=== PATIENT | female | born 1960 | race American Indian/Alaskan Native ===

== ENCOUNTER 2016-08-29 20:33 | Inpatient (IN) | payer MEDICAID ==
[2016-08-29 21:42] LABS: Hematocrit 30.2 % (30.3-42.9); Hemoglobin 9.1 gm/dl (10.1-14.3); Mean Corpuscular HGB Conc 30 % (30-34); Mean Corpuscular Volume 82 fl (79-97); Platelet Count 208 K/mm3 (140-440); White Blood Count 6.8 K/mm3 (4.5-11.0)
[2016-08-29 21:43] LABS: Mean Corpuscular Hemoglobin 25 pg (28-32); Red Cell Distribution Width 25.2 % (13.2-15.2)
[2016-08-29 21:50] LABS: Anion Gap 20 mmol/L; BUN/Creatinine Ratio 20.83; Blood Urea Nitrogen 25 mg/dL (7-17); Calcium 8.5 mg/dL (8.4-10.2); Carbon Dioxide 18 mmol/L (22-30); Chloride 95.8 mmol/L (98-107); Glucose 230 mg/dL (65-100); Potassium 4.5 mmol/L (3.6-5.0); Sodium 129 mmol/L (137-145)
[2016-08-29 22:20] LABS: Basophils % (Manual) 0 % (0.0-1.8); Blastocytes % (Manual) 0 %
[2016-08-29 22:21] LABS: Anisocytosis 2+; Elliptocytes Few
[2016-08-29 22:22] LABS: Diff Status Complete; Poikilocytosis 1+
[2016-08-30] MEDS ORDERED: NACL 0.9% 500 ML 500 ML IV ONE (06:48)
[2016-08-30] MEDS ORDERED: MORPHINE IV ONE (06:53)
[2016-08-30] MEDS ORDERED: NACL 0.9% 1000 ML 1,000 ML IV ONE (06:53)
--- NOTE | 2016-08-30 07:01 | Emergency Department Report ---
HPI - General Chief Complaint: Chest Pain Time Seen by Provider: 08/30/16 06:45 - HPI HPI: This is a 56-year-old Afro-Citizen Of [place] female who presents to the emergency department with complaint of intermittent chest pains from chronic angina but the patient says that she has been feeling worse over the past 3 days. She has some midsternal to right sided chest discomfort that radiates down the right arm causing some decreased sensation. She has some intermittent shortness of breath. She denies any nausea, vomiting, diaphoresis, back pain. The patient has a history of coronary artery disease with a history of 7 total stents. She has a history of previous PE but is also results of and has not missed any doses. She has a history of ischemic cardiomyopathy and her last echocardiogram in July showed a ejection fraction of 2024%. Patient was here one week ago and had a negative stress test for ischemia and was discharged with instructions to follow-up in 1-2 weeks in the office. Patient' s border guard is Dr. Agustín Jackson but she was seen here by [facility] cardiology. She has been taking her current medications but otherwise nothing else for her discomfort prior to presentation. She also has a past medical history of hypertension, hyperlipidemia, diabetes. ED Past Medical Hx - Past Medical History Hx Hypertension: Yes Hx Heart Attack/AMI: Yes Hx Congestive Heart Failure: (patient states) Hx Diabetes: Yes Hx Deep Vein Thrombosis: No Hx of Cancer: Yes (Uterine) Hx Seizures: No Hx Asthma: No Hx COPD: No Hx Dementia: No Additional medical history: CAD - Surgical History Hx Coronary Stent: Yes ((7) heart stents) Hx Pacemaker: No Hx Internal Defibrillator: No Additional Surgical History: HYSTERECTOMY - Social History Smoking Status: Never Smoker Substance Use Type: None - Medications Home Medications: Home Medications Medication Instructions Recorded Confirmed Last Taken Type Aspirin [Aspirin BABY CHEW TAB] 81 mg PO QDAY #30 tab.chew 08/15/16 08/30/16 Unknown Rx AtorvaSTATin [Lipitor] 40 mg PO QHS #30 tablet 08/15/16 08/30/16 Unknown Rx Carvedilol [Coreg] 12.5 mg PO BID #60 tablet 08/15/16 08/30/16 Unknown Rx ISOSORBIDE MONOnitrate [Imdur ER] 30 mg PO QDAY #30 tablet 08/15/16 08/30/16 Unknown Rx Lisinopril [Zestril TAB] 10 mg PO QDAY #30 tablet 08/15/16 08/30/16 Unknown Rx Rivaroxaban [Xarelto] 20 mg PO QDAY 08/15/16 08/30/16 Unknown History risperiDONE [RisperiDONE] 1 mg PO DAILY 08/15/16 08/30/16 Unknown History traMADol [Ultram] 50 mg PO Q6H PRN 08/15/16 08/30/16 Unknown History ED Review of Systems ROS: Stated complaint: CHEST PAIN, SHORTNESS OF BREATH Other details as noted in HPI Comment: All other systems reviewed and negative Constitutional: denies: chills, fever Eyes: denies: eye pain, eye discharge, vision change ENT: denies: ear pain, throat pain Respiratory: shortness of breath. denies: cough Cardiovascular: denies: chest pain, palpitations Gastrointestinal: denies: abdominal pain, nausea, diarrhea Genitourinary: denies: urgency, dysuria, discharge Musculoskeletal: denies: back pain, joint swelling, arthralgia Skin: denies: rash, lesions Neurological: denies: headache, weakness, paresthesias Physical Exam - Physical Exam Vital Signs: Vital Signs 08/29/16 08/29/16 20:42 20:57 Temperature 98.1 F 98.1 F Pulse Rate 80 80 Respiratory 18 Rate Blood Pressure 142/87 Blood Pressure 142/87 [Right] O2 Sat by Pulse 100 100 Oximetry Physical Exam: GENERAL: The patient is well-developed well-nourished. HEENT: Normocephalic. Atraumatic. Extraocular motions are intact. Patient has moist mucous membranes. Pupils equal reactive to light bilaterally. NECK: Supple. Trachea is midline. CHEST/LUNGS: Clear to auscultation. There is no respiratory distress noted. HEART/CARDIOVASCULAR: Regular. There is no tachycardia. There is no gallop rub or murmur. ABDOMEN: Abdomen is soft, nontender. Patient has normal bowel sounds. There is no abdominal distention. SKIN: Skin is warm and dry. 1-2+ pitting edema to the bilateral lower extremities. NEURO: The patient is awake, alert, and oriented. The patient is cooperative. The patient has no focal neurologic deficits. The patient has normal speech. MUSCULOSKELETAL: There is no tenderness or deformity. There is no limitation range of motion. There is no evidence of acute injury. ED Course Vital Signs 08/29/16 08/29/16 20:42 20:57 Temperature 98.1 F 98.1 F Pulse Rate 80 80 Respiratory 18 Rate Blood Pressure 142/87 Blood Pressure 142/87 [Right] O2 Sat by Pulse 100 100 Oximetry ED Medical Decision Making - Lab Data Result diagrams: 08/29/16 21:16 08/29/16 21:16 - EKG Data -: EKG Interpreted by Me EKG shows normal: sinus rhythm, axis, intervals, QRS complexes, ST-T waves (Non- specific St-T waves) - Radiology Data Radiology results: image reviewed interpreted by me: Chest x-ray shows mild to moderate cardiomegaly but otherwise there is no obvious pleural effusions or pneumonia or pneumothorax. - Medical Decision Making 56-year-old female presents to the emergency department with complaint of chest pain and some intermittent shortness of breath. Patient has a significant history for coronary artery disease with 7 stents as well as a history of CHF. Patient otherwise had negative troponins 3. No d-dimer or CT angiography was checked as the patient is on Zaroxolyn says she takes compliantly. Patient was given a dose of pain medication for her chest discomfort but has not gotten any relief. Due to her level of discomfort and her significant history the patient will be admitted to the hospital for further evaluation. Patient has been accepted for admission by the hospitalist, Dr. Farrar. - Differential Diagnosis [place], CHF, pneumonia, costochondritis, GERD Critical Care Time: No Critical care attestation.: If time is entered above; I have spent that time in minutes in the direct care of this critically ill patient, excluding procedure time. ED Disposition Clinical Impression: Hyponatremia Chest pain Qualifiers: Chest pain type: unspecified Qualified Code(s): R07.9 - Chest pain, unspecified Lower extremity edema Qualifiers: Laterality: bilateral Qualified Code(s): R60.0 - Localized edema Disposition: OP ADMITTED IP TO THIS HOSP Is pt being admited?: Yes Does the pt Need Aspirin: Yes Condition: Stable Instructions: Chest Pain (ED) Referrals: PRIMARY CARE, [Primary Care Provider] - 3-5 Days Time of Disposition: 10:52
--- NOTE | 2016-08-30 09:16 | Admit Criteria Form ---
Admission Criteria Documentation: CARDIOLOGY GRG Clinical Indications for Admission to Inpatient Care ( Place 'X' for any and all applicable criteria): Hospital admission is needed for appropriate care of the patient because of ANY ONE of the following (1): [ ] I. Hemodynamic instability as indicated by ALL of the following (1)(2)(3) (4)(5) [ ]a) Vital signs or other findings not as expected for chronic patient condition or baseline [ ]b) Instability indicated by ANY ONE of the following: [ ]i) Hypotension [ ]ii) Symptomatic Tachycardia unresponsive to treatment ( e.g., analgesia, fluids, sedation as indicated) [ ]iii) Inadequate perfusion indicated by ANY ONE of the following: [ ] 1) Lactic acidosis (> 2 mmol/L) [ ] 2) New abnormal capillary refill (> 3 seconds) [ ] 3) Reduced urine output [ ] 4) New altered mental status [ ]iv) Orthostatic vital sign changes unresponsive to treatment (e.g., fluids) [ ]v) IV inotropic or vasopressor medication required to maintain adequate blood pressure or perfusion [ ] II. Severe heart failure as indicated by ANY ONE of the following(17)(18) [ ]a) Respiratory distress [ ]b) Hypotension [ ]c) Anasarca (refractory to outpatient therapy) [ ]d) Cardiac arrhythmias of immediate concern [ ]e) Myocardial ischemia [ ] III. Cardiac arrhythmias or findings of immediate concern indicated by ANY ONE of the following (19)(20): [ ] a) Heart rhythms that are inherently dangerous or unstable indicated by ANY ONE of the following (21)(22)(23): [ ] i) Resuscitated ventricular fibrillation or cardiac arrest [ ] ii) Ventricular escape rhythm [ ] iii) Sustained ventricular tachycardia (30 seconds or more of ventricular rhythm at greater than 100 beats per minute) [ ] iv) Nonsustained ventricular tachycardia and ANY ONE of the following: [ ] 1) Suspected cardiac ischemia as cause or consequence of ventricular tachycardia [ ] 2) In setting of acute myocarditis [ ] b) Unstable cardiac conduction defects indicated by ANY ONE of the following(23)(24)(25) [ ] i) Type II second-degree atrioventricular block [ ]ii) Third-degree atrioventricular block [ ]iii) New-onset left bundle branch block with suspected myocardial ischemia [ ]c) Any heart rhythm and ANY ONE of the following (21)(22)(26)(27) (28) [ ] i) Continuous long-term ECG monitoring needed (e.g., initiation of drug requiring monitoring for more than 24 hours) [ ] ii) Patient has automatic implanted cardioverter defibrillator that is repeatedly firing, malfunctioning, or in need of immediate adjustment of settings beyond the scope of ambulatory or observation care [ ]d) Heart rhythms of concern due to ANY ONE of the following: [ ] i) Hypotension [ ] ii) Respiratory distress [ ] iii) Association with other significant symptoms (e.g., bradycardia with syncope or ongoing dizziness, supraventricular tachycardia with chest pain (14)(15)(17) [ ] IV. Monitoring for cardiac contusion beyond the scope of observation care needed [A](30)(31)(32) [ ] V. Surgical or device complication (e.g., valve replacement complication , pacemaker dysfunction) (35)(41)(44)(45)(46) [ ] . Inpatient palliative care needed. [B](49) Also use Inpatient Palliative Care Criteria [ ] VII. Nonbacterial thrombotic (marantic) endocarditis (36)(43)(47)(48) [X ] VIII. Cardiology condition, symptom, or finding for which emergency and observation care has failed or are not considered appropriate. [ ] IX. Acute valvular disease requiring inpatient as indicated by ANY ONE of the following (41) [ ]a) Acute valvular regurgitation (42) [ ]b) Noninfectious valvulitis (43) [ ]c) Obstructive valve thrombosis [ ]d) Paravalvular leak [ ]e) Other significant valvular disorder remaining after emergency or observation level of care (as appropriate) [ ]X. Pericardial disease requiring inpatient treatment as indicated by ANY ONE of the following (33)(34)(35)(36)(37) [ ]a) Suspected tamponade (38)(39)(40) [ ]b) Hemopericardium [ ]c) Other significant pericardial disorder remaining after emergency or observation level of care (as appropriate) [ ] XI. Cardiac ischemia beyond scope of emergency and observation care. [ ] XII. Hypertension requiring inpatient treatment as indicated by ANY ONE of the following (6)(7)(8) [ ]a) SBP greater than 220 mm Hg or DBP greater than 120 mmHg despite treatment [ ]b) SBP greater than 140 mm Hg or DBP greater than 100 mm Hg with evidence of acute end organ damage as indicated by ANY ONE of the following [ ] i) Altered mental status [ ] ii) Acute renal failure as indicated by new onset of ANY ONE of the following (9)(10)(11)(12)(13) [ ]1) 3-fold rise in serum creatinine from baseline [ ]2) Serum creatinine greater than 4 mg/dL ( 354 micromoles/L) with acute rise greater than 0.5 mg/dL (44.2 micromoles/L) [ ]3) Reduction of more than 75% in estimated glomerular filtration rate from baseline [ ]4) Estimated glomerular filtration rate less than 35 mL/min/1.73m2 (0.59 mL/sec/1.73m2) in child up to 18 years of age [ ]5) Cessation of urine output indicated by ALL of the following [ ]A. Adequate volume status [ ]B. Inadequate urine output as indicated by ANY ONE of the following [ ]a. Urine output less than 0.3 mL/kg/hr for 24 hours [ ]b. Anuria (urine output less than 0.1 mL/kg/hr) for 12 hours [ ] iii) Aortic dissection [ ] iv) Myocardial Ischemia [ ] v) Left ventricular heart failure [ ]vi) Retinal Hemorrhage [ ]vii) Other significant finding [ ]c) Hypertension in child requiring inpatient treatment as indicated by ALL of the following(14)(15)(16) [ ] i) Outpatient treatment not effective, not available, or not appropriate [ ]ii) SBP or DBP greater than 95th percentile for age [ ]iii) Evidence of acute end organ damage as indicated by ANY ONE of the following [ ]1) Altered mental status [ ]2) Acute renal failure as indicated by new onset of ANY ONE of the following(9)(10)(11)(12)(13) [ ]A. 3-fold rise in serum creatinine from baseline [ ]B. Serum creatinine greater than 4 mg/dL (354 micromoles/L) with acute rise greater than 0.5 mg/dL (44.2 micromoles/L) [ ]C. Reduction of more than 75% in estimated glomerular filtration rate from baseline [ ]D. Estimated glomerular filtration rate less than 35 mL/min/1.73m2 (0.59 mL/sec/1.73m2) in child up to 18 years of age [ ]E. Cessation of urine output indicated by ALL of the following [ ]a. Adequate volume status [ ]b. Inadequate urine output as indicated by ANY ONE of the following [ ]i) Urine output less than 0.3 mL/kg/hr for 24 hours [ ]ii) Anuria ( urine output less than 0.1 mL/kg/hr) for 12 hours [ ]3) Severe headache [ ]4) Visual disturbance [ ]5) Retinal hemorrhage [ ]6) Other significant finding [ ]XIII. Complications of transplanted heart indicated by ANY ONE of the following(61): [ ]a) Acute graft rejection requiring inpatient management (eg, intravenous immunosuppression)(62)(63) [ ]b) Acute graft heart failure indicated by ANY ONE of the following(64): [ ]i) Hemodynamic instability [ ]ii) Cardiac arrhythmias of immediate concern [ ]iii) Pulmonary edema that is very severe (eg, mechanical ventilation needed, imminent or likely, need for 100% oxygen to keep oxygen saturation above 90%) [ ]iv) Pulmonary edema that is persistent as indicated by ALL of the following: [ ]1) New need for oxygen therapy to keep oxygen saturation above 90% (or increased FiO2 need from baseline) [ ]2) Has not improved sufficiently with emergency department or observation care IV diuretics or other heart failure treatments[E] [ ]v) Altered mental status that is severe or persistent [ ]vi) Increased creatinine (new on laboratory test) with reduction of more than 50% in estimated glomerular filtration rate from baseline [ ]vii) Progressively (ongoing) rising creatinine (known from past laboratory test) with reduction of more than 25% in estimated glomerular filtration rate from baseline [ ]viii) Acute renal failure [ ]ix) Acute peripheral ischemia (eg, examination shows pulseless, cool, mottled, or cyanotic extremity) [ ]x) Pulmonary artery catheter monitoring needed [ ]xi) Other sign or symptom of heart failure requiring inpatient treatment (ie, too severe or not responsive to outpatient and observation care treatment) [ ]c) Infection requiring inpatient management (eg, Hemodynamic instability, need for intravenous antimicrobial treatment)(66)(67)(68)(69)(70) [ ]d) Cardiac allograft vasculopathy requiring inpatient management ( eg evidence of cardiac ischemia)(71) [ ]e) Other complication of transplanted heart (eg, stroke, severe pulmonary hypertension, severe valvular dysfunction) requiring inpatient management(72) The original [facility] [employer] content created by [employer] has been revised. The portions of the content which have been revised are identified through the use of italic text or in bold, and [facility] has neither reviewed nor approved the modified material. All other unmodified content is copyright [facility] [employer]. Please see references footnoted in the original [facility] [employer] edition 2016 Admission Criteria Met: Yes
--- NOTE | 2016-08-30 09:21 | XRay Report ---
Single view chest: Compared to 08/12/16. History: Chest pain. Findings: Mild cardiomegaly. Trachea is midline. No consolidation, pneumothorax or pleural effusion. Impression: No acute cardiopulmonary findings.
[2016-08-30] MEDS ORDERED: BABY ASPIRIN PO ONE (10:52)
[2016-08-30] MEDS ORDERED: SODIUM CHLORIDE FLUSH SYRINGE 10 ML IV PRN (11:47)
[2016-08-30] MEDS ORDERED: COREG PO SCH (12:00)
--- NOTE | 2016-08-30 12:11 | History and Physical Report ---
History of Present Illness Date of examination: 08/30/16 Date of admission: 08/30/16 Chief complaint: Chest pain. 3 days duration History of present illness: Patient is a 56-year-old lady who was a history of carotid disease status post several stent placements, congestive failure, bipolar disorder, presented emergency department with left-sided chest pain, radiating to the right chest and down the right arm. Endorses shortness of breath diaphoresis. Nausea vomiting 1. Klebsiella 101. Denies any abdominal pain. Diarrhea was felt to 5 times a day. Resolving. Denies any orthopnea proximal nocturnal dyspnea or palpitations. Initial troponin level was normal. ProBNP on admitted to the emergency department was 2703. Has a history of bipolar disorder. Had a normal stress test 10 days ago this hospital. Contacted the dock superintendent Dr. magdaleno Alexander who agrees see the patient. Past History Past Medical History: CAD, diabetes, hypertension, hyperlipidemia Medications and Allergies Allergies Allergy/AdvReac Type Severity Reaction Status Date / Time codeine Allergy Hives Verified 06/15/14 05:41 Home Medications Medication Instructions Recorded Confirmed Last Taken Type Aspirin [Aspirin BABY CHEW TAB] 81 mg PO QDAY #30 tab.chew 08/15/16 08/30/16 Unknown Rx AtorvaSTATin [Lipitor] 40 mg PO QHS #30 tablet 08/15/16 08/30/16 Unknown Rx Carvedilol [Coreg] 12.5 mg PO BID #60 tablet 08/15/16 08/30/16 Unknown Rx ISOSORBIDE MONOnitrate [Imdur ER] 30 mg PO QDAY #30 tablet 08/15/16 08/30/16 Unknown Rx Lisinopril [Zestril TAB] 10 mg PO QDAY #30 tablet 08/15/16 08/30/16 Unknown Rx Rivaroxaban [Xarelto] 20 mg PO QDAY 08/15/16 08/30/16 Unknown History risperiDONE [RisperiDONE] 1 mg PO DAILY 08/15/16 08/30/16 Unknown History traMADol [Ultram] 50 mg PO Q6H PRN 08/15/16 08/30/16 Unknown History Active Meds: Active Medications Aspirin (Ecotrin) 325 mg PO QDAY ROMY Atorvastatin Calcium (Lipitor) 40 mg PO QHS ROMY Carvedilol (Coreg) 12.5 mg PO BID ROMY Docusate Sodium (Colace) 100 mg PO BID ROMY Furosemide (Lasix) 20 mg IV QDAY [facility] Heparin Sodium (Porcine) (Heparin) 5,000 unit SUB-Q Q12HR [facility] Sodium Chloride (Nacl 0.9% 1000 Ml) 1,000 mls @ 150 mls/hr IV ONCE ONE Stop: 08/30/16 13:32 Last Admin: 08/30/16 09:09 Dose: 150 mls/hr Lisinopril (Zestril) 10 mg PO QDAY [facility] Morphine Sulfate (Morphine) 2 mg IV Q6HR PRN PRN Reason: Chest Pain Nitroglycerin (Nitro-Bid 2%) 1 inch TP TIDNTG ROMY PRN Reason: Protocol Potassium Chloride (K-Dur) 10 meq PO QDAY [facility] Risperidone (Risperdal) 1 mg PO DAILY [facility] Rivaroxaban (Xarelto) 20 mg PO QDAY ROMY PRN Reason: Protocol Sodium Chloride (Sodium Chloride Flush Syringe 10 Ml) 10 ml IV PRN PRN PRN Reason: LINE FLUSH Review of systems Constitutional: Well Nouridhed and Well developed. Head: NC/ AT Eyes: Denies any visual impairments. No discharge from the eyes Nose: Denies any rhinorrhea or epistaxis Throats: Denies any post nasal drainage. Ears: Denies any hearing deficits Cardiovascular system: Has chest pain, shortness of breath. Denies orthopnea, paroxysmal nocturnal dyspnea, or palpitation. Respiratory system: Denies any cough, difficulty breathing, wheezing, pleuritic chest pain, Gastrointestinal system: Denies any abdominal pain, nausea vomiting, hematemesis or melena. Endorses nausea vomiting diarrhea Neurological system: Denies any headache, slurred speech, facial droop, lateralizing weakness Genitalia system: Denies any dysuria, urinary frequency or urgency, urethral discharge Skin: No rashes, hyperpigmented spots. Hematological: Denies any cervical tenderness hemorrhages or petechia. Immunological: Denies any multiple septic spots, Lymphatic: Denies any generalized lymphadenopathy. Endocrine: Denies any polyuria, polydipsia, polyphagia. No heat or cold intolerance. Musculoskeletal system: No joint pain or swelling. Psych: No visual, tactile, auditory or hallucination Exam - Constitutional Vitals: Temp Pulse Resp BP Pulse Ox 98.1 F 94 H 25 H 164/90 100 08/29/16 20:57 08/30/16 11:32 03/18/17 11:32 08/30/16 11:32 08/30/16 11:00 General appearance: Present: no acute distress, well-nourished - EENT Eyes: Present: PERRL ENT: hearing intact, clear oral mucosa - Neck Neck: Present: supple, normal ROM - Respiratory Respiratory effort: normal Respiratory: bilateral: CTA - Cardiovascular Heart Sounds: Present: S1 & S2. Absent: rub, click - Extremities Extremities: pulses symmetrical, No edema Peripheral Pulses: within normal limits - Abdominal General gastrointestinal: Present: soft, non-tender, non-distended, normal bowel sounds Female genitourinary: Present: normal - Integumentary Integumentary: Present: clear, warm, dry - Musculoskeletal Musculoskeletal: gait normal, strength equal bilaterally - Psychiatric Psychiatric: appropriate mood/affect, intact judgment & insight - Neurologic Neurologic: CNII-XII intact, moves all extremities Results - Labs CBC & Chem 7: 08/29/16 21:16 08/29/16 21:16 Labs: Abnormal lab results 08/29/16 08/29/16 08/30/16 Range/Units 21:16 21:16 03:24 Hgb 9.1 L (10.1-14.3) gm/dl Hct 30.2 L (30.3-42.9) % MCH 25 L (28-32) pg RDW 25.2 H (13.2-15.2) % Seg Neuts % (Manual) 74.0 H (40.0-70.0) % Sodium 129 L (137-145) mmol/L Chloride 95.8 L (98-107) mmol/L Carbon Dioxide 18 L (22-30) mmol/L BUN 25 H (7-17) mg/dL Glucose 230 H (65-100) mg/dL NT-Pro-B Natriuret Pep 2703 H (0-900) pg/mL Assessment and Plan 1. Chest pain: Commence patient on oxygen nitroglycerin aspirin and morphine. Carotids consult for stress thallium. 2. Systolic heart failure: Continue the patient on carvedilol, lisinopril, Lasix. Echocardiogram if not was done in the past 6 months. 2 g sodium diet. Strict input and output chart. Daily weights. 3. Diabetes mellitus: Consistent carbohydrates diet as well as cardiac diet. Sliding scale insulin. 4. Bipolar disorder. Patient on risperidone. We'll continue with the same. 5. DVT prophylaxis and GI prophylaxis with Xeralto which patient is already on possibly from cardiaomyopathy. Pepcid for GI prophylaxis. Spent 35 minutes in direct patient care radiological and laboratory data during this admission process. Spoke with dock superintendent. Explained care plan to the Patient Was Progressed Understanding.
[2016-08-30] MEDS ORDERED: ZOFRAN ONE (12:15)
[2016-08-30] MEDS ORDERED: ZOFRAN IV PRN (12:16)
[2016-08-30] MEDS: LASIX IV SCH (12:30)
[2016-08-30] MEDS: MORPHINE IV PRN ×2 (12:32→19:08)
[2016-08-30] MEDS: HEPARIN SUB-Q SCH ×2 (12:33→22:07)
[2016-08-30] MEDS: NITRO-BID 2% TP SCH ×2 (12:35→20:31)
[2016-08-30 12:50] LABS: INR 1.3 (0.87-1.13)
[2016-08-30 12:51] LABS: Partial Thromboplastin Time 31.7 Sec. (24.2-36.6)
[2016-08-30 12:52] LABS: Creatine Kinase MB 3.1 ng/mL (0.0-4.0)
[2016-08-30 12:53] LABS: Creatine Kinase MB 3.3 ng/mL (0.0-4.0)
[2016-08-30 12:54] LABS: Creatine Kinase 160 units/L (30-135)
[2016-08-30] MEDS: COREG PO SCH ×2 (13:06→22:14)
[2016-08-30] MEDS ORDERED: DOBUTREX DRIP 500MG/D5W 250ML 500 MG/250 ML BAG IV ONE (13:27)
--- NOTE | 2016-08-30 14:43 | Consultation ---
History of Present Illness Consult date: 08/30/16 History of present illness: The patient is a 56 year old female with a history of CAD s/p PCI, HTN, DM, hyperlipidemia, cardiomyopathy, PE who presented with complaints of worsening substernal chest tightness with radiation down her right arm. She states she "always has chest pain" but that the pain has been more severe over the past several days. Associated with shortness of breath, nausea and diaphoresis. Troponin negative x 2. Stress test done 12/2014 was negative for ischemia. Echo done 06/2014 showed mild LVH, EF 30-35%, moderate MR, RVSP 38mmHg. Cardiac cath done 04/2014 showed patent LAD, LCX, RCA and 1st diagonal stents. Past History Past Medical History: CAD, diabetes, hypertension, hyperlipidemia Medications and Allergies Allergies Allergy/AdvReac Type Severity Reaction Status Date / Time codeine Allergy Hives Verified 06/15/14 05:41 Home Medications Medication Instructions Recorded Confirmed Last Taken Type Aspirin [Aspirin BABY CHEW TAB] 81 mg PO QDAY #30 tab.chew 08/15/16 08/30/16 Unknown Rx AtorvaSTATin [Lipitor] 40 mg PO QHS #30 tablet 08/15/16 08/30/16 Unknown Rx Carvedilol [Coreg] 12.5 mg PO BID #60 tablet 08/15/16 08/30/16 Unknown Rx ISOSORBIDE MONOnitrate [Imdur ER] 30 mg PO QDAY #30 tablet 08/15/16 08/30/16 Unknown Rx Lisinopril [Zestril TAB] 10 mg PO QDAY #30 tablet 08/15/16 08/30/16 Unknown Rx Rivaroxaban [Xarelto] 20 mg PO QDAY 08/15/16 08/30/16 Unknown History risperiDONE [RisperiDONE] 1 mg PO DAILY 08/15/16 08/30/16 Unknown History traMADol [Ultram] 50 mg PO Q6H PRN 08/15/16 08/30/16 Unknown History Active Meds: Active Medications Aspirin (Ecotrin) 325 mg PO QDAY ROMY Atorvastatin Calcium (Lipitor) 40 mg PO QHS ROMY Carvedilol (Coreg) 12.5 mg PO BID [facility] Last Admin: 08/30/16 13:06 Dose: 12.5 mg Docusate Sodium (Colace) 100 mg PO BID ROMY Furosemide (Lasix) 20 mg IV QDAY ROMY Last Admin: 08/30/16 12:30 Dose: 20 mg Heparin Sodium (Porcine) (Heparin) 5,000 unit SUB-Q Q12HR [facility] Last Admin: 08/30/16 12:33 Dose: 5,000 unit Dobutamine HCl/Dextrose (Dobutrex Drip 500mg/D5w 250ml) 500 mg in 250 mls @ 9.216 mls/hr IV TITR ONE PRN Reason: 4 MCG/KG/MIN Stop: 08/31/16 16:34 Lisinopril (Zestril) 10 mg PO QDAY [facility] Morphine Sulfate (Morphine) 2 mg IV Q6HR PRN PRN Reason: Chest Pain Last Admin: 08/30/16 12:32 Dose: 2 mg Nitroglycerin (Nitro-Bid 2%) 1 inch TP TIDNTG [facility] PRN Reason: Protocol Last Admin: 08/30/16 12:35 Dose: 1 inch Ondansetron HCl (Zofran) 4 mg IV Q6H PRN PRN Reason: Nausea Last Admin: 08/30/16 12:30 Dose: 4 mg Potassium Chloride (K-Dur) 10 meq PO QDAY [facility] Risperidone (Risperdal) 1 mg PO DAILY [facility] Rivaroxaban (Xarelto) 20 mg PO QDAY [facility] PRN Reason: Protocol Sodium Chloride (Sodium Chloride Flush Syringe 10 Ml) 10 ml IV PRN PRN PRN Reason: LINE FLUSH Physical Examination Vital Signs Temp Pulse Resp BP Pulse Ox 98.1 F 80 18 142/87 100 08/29/16 20:42 08/29/16 20:42 08/29/16 20:42 08/29/16 20:42 08/29/16 20:42 General appearance: mild distress Neck: Positive: JVD/HJR (3cm above clavicle) Extremities: Present: +1 Edema Results 08/29/16 21:16 08/29/16 21:16 - Imaging and Cardiology Echo: report reviewed - EKG Interpretation EKG: sinus rhythm, no acute changes Assessment and Plan Chest pain Malgorzata negative x 3 no acute EKG changes continue Imdur 30mg daily stress test negative for ischemia Ischemic cardiomyopathy/CHF currently compensated Echo 07/2016: EF 20-25%, impaired relaxation, mild AR, moderate MR, RVSP 80mmHg continue coreg and lisinopril Dobutrex drip to improve systolic failure. CAD s/p PCI [facility] 04/2014: patent LAD, LCX, RCA and 1st diagonal stents continue ASA, statin Hypertension Hyperlipidemia Diabetes Hx. of PE Hyponatremia: Most likely due to CHF and increased glucose.
[2016-08-30 16:02] LABS: Creatine Kinase MB 3.4 ng/mL (0.0-4.0)
[2016-08-30 16:03] LABS: Creatine Kinase 165 units/L (30-135)
[2016-08-30 19:57] LABS: Creatine Kinase MB 3.9 ng/mL (0.0-4.0)
[2016-08-30] MEDS: COLACE PO SCH (22:07)
[2016-08-30 23:50] LABS: Creatine Kinase MB 4.1 ng/mL (0.0-4.0)
[2016-08-31] MEDS: MORPHINE IV PRN ×3 (00:29→20:15)
[2016-08-31] MEDS: NITRO-BID 2% TP SCH (06:21)
[2016-08-31 07:18] LABS: Basophils % (Auto) 0.4 % (0.0-1.8); Eosinophils % (Auto) 1.1 % (0.0-4.3); Hematocrit 30.3 % (30.3-42.9); Hemoglobin 9.3 gm/dl (10.1-14.3); Mean Corpuscular HGB Conc 31 % (30-34); Mean Corpuscular Volume 80 fl (79-97); Platelet Count 221 K/mm3 (140-440); Red Blood Count 3.77 M/mm3 (3.65-5.03); White Blood Count 7.9 K/mm3 (4.5-11.0)
[2016-08-31 07:25] LABS: Mean Corpuscular Hemoglobin 25 pg (28-32); Red Cell Distribution Width 24.2 % (13.2-15.2)
[2016-08-31 07:40] LABS: Alanine Aminotransferase 19 units/L (7-56); Albumin 3.3 g/dL (3.9-5); Alkaline Phosphatase 152 units/L (35-129); Anion Gap 20 mmol/L; Blood Urea Nitrogen 18 mg/dL (7-17); Calcium 8.9 mg/dL (8.4-10.2); Carbon Dioxide 20 mmol/L (22-30); Chloride 96.6 mmol/L (98-107); Glucose 206 mg/dL (65-100); Potassium 4.5 mmol/L (3.6-5.0); Sodium 132 mmol/L (137-145); Total Protein 6.6 g/dL (6.3-8.2)
[2016-08-31] MEDS ORDERED: APRESOLINE IV PRN (09:30)
[2016-08-31] MEDS ORDERED: ZESTRIL PO SCH ×2 (10:00→22:00)
[2016-08-31] MEDS ORDERED: TYLENOL PO PRN (10:18)
[2016-08-31] MEDS: COLACE PO SCH ×2 (11:01→21:58)
[2016-08-31] MEDS: ECOTRIN PO SCH (11:02)
[2016-08-31] MEDS: COREG PO SCH ×3 (11:02→21:59)
[2016-08-31] MEDS: K-DUR PO SCH (11:03)
[2016-08-31] MEDS: HEPARIN SUB-Q SCH (11:03)
[2016-08-31] MEDS: RisperDAL PO SCH (11:03)
[2016-08-31] MEDS: XARELTO PO SCH (11:04)
[2016-08-31] MEDS: LASIX IV SCH ×3 (11:04→17:40)
--- NOTE | 2016-08-31 11:11 | Progress Note ---
Assessment and Plan Chest pain Malgorzata negative x 3 no acute EKG changes continue Imdur 30mg daily stress test negative for ischemia Ischemic cardiomyopathy/CHF currently compensated Echo 07/2016: EF 20-25%, impaired relaxation, mild AR, moderate MR, RVSP 80mmHg continue coreg and lisinopril Dobutrex drip to improve systolic failure. Increase lasix to 40 mg BID. CAD s/p PCI [facility] 04/2014: patent LAD, LCX, RCA and 1st diagonal stents continue ASA, statin Hypertension Increase carvedilol to 25 mg BID Hyperlipidemia Diabetes Hx. of PE Hyponatremia: Most likely due to CHF and increased glucose. Improving Subjective Date of service: 08/31/16 Interval history: C/O headache and shortness of breath. No chest pain. Still has edema. Objective Vital Signs Temp Pulse Pulse Resp Resp BP BP 08/31/16 08:00 98.2 F 86 18 179/105 08/31/16 06:21 84 174/92 08/31/16 06:19 20 08/31/16 05:34 98.2 F 84 20 180/102 08/31/16 03:29 74 08/31/16 01:14 97.9 F 84 20 190/110 08/31/16 00:29 18 08/30/16 22:14 85 151/88 08/30/16 22:00 18 08/30/16 21:29 97.8 F 85 20 151/88 08/30/16 20:31 84 121/76 08/30/16 18:40 121/76 08/30/16 17:04 121/76 08/30/16 16:32 85 19 121/76 08/30/16 14:20 72 15 121/76 Pulse Ox 08/31/16 08:00 97 08/31/16 06:21 08/31/16 06:19 08/31/16 05:34 99 08/31/16 03:29 08/31/16 01:14 99 08/31/16 00:29 08/30/16 22:14 08/30/16 22:00 08/30/16 21:29 100 08/30/16 20:31 08/30/16 18:40 100 08/30/16 17:04 100 08/30/16 16:32 100 08/30/16 14:20 99 - Physical Examination Neck: Positive: JVD/HJR (3cm above clavicle) Extremities: Present: +1 Edema - Labs and Meds Cardiac Enzymes 08/30/16 08/30/16 08/30/16 Range/Units 15:13 17:53 23:04 AST (5-40) units/L CK-MB (CK-2) 3.4 3.9 4.1 H (0.0-4.0) ng/mL 08/31/16 Range/Units 06:41 AST 24 (5-40) units/L CK-MB (CK-2) (0.0-4.0) ng/mL CBC 08/31/16 Range/Units 06:41 WBC 7.9 (4.5-11.0) K/mm3 RBC 3.77 (3.65-5.03) M/mm3 Hgb 9.3 L (10.1-14.3) gm/dl Hct 30.3 (30.3-42.9) % Plt Count 221 (140-440) K/mm3 Lymph # 0.8 L (1.2-5.4) K/mm3 [place] # 0.6 (0.0-0.8) K/mm3 Eos # 0.1 (0.0-0.4) K/mm3 Baso # 0.0 (0.0-0.1) K/mm3 Comprehensive Metabolic Panel 08/31/16 Range/Units 06:41 Sodium 132 L (137-145) mmol/L Potassium 4.5 (3.6-5.0) mmol/L Chloride 96.6 L (98-107) mmol/L Carbon Dioxide 20 L (22-30) mmol/L BUN 18 H (7-17) mg/dL Creatinine 0.8 (0.7-1.2) mg/dL Glucose 206 H (65-100) mg/dL Calcium 8.9 (8.4-10.2) mg/dL AST 24 (5-40) units/L ALT 19 (7-56) units/L Alkaline Phosphatase 152 H (35-129) units/L Total Protein 6.6 (6.3-8.2) g/dL Albumin 3.3 L (3.9-5) g/dL - Imaging and Cardiology Echo: report reviewed
[2016-08-31] MEDS ORDERED: MORPHINE IV ONE (12:28)
[2016-08-31] MEDS ORDERED: ZOFRAN IV ONE (12:28)
--- NOTE | 2016-08-31 18:05 | Progress Note ---
Assessment and Plan Assessment and plan: --Atypical chest pain Improved, probably secondary to congestive heart failure Cardiac enzymes and EKG negative. Stress test negative for reversible ischemia Continue current cardiac medications --History of coronary artery disease status post PCI Stable on aspirin and statin beta blockers and nitrates --Acute on chronic systolic congestive heart failure, ejection fraction last month is 20-25% Continue anti-failure medications diuretics beta blockers JESSICA inhibitor's nitrates Continue dobutamine per protocol and discontinue this evening --Type 2 diabetes mellitus; Moderate control Accu-Chek sliding scale coverage and ADA diet and insulin as needed --History of bipolar disorder stable on risperidone --Hypertension ;moderate control Continue current antihypertensives and when necessary medications --History of PE on Xeralto, stable --DVT prophylaxis patient is already on Xeralto , Pepcid for GI prophylaxis. Cardiology consult and recommendations noted and appreciated Plan of care discussed with the patient, answered all her QUESTIONS History Interval history: Patient seen and evaluated this morning medical records reviewed Admitted with worsening shortness of breath and acute on chronic congestive heart failure, on dobutamine drip Patient complains of some headache and nausea ,denies any chest pain , shortness of breath slightly better, cardiology following Alert awake oriented 3 not in acute distress, acute signs reviewed Hospitalist Physical - Constitutional Vitals: Temp Pulse Resp BP Pulse Ox 98.2 F 72 20 160/100 100 08/31/16 16:00 08/31/16 16:00 08/31/16 16:00 08/31/16 16:00 08/31/16 16:00 General appearance: Present: no acute distress, well-nourished, obese - EENT Eyes: Present: PERRL, EOM intact - Neck Neck: Present: supple, normal ROM - Respiratory Respiratory effort: normal Respiratory: bilateral: diminished, rales, negative: rhonchi, wheezing - Cardiovascular Rhythm: regular Heart Sounds: Present: S1 & S2 - Extremities Extremities: no ischemia, pulses intact, pulses symmetrical Extremity abnormal: edema Peripheral Pulses: within normal limits - Abdominal General gastrointestinal: soft, non-tender, non-distended, normal bowel sounds - Integumentary Integumentary: Present: clear, warm - Psychiatric Psychiatric: appropriate mood/affect, cooperative - Neurologic Neurologic: CNII-XII intact, moves all extremities Results - Labs CBC & Chem 7: 08/31/16 06:41 08/31/16 06:41 Labs: Laboratory Last Values WBC 7.9 K/mm3 (4.5-11.0) 08/31/16 06:41 RBC 3.77 M/mm3 (3.65-5.03) 08/31/16 06:41 Hgb 9.3 gm/dl (10.1-14.3) L 08/31/16 06:41 Hct 30.3 % (30.3-42.9) 08/31/16 06:41 MCV 80 fl (79-97) 08/31/16 06:41 MCH 25 pg (28-32) L 08/31/16 06:41 MCHC 31 % (30-34) 08/31/16 06:41 RDW 24.2 % (13.2-15.2) H 08/31/16 06:41 Plt Count 221 K/mm3 (140-440) 08/31/16 06:41 Lymph % (Auto) 10.1 % (13.4-35.0) L 08/31/16 06:41 [place] % (Auto) 7.1 % (0.0-7.3) 08/31/16 06:41 Eos % (Auto) 1.1 % (0.0-4.3) 08/31/16 06:41 Baso % (Auto) 0.4 % (0.0-1.8) 08/31/16 06:41 Lymph # 0.8 K/mm3 (1.2-5.4) L 08/31/16 06:41 [place] # 0.6 K/mm3 (0.0-0.8) 08/31/16 06:41 Eos # 0.1 K/mm3 (0.0-0.4) 08/31/16 06:41 Baso # 0.0 K/mm3 (0.0-0.1) 08/31/16 06:41 Add Manual Diff Complete 08/29/16 21:16 Total Counted 100 08/29/16 21:16 Seg Neutrophils % 81.3 % (40.0-70.0) H 08/31/16 06:41 Seg Neuts % (Manual) 74.0 % (40.0-70.0) H 08/29/16 21:16 Band Neutrophils % 0 % 08/29/16 21:16 Lymphocytes % (Manual) 22.0 % (13.4-35.0) 08/29/16 21:16 Reactive Lymphs % (Man) 0 % 08/29/16 21:16 Monocytes % (Manual) 3.0 % (0.0-7.3) 08/29/16 21:16 Eosinophils % (Manual) 1.0 % (0.0-4.3) 08/29/16 21:16 Basophils % (Manual) 0 % (0.0-1.8) 08/29/16 21:16 Metamyelocytes % 0 % 08/29/16 21:16 Myelocytes % 0 % 08/29/16 21:16 Promyelocytes % 0 % 08/29/16 21:16 Blast Cells % 0 % 08/29/16 21:16 Nucleated RBC % Not Reportable 08/29/16 21:16 Seg Neutrophils # 6.5 K/mm3 (1.8-7.7) 08/31/16 06:41 Seg Neutrophils # Man 5.0 K/mm3 (1.8-7.7) 08/29/16 21:16 Band Neutrophils # 0.0 K/mm3 08/29/16 21:16 Lymphocytes # (Manual) 1.5 K/mm3 (1.2-5.4) 08/29/16 21:16 Abs React Lymphs (Man) 0.0 K/mm3 08/29/16 21:16 Monocytes # (Manual) 0.2 K/mm3 (0.0-0.8) 08/29/16 21:16 Eosinophils # (Manual) 0.1 K/mm3 (0.0-0.4) 08/29/16 21:16 Basophils # (Manual) 0.0 K/mm3 (0.0-0.1) 08/29/16 21:16 Metamyelocytes # 0.0 K/mm3 08/29/16 21:16 Myelocytes # 0.0 K/mm3 08/29/16 21:16 Promyelocytes # 0.0 K/mm3 08/29/16 21:16 Blast Cells # 0.0 K/mm3 08/29/16 21:16 WBC Morphology Not Reportable 08/29/16 21:16 Hypersegmented Neuts Not Reportable 08/29/16 21:16 Hyposegmented Neuts Not Reportable 08/29/16 21:16 Hypogranular Neuts Not Reportable 08/29/16 21:16 Smudge Cells Not Reportable 08/29/16 21:16 Toxic Granulation Not Reportable 08/29/16 21:16 Toxic Vacuolation Not Reportable 08/29/16 21:16 Dohle Bodies Not Reportable 08/29/16 21:16 Pelger-Huet Anomaly Not Reportable 08/29/16 21:16 Alexei Rods Not Reportable 08/29/16 21:16 Platelet Estimate Appears normal 08/29/16 21:16 Clumped Platelets Not Reportable 08/29/16 21:16 Plt Clumps, EDTA Not Reportable 08/29/16 21:16 Large Platelets Not Reportable 08/29/16 21:16 Giant Platelets Not Reportable 08/29/16 21:16 Platelet Satelliting Not Reportable 08/29/16 21:16 Plt Morphology Comment Not Reportable 08/29/16 21:16 RBC Morphology Not Reportable 08/29/16 21:16 Dimorphic RBCs Not Reportable 08/29/16 21:16 Polychromasia Not Reportable 08/29/16 21:16 Hypochromasia Not Reportable 08/29/16 21:16 Poikilocytosis 1+ 08/29/16 21:16 Anisocytosis 2+ 08/29/16 21:16 Microcytosis Not Reportable 08/29/16 21:16 Macrocytosis Not Reportable 08/29/16 21:16 Spherocytes Not Reportable 08/29/16 21:16 Pappenheimer Bodies Not Reportable 08/29/16 21:16 Sickle Cells Not Reportable 08/29/16 21:16 Target Cells Not Reportable 08/29/16 21:16 Tear Drop Cells Not Reportable 08/29/16 21:16 Ovalocytes Not Reportable 08/29/16 21:16 Helmet Cells Not Reportable 08/29/16 21:16 [place] Bodies Not Reportable 08/29/16 21:16 [place] Rings Not Reportable 08/29/16 21:16 [place] Cells Not Reportable 08/29/16 21:16 Bite Cells Not Reportable 08/29/16 21:16 Crenated Cell Not Reportable 08/29/16 21:16 Elliptocytes Few 08/29/16 21:16 Acanthocytes (Spur) Not Reportable 08/29/16 21:16 Rouleaux Not Reportable 08/29/16 21:16 Hemoglobin C Crystals Not Reportable 08/29/16 21:16 Schistocytes Not Reportable 08/29/16 21:16 Malaria parasites Not Reportable 08/29/16 21:16 Leo Bodies Not Reportable 08/29/16 21:16 Hem Pathologist Commnt No 08/29/16 21:16 PT 16.1 Sec. (12.2-14.9) H 08/30/16 12:13 INR 1.30 (0.87-1.13) H 08/30/16 12:13 APTT 31.7 Sec. (24.2-36.6) 08/30/16 12:13 Sodium 132 mmol/L (137-145) L 08/31/16 06:41 Potassium 4.5 mmol/L (3.6-5.0) 08/31/16 06:41 Chloride 96.6 mmol/L (98-107) L 08/31/16 06:41 Carbon Dioxide 20 mmol/L (22-30) L 08/31/16 06:41 Anion Gap 20 mmol/L 08/31/16 06:41 BUN 18 mg/dL (7-17) H 08/31/16 06:41 Creatinine 0.8 mg/dL (0.7-1.2) 08/31/16 06:41 Estimated GFR > 60 ml/min 08/31/16 06:41 BUN/Creatinine Ratio 22.50 % 08/31/16 06:41 Glucose 206 mg/dL (65-100) H 08/31/16 06:41 Calcium 8.9 mg/dL (8.4-10.2) 08/31/16 06:41 Total Bilirubin 1.0 mg/dL (0.1-1.2) 08/31/16 06:41 AST 24 units/L (5-40) 08/31/16 06:41 ALT 19 units/L (7-56) 08/31/16 06:41 Alkaline Phosphatase 152 units/L (35-129) H 08/31/16 06:41 Total Creatine Kinase 222 units/L (30-135) H 08/30/16 23:04 CK-MB (CK-2) 4.1 ng/mL (0.0-4.0) H 08/30/16 23:04 CK-MB (CK-2) Rel Index 1.8 (0-4) 08/30/16 23:04 Troponin T < 0.010 ng/mL (0.00-0.029) 08/31/16 06:41 NT-Pro-B Natriuret Pep 2703 pg/mL (0-900) H 08/30/16 03:24 Total Protein 6.6 g/dL (6.3-8.2) 08/31/16 06:41 Albumin 3.3 g/dL (3.9-5) L 08/31/16 06:41 Albumin/Globulin Ratio 1.0 % 08/31/16 06:41 Triglycerides 62 mg/dL (2-149) 08/30/16 12:13 Cholesterol 102 mg/dL (50-199) 08/30/16 12:13 LDL Cholesterol Direct 53 mg/dL (50-130) 08/30/16 12:13 HDL Cholesterol 37 mg/dL (40-59) L 08/30/16 12:13 Cholesterol/HDL Ratio 2.75 % 08/30/16 12:13
[2016-08-31] MEDS: ZESTRIL PO SCH (21:59)
[2016-09-01] MEDS: MORPHINE IV PRN ×4 (04:12→23:55)
[2016-09-01] MEDS: LASIX IV SCH ×2 (05:48→18:07)
[2016-09-01 07:25] LABS: Basophils % (Auto) 0.4 % (0.0-1.8); Eosinophils % (Auto) 1.6 % (0.0-4.3); Hematocrit 29.9 % (30.3-42.9); Hemoglobin 9.5 gm/dl (10.1-14.3); Mean Corpuscular HGB Conc 32 % (30-34); Mean Corpuscular Volume 80 fl (79-97); Platelet Count 221 K/mm3 (140-440); Red Blood Count 3.73 M/mm3 (3.65-5.03); White Blood Count 6.7 K/mm3 (4.5-11.0)
[2016-09-01 07:27] LABS: Mean Corpuscular Hemoglobin 25 pg (28-32); Red Cell Distribution Width 24.6 % (13.2-15.2)
[2016-09-01 07:45] LABS: Alanine Aminotransferase 18 units/L (7-56); Albumin 3.1 g/dL (3.9-5); Albumin/Globulin Ratio 0.9 %; Alkaline Phosphatase 151 units/L (35-129); BUN/Creatinine Ratio 17.27; Bilirubin,Total 0.8 mg/dL (0.1-1.2); Blood Urea Nitrogen 19 mg/dL (7-17); Calcium 8.9 mg/dL (8.4-10.2); Carbon Dioxide 25 mmol/L (22-30); Glucose 272 mg/dL (65-100); Total Protein 6.7 g/dL (6.3-8.2)
[2016-09-01 07:46] LABS: Anion Gap 17 mmol/L; Chloride 94.8 mmol/L (98-107); Potassium 4.1 mmol/L (3.6-5.0); Sodium 133 mmol/L (137-145)
--- NOTE | 2016-09-01 08:38 | Progress Note ---
Assessment and Plan Atypical chest pain Malgorzata negative x 3 no acute EKG changes continue Imdur 30mg daily stress MPI 07/2016: no ischemia Ischemic cardiomyopathy/CHF currently compensated Echo 07/2016: EF 20-25%, impaired relaxation, mild AR, moderate MR, RVSP 80mmHg continue IV lasix 40 mg BID continue coreg and lisinopril completed 24 hrs. of dobutamine Hyponatremia-->improving Most likely due to CHF and increased glucose CAD s/p PCI [facility] 04/2014: patent LAD, LCX, RCA and 1st diagonal stents continue ASA, statin Hypertension stable continue carvedilol 25mg BID, lisinopril 20mg BID Hyperlipidemia Diabetes Hx. of PE continue Xarelto Stable cardiac status. Continue close monitoring of volume status and renal indices. Possible d/c home in am. The patient has been seen in conjunction with Dr. Nicholas who agrees with the assessment and plan of care. Subjective Date of service: 09/01/16 Principal diagnosis: atypical chest pain Interval history: The patient is sitting up in a chair. Chest pain and shortness of breath improved. Sinus rhythm on the monitor. Objective Last Vital Signs Temp 98 F 09/01/16 08:16 Pulse 88 09/01/16 10:42 Resp 16 09/01/16 08:16 BP 138/70 09/01/16 10:42 Pulse Ox 97 09/01/16 08:16 - Physical Examination General: No Apparent Distress HEENT: Positive: PERRL Neck: Positive: JVD/HJR (3cm above clavicle) Cardiac: Positive: Reg Rate and Rhythm, S1/S2 Lungs: Positive: clear to auscultation Neuro: Positive: Grossly Intact Abdomen: Positive: Soft, Active Bowel Sounds. Negative: Tender Skin: Positive: Clear. Negative: Rash Extremities: Present: +2 Edema (left > R) - Labs and Meds Cardiac Enzymes 09/01/16 Range/Units 06:22 AST 15 (5-40) units/L CBC 09/01/16 Range/Units 06:22 WBC 6.7 (4.5-11.0) K/mm3 RBC 3.73 (3.65-5.03) M/mm3 Hgb 9.5 L (10.1-14.3) gm/dl Hct 29.9 L (30.3-42.9) % Plt Count 221 (140-440) K/mm3 Lymph # 1.0 L (1.2-5.4) K/mm3 [place] # 0.5 (0.0-0.8) K/mm3 Eos # 0.1 (0.0-0.4) K/mm3 Baso # 0.0 (0.0-0.1) K/mm3 Comprehensive Metabolic Panel 09/01/16 Range/Units 06:22 Sodium 133 L (137-145) mmol/L Potassium 4.1 (3.6-5.0) mmol/L Chloride 94.8 L (98-107) mmol/L Carbon Dioxide 25 (22-30) mmol/L BUN 19 H (7-17) mg/dL Creatinine 1.1 (0.7-1.2) mg/dL Glucose 272 H (65-100) mg/dL Calcium 8.9 (8.4-10.2) mg/dL AST 15 (5-40) units/L ALT 18 (7-56) units/L Alkaline Phosphatase 151 H (35-129) units/L Total Protein 6.7 (6.3-8.2) g/dL Albumin 3.1 L (3.9-5) g/dL - Imaging and Cardiology Echo: report reviewed (07/2016: EF 20-25%, impaired relaxation, mild AR, moderate MR, RVSP 80mmHg) - Telemetry EKG Rhythm: Sinus Rhythm
[2016-09-01] MEDS: COLACE PO SCH ×2 (10:40→21:39)
[2016-09-01] MEDS: COREG PO SCH ×2 (10:40→21:41)
[2016-09-01] MEDS: ECOTRIN PO SCH (10:40)
[2016-09-01] MEDS: RisperDAL PO SCH (10:41)
[2016-09-01] MEDS: XARELTO PO SCH (10:41)
[2016-09-01] MEDS: K-DUR PO SCH (10:41)
[2016-09-01] MEDS: ZESTRIL PO SCH ×2 (10:42→21:42)
--- NOTE | 2016-09-01 15:27 | Progress Note ---
Assessment and Plan Assessment and plan: --Acute on chronic systolic congestive heart failure, ejection fraction last month is 20-25% Continue anti-failure medications diuretics beta blockers JESSICA inhibitor's nitrates Patient received dobutamine drip --Atypical chest pain Improved, probably secondary to congestive heart failure Cardiac enzymes and EKG negative. Stress test negative for reversible ischemia Continue current cardiac medications --History of coronary artery disease status post PCI Stable on aspirin and statin beta blockers and nitrates --Type 2 diabetes mellitus; Moderate control Accu-Chek sliding scale coverage and ADA diet and insulin as needed --History of bipolar disorder stable on risperidone --Hypertension ;moderate control Continue current antihypertensives and when necessary medications --History of PE on Xeralto, stable --DVT prophylaxis patient is already on Xeralto , Pepcid for GI prophylaxis. Out of bed to chair, ambulate as tolerated Possible discharge in 1-2 days if stable History Interval history: Patient seen and evaluated in her room medical records reviewed Patient feels slightly better denies any nausea vomiting, shortness of breath significantly improved Alert awake oriented 3 not in acute distress Vital signs reviewed stable Hospitalist Physical - Constitutional Vitals: Temp Pulse Resp BP Pulse Ox 97 F L 80 18 152/79 97 09/01/16 12:42 09/01/16 12:42 09/01/16 12:42 09/01/16 12:42 09/01/16 12:42 General appearance: Present: no acute distress, well-nourished, obese - EENT Eyes: Present: PERRL, EOM intact - Neck Neck: Present: supple, normal ROM - Respiratory Respiratory effort: normal Respiratory: bilateral: diminished, rales, negative: rhonchi, wheezing - Cardiovascular Rhythm: regular Heart Sounds: Present: S1 & S2 - Extremities Extremities: no ischemia, pulses intact, pulses symmetrical Peripheral Pulses: within normal limits - Abdominal General gastrointestinal: soft, non-tender, non-distended, normal bowel sounds - Integumentary Integumentary: Present: clear, warm - Psychiatric Psychiatric: appropriate mood/affect, cooperative - Neurologic Neurologic: CNII-XII intact, moves all extremities Results - Labs CBC & Chem 7: 09/01/16 06:22 09/01/16 06:22 Labs: Laboratory Last Values WBC 6.7 K/mm3 (4.5-11.0) 09/01/16 06:22 RBC 3.73 M/mm3 (3.65-5.03) 09/01/16 06:22 Hgb 9.5 gm/dl (10.1-14.3) L 09/01/16 06:22 Hct 29.9 % (30.3-42.9) L 09/01/16 06:22 MCV 80 fl (79-97) 09/01/16 06:22 MCH 25 pg (28-32) L 09/01/16 06:22 MCHC 32 % (30-34) 09/01/16 06:22 RDW 24.6 % (13.2-15.2) H 09/01/16 06:22 Plt Count 221 K/mm3 (140-440) 09/01/16 06:22 Lymph % (Auto) 14.2 % (13.4-35.0) 09/01/16 06:22 [place] % (Auto) 6.8 % (0.0-7.3) 09/01/16 06:22 Eos % (Auto) 1.6 % (0.0-4.3) 09/01/16 06:22 Baso % (Auto) 0.4 % (0.0-1.8) 09/01/16 06:22 Lymph # 1.0 K/mm3 (1.2-5.4) L 09/01/16 06:22 [place] # 0.5 K/mm3 (0.0-0.8) 09/01/16 06:22 Eos # 0.1 K/mm3 (0.0-0.4) 09/01/16 06:22 Baso # 0.0 K/mm3 (0.0-0.1) 09/01/16 06:22 Add Manual Diff Complete 08/29/16 21:16 Total Counted 100 08/29/16 21:16 Seg Neutrophils % 77.0 % (40.0-70.0) H 09/01/16 06:22 Seg Neuts % (Manual) 74.0 % (40.0-70.0) H 08/29/16 21:16 Band Neutrophils % 0 % 08/29/16 21:16 Lymphocytes % (Manual) 22.0 % (13.4-35.0) 08/29/16 21:16 Reactive Lymphs % (Man) 0 % 08/29/16 21:16 Monocytes % (Manual) 3.0 % (0.0-7.3) 08/29/16 21:16 Eosinophils % (Manual) 1.0 % (0.0-4.3) 08/29/16 21:16 Basophils % (Manual) 0 % (0.0-1.8) 08/29/16 21:16 Metamyelocytes % 0 % 08/29/16 21:16 Myelocytes % 0 % 08/29/16 21:16 Promyelocytes % 0 % 08/29/16 21:16 Blast Cells % 0 % 08/29/16 21:16 Nucleated RBC % Not Reportable 08/29/16 21:16 Seg Neutrophils # 5.2 K/mm3 (1.8-7.7) 09/01/16 06:22 Seg Neutrophils # Man 5.0 K/mm3 (1.8-7.7) 08/29/16 21:16 Band Neutrophils # 0.0 K/mm3 08/29/16 21:16 Lymphocytes # (Manual) 1.5 K/mm3 (1.2-5.4) 08/29/16 21:16 Abs React Lymphs (Man) 0.0 K/mm3 08/29/16 21:16 Monocytes # (Manual) 0.2 K/mm3 (0.0-0.8) 08/29/16 21:16 Eosinophils # (Manual) 0.1 K/mm3 (0.0-0.4) 08/29/16 21:16 Basophils # (Manual) 0.0 K/mm3 (0.0-0.1) 08/29/16 21:16 Metamyelocytes # 0.0 K/mm3 08/29/16 21:16 Myelocytes # 0.0 K/mm3 08/29/16 21:16 Promyelocytes # 0.0 K/mm3 08/29/16 21:16 Blast Cells # 0.0 K/mm3 08/29/16 21:16 WBC Morphology Not Reportable 08/29/16 21:16 Hypersegmented Neuts Not Reportable 08/29/16 21:16 Hyposegmented Neuts Not Reportable 08/29/16 21:16 Hypogranular Neuts Not Reportable 08/29/16 21:16 Smudge Cells Not Reportable 08/29/16 21:16 Toxic Granulation Not Reportable 08/29/16 21:16 Toxic Vacuolation Not Reportable 08/29/16 21:16 Dohle Bodies Not Reportable 08/29/16 21:16 Pelger-Huet Anomaly Not Reportable 08/29/16 21:16 Alexei Rods Not Reportable 08/29/16 21:16 Platelet Estimate Appears normal 08/29/16 21:16 Clumped Platelets Not Reportable 08/29/16 21:16 Plt Clumps, EDTA Not Reportable 08/29/16 21:16 Large Platelets Not Reportable 08/29/16 21:16 Giant Platelets Not Reportable 08/29/16 21:16 Platelet Satelliting Not Reportable 08/29/16 21:16 Plt Morphology Comment Not Reportable 08/29/16 21:16 RBC Morphology Not Reportable 08/29/16 21:16 Dimorphic RBCs Not Reportable 08/29/16 21:16 Polychromasia Not Reportable 08/29/16 21:16 Hypochromasia Not Reportable 08/29/16 21:16 Poikilocytosis 1+ 08/29/16 21:16 Anisocytosis 2+ 08/29/16 21:16 Microcytosis Not Reportable 08/29/16 21:16 Macrocytosis Not Reportable 08/29/16 21:16 Spherocytes Not Reportable 08/29/16 21:16 Pappenheimer Bodies Not Reportable 08/29/16 21:16 Sickle Cells Not Reportable 08/29/16 21:16 Target Cells Not Reportable 08/29/16 21:16 Tear Drop Cells Not Reportable 08/29/16 21:16 Ovalocytes Not Reportable 08/29/16 21:16 Helmet Cells Not Reportable 08/29/16 21:16 [place] Bodies Not Reportable 08/29/16 21:16 [place] Rings Not Reportable 08/29/16 21:16 Cr Cells Not Reportable 08/29/16 21:16 Bite Cells Not Reportable 08/29/16 21:16 Crenated Cell Not Reportable 08/29/16 21:16 Elliptocytes Few 08/29/16 21:16 Acanthocytes (Spur) Not Reportable 08/29/16 21:16 Rouleaux Not Reportable 08/29/16 21:16 Hemoglobin C Crystals Not Reportable 08/29/16 21:16 Schistocytes Not Reportable 08/29/16 21:16 Malaria parasites Not Reportable 08/29/16 21:16 Leo Bodies Not Reportable 08/29/16 21:16 Hem Pathologist Commnt No 08/29/16 21:16 PT 16.1 Sec. (12.2-14.9) H 08/30/16 12:13 INR 1.30 (0.87-1.13) H 08/30/16 12:13 APTT 31.7 Sec. (24.2-36.6) 08/30/16 12:13 Sodium 133 mmol/L (137-145) L 09/01/16 06:22 Potassium 4.1 mmol/L (3.6-5.0) 09/01/16 06:22 Chloride 94.8 mmol/L (98-107) L 09/01/16 06:22 Carbon Dioxide 25 mmol/L (22-30) 09/01/16 06:22 Anion Gap 17 mmol/L 09/01/16 06:22 BUN 19 mg/dL (7-17) H 09/01/16 06:22 Creatinine 1.1 mg/dL (0.7-1.2) 09/01/16 06:22 Estimated GFR > 60 ml/min 09/01/16 06:22 BUN/Creatinine Ratio 17.27 % 09/01/16 06:22 Glucose 272 mg/dL (65-100) H 09/01/16 06:22 Calcium 8.9 mg/dL (8.4-10.2) 09/01/16 06:22 Total Bilirubin 0.8 mg/dL (0.1-1.2) 09/01/16 06:22 AST 15 units/L (5-40) 09/01/16 06:22 ALT 18 units/L (7-56) 09/01/16 06:22 Alkaline Phosphatase 151 units/L (35-129) H 09/01/16 06:22 Total Creatine Kinase 222 units/L (30-135) H 08/30/16 23:04 CK-MB (CK-2) 4.1 ng/mL (0.0-4.0) H 08/30/16 23:04 CK-MB (CK-2) Rel Index 1.8 (0-4) 08/30/16 23:04 Troponin T < 0.010 ng/mL (0.00-0.029) 08/31/16 06:41 NT-Pro-B Natriuret Pep 2703 pg/mL (0-900) H 08/30/16 03:24 Total Protein 6.7 g/dL (6.3-8.2) 09/01/16 06:22 Albumin 3.1 g/dL (3.9-5) L 09/01/16 06:22 Albumin/Globulin Ratio 0.9 % 09/01/16 06:22 Triglycerides 62 mg/dL (2-149) 08/30/16 12:13 Cholesterol 102 mg/dL (50-199) 08/30/16 12:13 LDL Cholesterol Direct 53 mg/dL (50-130) 08/30/16 12:13 HDL Cholesterol 37 mg/dL (40-59) L 08/30/16 12:13 Cholesterol/HDL Ratio 2.75 % 08/30/16 12:13
[2016-09-02] MEDS: MORPHINE IV PRN ×2 (06:02→12:34)
[2016-09-02] MEDS: LASIX IV SCH (06:02)
--- NOTE | 2016-09-02 08:24 | Discharge Summary ---
Providers - Providers Date of Admission: 08/30/16 14:05 Date of discharge: 09/02/16 Attending physician: DESTINEE COLVIN Primary care physician: MIDDLE STITCHER Hospitalization Condition: Stable Disposition: DISCHARGED TO HOME OR SELFCARE Core Measure Documentation - Palliative Care Palliative Care/ Comfort Measures: Not Applicable - Core Measures Any of the following diagnoses?: heart failure - Heart Failure Discharge Requirements JESSICA/ARB for LVSD if EF <40%: Yes Beta mckenzie at discharge: Yes Exam - Constitutional Vitals: Temp Pulse Resp BP Pulse Ox 98.6 F 69 20 149/81 99 09/02/16 06:29 09/02/16 06:29 09/02/16 06:29 09/02/16 06:29 09/02/16 06:29 Plan Activity: advance as tolerated Diet: low salt, other (cardiac diet) Special Instructions: restrict fluid intake to (< 1000 ml/day) Follow up with: MILENA MARCUM MD [Primary Care Provider] - 3-5 Days LAKSHMI CLAROS MD [Staff Physician] - 7 Days Prescriptions: Carvedilol [Coreg] 25 mg PO BID #60 tablet Lisinopril [Zestril TAB] 20 mg PO BID #60 tablet Potassium Chloride [K-Dur] 10 meq PO QDAY #30 tablet
[2016-09-02] MEDS: COREG PO SCH (09:50)
[2016-09-02] MEDS: XARELTO PO SCH (09:50)
[2016-09-02] MEDS: ZESTRIL PO SCH (09:51)
[2016-09-02] MEDS: K-DUR PO SCH (09:51)
[2016-09-02] MEDS: COLACE PO SCH (09:51)
[2016-09-02] MEDS: ECOTRIN PO SCH (09:51)
[2016-09-02] MEDS: RisperDAL PO SCH (09:51)
[2016-09-02] MEDS ORDERED: FLUARIX QUAD 2016-2017(36 MOS+) IM ONE (12:00)
--- NOTE | 2016-09-02 13:34 | Progress Note ---
Assessment and Plan Atypical chest pain Malgorzata negative x 3 no acute EKG changes continue Imdur 30mg daily stress MPI 07/2016: no ischemia Ischemic cardiomyopathy/CHF currently compensated Echo 07/2016: EF 20-25%, impaired relaxation, mild AR, moderate MR, RVSP 80mmHg continue lasix--> will change to 40mg PO daily continue coreg and lisinopril completed 24 hrs. of dobutamine Hyponatremia-->improving Most likely due to CHF and increased glucose CAD s/p PCI [facility] 04/2014: patent LAD, LCX, RCA and 1st diagonal stents continue ASA, statin Hypertension stable continue carvedilol 25mg BID, lisinopril 20mg BID Hyperlipidemia Diabetes Hx. of PE continue Xarelto Stable cardiac status. Continue current management. Patient may be discharged from a cardiac standpoint. Follow up in the office with Dr. Nicholas in 1-2 weeks. The patient has been seen in conjunction with Dr. Nicholas who agrees with the assessment and plan of care. Subjective Date of service: 09/02/16 Principal diagnosis: atypical chest pain Interval history: The patient is resting in bed. No new complaints. Sinus rhythm on the monitor. Objective Last Vital Signs Temp 97.9 F 09/02/16 08:00 Pulse 86 09/02/16 11:00 Resp 18 09/02/16 08:00 BP 153/87 09/02/16 09:51 Pulse Ox 98 09/02/16 08:00 - Physical Examination General: No Apparent Distress HEENT: Positive: PERRL Neck: Positive: neck supple, trachea midline, JVD/HJR (3cm above clavicle) Cardiac: Positive: Reg Rate and Rhythm, S1/S2 Lungs: Positive: clear to auscultation Neuro: Positive: Grossly Intact Abdomen: Positive: Soft, Active Bowel Sounds. Negative: Tender Skin: Positive: Clear. Negative: Rash Extremities: Present: +1 Edema (left lower leg) - Imaging and Cardiology Echo: report reviewed (07/2016: EF 20-25%, impaired relaxation, mild AR, moderate MR, RVSP 80mmHg) - Telemetry EKG Rhythm: Sinus Rhythm
[2016-09-02 13:45] VITALS: BP 140/80
[2016-09-03] MEDS ORDERED: LASIX PO SCH (06:00)
== END 2016-09-02 15:26 | disposition home or self-care (01) | DRG 292 ==
LOC: ED 20:33 → 4A 08-30 14:05
PROVIDERS: ADMIT Family Medicine; ATTEND Internal Medicine
DX: I11.0 Hypertensive heart disease with heart failure (principal); E87.1 Hypo-osmolality and hyponatremia; I50.23 Acute on chronic systolic (congestive) heart failure; I25.10 Atherosclerotic heart disease of native coronary artery without angina pectoris; I25.5 Ischemic cardiomyopathy; F31.9 Bipolar disorder, unspecified; E78.5 Hyperlipidemia, unspecified; E11.9 Type 2 diabetes mellitus without complications; Z88.6 Allergy status to analgesic agent; Z95.5 Presence of coronary angioplasty implant and graft; Z86.711 Personal history of pulmonary embolism; Z85.42 Personal history of malignant neoplasm of other parts of uterus; Z90.710 Acquired absence of both cervix and uterus; Z79.899 Other long term (current) drug therapy
CPT/HCPCS: 36415; 71010; 80048; 80053; 80061; 82550; 82553; 83880; 84484; 85007; 85025; 85610; 85730; 90686; 93005; 93010; 96361; 96374; 96375; A9270-GY; J0360; J1250; J1644; J1940; J2270; J2405; J7030

== ENCOUNTER 2017-06-27 22:37 | Emergency (ER) | payer MEDICAID ==
[2017-06-27] MEDS ORDERED: ASPIRIN PO ONE (23:04)
[2017-06-28 00:01] LABS: Basophils % (Auto) 0.4 % (0.0-1.8); Eosinophils # (Auto) 0.1 K/mm3 (0.0-0.4); Eosinophils % (Auto) 1.1 % (0.0-4.3); Hematocrit 39.6 % (30.3-42.9); Hemoglobin 12.3 gm/dl (10.1-14.3); Lymphocytes # (Auto) 1.9 K/mm3 (1.2-5.4); Lymphocytes % (Auto) 28.9 % (13.4-35.0); Mean Corpuscular HGB Conc 31 % (30-34); Mean Corpuscular Hemoglobin 29 pg (28-32); Mean Corpuscular Volume 93 fl (79-97); Monocytes # (Auto) 0.5 K/mm3 (0.0-0.8); Monocytes % (Auto) 8.2 % (0.0-7.3); Platelet Count 255 K/mm3 (140-440); Red Blood Count 4.26 M/mm3 (3.65-5.03)
[2017-06-28 00:04] LABS: Red Cell Distribution Width 20.1 % (13.2-15.2)
[2017-06-28 00:21] LABS: Calcium 9.3 mg/dL (8.4-10.2)
[2017-06-28] MEDS ORDERED: TORADOL IV ONE (06:45)
[2017-06-28] MEDS ORDERED: MORPHINE IV ONE (06:45)
[2017-06-28] MEDS ORDERED: NACL 0.9% 500 ML 500 ML IV ONE ×2 (06:45→09:16)
[2017-06-28] MEDS ORDERED: ZOFRAN IV ONE (06:45)
--- NOTE | 2017-06-28 06:48 | Emergency Department Report ---
ED General Adult HPI - General Chief complaint: Chest Pain Stated complaint: CHEST PAIN,ABDOMINAL PAIN Time Seen by Provider: 06/28/17 06:40 Source: patient Mode of arrival: Ambulatory Limitations: No Limitations - History of Present Illness Initial comments: Patient is a 56-year-old black female who is presenting with flulike symptoms. Patient states that she has been having cough cold congestion with chest pain with coughing for the last 3 days. MAXIMUM TEMPERATURE 101. Patient also states she has had body aches that is 7 out of 10 in severity nausea vomiting 4 and diarrhea 4. Patient states the cough is productive of clear sputum. Patient has a past history of asthma or congestive heart failure COPD diabetes hypertension. Improves with: none Worsens with: none Associated Symptoms: chest pain, cough, fever/chills, headaches, loss of appetite, malaise, nausea/vomiting, shortness of breath, weakness. denies: confusion, rash, seizure, syncope Treatments Prior to Arrival: none - Related Data Home Medications Medication Instructions Recorded Confirmed Last Taken Rivaroxaban [Xarelto] 20 mg PO QDAY 08/15/16 08/30/16 Unknown risperiDONE [RisperiDONE] 1 mg PO DAILY 08/15/16 08/30/16 Unknown traMADol [Ultram 50 MG tab] 50 mg PO Q6H PRN 08/15/16 08/30/16 Unknown Previous Rx's Medication Instructions Recorded Last Taken Type Aspirin [Aspirin BABY CHEW TAB] 81 mg PO QDAY #30 tab.chew 08/15/16 Unknown Rx AtorvaSTATin [Lipitor] 40 mg PO QHS #30 tablet 08/15/16 Unknown Rx ISOSORBIDE MONOnitrate [Imdur ER] 30 mg PO QDAY #30 tablet 08/15/16 Unknown Rx Carvedilol [Coreg] 25 mg PO BID #60 tablet 09/02/16 Unknown Rx Furosemide [Lasix TAB] 40 mg PO QDAY #30 tablet 09/02/16 Unknown Rx Lisinopril [Zestril TAB] 20 mg PO BID #60 tablet 09/02/16 Unknown Rx Potassium Chloride [K-Dur] 10 meq PO QDAY #30 tablet 09/02/16 Unknown Rx ALBUTEROL Inhaler [ProAir HFA 2 puff IH QID PRN #1 inhalation 06/28/17 Unknown Rx Inhaler] Benzonatate [Tessalon Perle] 100 mg PO TID #12 capsule 06/28/17 Unknown Rx Ibuprofen [Motrin] 600 mg PO Q8H PRN #20 tablet 06/28/17 Unknown Rx Ondansetron [Zofran Odt] 4 mg PO Q8HR #10 tab.rapdis 06/28/17 Unknown Rx traMADol [Ultram] 50 mg PO Q6HR PRN #15 tablet 06/28/17 Unknown Rx Allergies Allergy/AdvReac Type Severity Reaction Status Date / Time codeine Allergy Hives Verified 06/15/14 05:41 ED Review of Systems ROS: Stated complaint: CHEST PAIN,ABDOMINAL PAIN Other details as noted in HPI Comment: All other systems reviewed and negative ED Past Medical Hx - Past Medical History Hx Hypertension: Yes Hx Heart Attack/AMI: Yes Hx Congestive Heart Failure: Yes Hx Diabetes: Yes Hx Deep Vein Thrombosis: No Hx Seizures: No Hx Asthma: Yes Hx COPD: Yes Hx Dementia: Yes Additional medical history: CAD - Surgical History Hx Coronary Stent: Yes ((7) heart stents) Hx Pacemaker: No Hx Internal Defibrillator: No Additional Surgical History: HYSTERECTOMY - Social History Smoking Status: Never Smoker Substance Use Type: None - Medications Home Medications: Home Medications Medication Instructions Recorded Confirmed Last Taken Type Aspirin [Aspirin BABY CHEW TAB] 81 mg PO QDAY #30 tab.chew 08/15/16 08/30/16 Unknown Rx AtorvaSTATin [Lipitor] 40 mg PO QHS #30 tablet 08/15/16 08/30/16 Unknown Rx ISOSORBIDE MONOnitrate [Imdur ER] 30 mg PO QDAY #30 tablet 08/15/16 08/30/16 Unknown Rx Rivaroxaban [Xarelto] 20 mg PO QDAY 08/15/16 08/30/16 Unknown History risperiDONE [RisperiDONE] 1 mg PO DAILY 08/15/16 08/30/16 Unknown History traMADol [Ultram 50 MG tab] 50 mg PO Q6H PRN 08/15/16 08/30/16 Unknown History Carvedilol [Coreg] 25 mg PO BID #60 tablet 09/02/16 Unknown Rx Furosemide [Lasix TAB] 40 mg PO QDAY #30 tablet 09/02/16 Unknown Rx Lisinopril [Zestril TAB] 20 mg PO BID #60 tablet 09/02/16 Unknown Rx Potassium Chloride [K-Dur] 10 meq PO QDAY #30 tablet 09/02/16 Unknown Rx ALBUTEROL Inhaler [ProAir HFA 2 puff IH QID PRN #1 inhalation 06/28/17 Unknown Rx Inhaler] Benzonatate [Tessalon Perle] 100 mg PO TID #12 capsule 06/28/17 Unknown Rx Ibuprofen [Motrin] 600 mg PO Q8H PRN #20 tablet 06/28/17 Unknown Rx Ondansetron [Zofran Odt] 4 mg PO Q8HR #10 tab.rapdis 06/28/17 Unknown Rx traMADol [Ultram] 50 mg PO Q6HR PRN #15 tablet 06/28/17 Unknown Rx ED Physical Exam - General Limitations: No Limitations General appearance: alert, in no apparent distress - Head Head exam: Present: atraumatic, normocephalic - Eye Eye exam: Present: normal appearance - ENT ENT exam: Present: mucous membranes moist - Neck Neck exam: Present: normal inspection - Respiratory Respiratory exam: Present: normal lung sounds bilaterally. Absent: respiratory distress - Cardiovascular Cardiovascular Exam: Present: regular rate, normal rhythm. Absent: systolic murmur, diastolic murmur, rubs, gallop - GI/Abdominal GI/Abdominal exam: Present: soft, normal bowel sounds - Extremities Exam Extremities exam: Present: normal inspection - Back Exam Back exam: Present: normal inspection - Neurological Exam Neurological exam: Present: alert, oriented X3 - Psychiatric Psychiatric exam: Present: normal affect, normal mood - Skin Skin exam: Present: warm, dry, intact, normal color. Absent: rash ED Course Vital Signs 06/27/17 06/28/17 06/28/17 22:57 06:17 06:57 Temperature 98 F 98.2 F Pulse Rate 66 74 Respiratory 16 16 16 Rate Blood Pressure 158/81 Blood Pressure 174/93 [Right] O2 Sat by Pulse 99 98 Oximetry 06/28/17 06/28/17 09:13 09:14 Temperature Pulse Rate Respiratory 18 16 Rate Blood Pressure Blood Pressure [Right] O2 Sat by Pulse Oximetry ED Medical Decision Making - Lab Data Result diagrams: 06/27/17 23:45 06/27/17 23:45 - EKG Data -: EKG Interpreted by Mt - EKG Data Interpretation: other (EKG shows sinus rhythm with a rate of 68 and normal axis normal intervals no ST segment changes the left bundle-branch block septal Q waves are present time of interpretation [id number]) - Medical Decision Making Patient is a 56-year-old [place] female who is presenting with flulike symptoms. Patient did show some mild dehydration and hyperglycemia. Patient was hydrated given pain meds will be discharged with symptomatic relief Critical care attestation.: If time is entered above; I have spent that time in minutes in the direct care of this critically ill patient, excluding procedure time. ED Disposition Clinical Impression: Influenza, Hyperglycemia, Dehydration Disposition: DC-01 TO HOME OR SELFCARE Is pt being admited?: No Does the pt Need Aspirin: No Condition: Fair Instructions: Influenza (ED) Prescriptions: ALBUTEROL Inhaler [ProAir HFA Inhaler] 2 puff IH QID PRN #1 inhalation PRN Reason: Shortness Of Breath Benzonatate [Tessalon Perle] 100 mg PO TID #12 capsule Ibuprofen [Motrin] 600 mg PO Q8H PRN #20 tablet PRN Reason: Pain Ondansetron [Zofran Odt] 4 mg PO Q8HR #10 tab.rapdis traMADol [Ultram] 50 mg PO Q6HR PRN #15 tablet PRN Reason: Pain Referrals: LUDIVINA WINSTON JR, MD [Staff Physician] - 3-5 Days
--- NOTE | 2017-06-28 07:13 | XRay Report ---
FINAL REPORT EXAM: XR CHEST ROUTINE 2V HISTORY: cough TECHNIQUE: PA and lateral chest radiographs PRIORS: None. FINDINGS: No mediastinal shift. Mild cardiomegaly. Left chest pacemaker. Aortic calcification. No pneumothorax, effusion, or focal pulmonary opacity. No acute skeletal finding. IMPRESSION: No focal pulmonary opacity.
[2017-06-28] MEDS ORDERED: ZOFRAN ONE (08:57)
[2017-06-28] MEDS ORDERED: TORADOL ONE (08:57)
[2017-06-28] MEDS ORDERED: NACL 0.9% 500 ML 500 ML ONE ×2 (08:58→10:03)
[2017-06-28] MEDS ORDERED: MORPHINE ONE (08:59)
[2017-06-28 11:50] VITALS: BP 161/88
== END 2017-06-28 12:58 | disposition home or self-care (01) ==
LOC: ED 22:37
DX: J11.1 Influenza due to unidentified influenza virus with other respiratory manifestations (principal); I11.0 Hypertensive heart disease with heart failure; I50.9 Heart failure, unspecified; I25.2 Old myocardial infarction; J44.9 Chronic obstructive pulmonary disease, unspecified; E11.65 Type 2 diabetes mellitus with hyperglycemia; Z79.82 Long term (current) use of aspirin
CPT/HCPCS: 36415; 71046; 80048; 82962; 84484; 85025; 93005; 93010; 96374; 96375; 99284; J1885; J2270; J2405; J7040; J1815

== ENCOUNTER 2017-07-25 06:03 | Emergency (ER) | payer MEDICAID ==
[2017-07-25] MEDS ORDERED: CATAPRES PO ONE (08:07)
[2017-07-25 09:28] LABS: Basophils # (Auto) 0.1 K/mm3 (0.0-0.1); Basophils % (Auto) 1.1 % (0.0-1.8); Eosinophils % (Auto) 0.3 % (0.0-4.3); Lymphocytes # (Auto) 1.4 K/mm3 (1.2-5.4); Lymphocytes % (Auto) 16.6 % (13.4-35.0); Mean Corpuscular HGB Conc 30 % (30-34); Mean Corpuscular Hemoglobin 29 pg (28-32); Mean Corpuscular Volume 97 fl (79-97); Monocytes # (Auto) 0.6 K/mm3 (0.0-0.8); Monocytes % (Auto) 6.8 % (0.0-7.3); Platelet Count 254 K/mm3 (140-440)
--- NOTE | 2017-07-25 09:28 | XRay Report ---
CHEST TWO VIEWS: 07/25/17 06:03:00 CLINICAL: Chest pain. COMPARISON: 06/28/17 FINDINGS: Stable cardiomegaly with an AICD lead in heart. Redistribution of pulmonary blood flow to the upper lobes. The lungs are normally expanded and clear. No airspace disease or pleural effusion.The bones and soft tissues are unremarkable. IMPRESSION: Cardiomegaly and pulmonary venous hypertension. No pulmonary edema.
[2017-07-25 09:32] LABS: Hemoglobin 9.3 gm/dl (10.1-14.3); Red Cell Distribution Width 20.4 % (13.2-15.2)
[2017-07-25 09:40] LABS: Calcium 8.5 mg/dL (8.4-10.2)
--- NOTE | 2017-07-25 17:38 | Emergency Department Report ---
ED Chest Pain HPI - General Chief Complaint: Chest Pain Stated Complaint: PALPITATIONS Time Seen by Provider: 07/25/17 16:26 Source: patient Mode of arrival: Ambulatory Limitations: No Limitations - History of Present Illness Initial Comments: Chest pain, nausea, vomiting, diarrhea for three days. Has had this in the past , was diagnosed with "acute angina" last year. -: Gradual Onset: during rest Pain Location: left chest Pain Radiation: RUE, LUE, jaw/teeth (right side) Severity: severe (says its a "10") Severity scale (0 -10): 10 Quality: tightness, heaviness, sharp Consistency: constant Improves With: nothing Worsens With: exertion Context: other (cough for three days) re: nausea, vomting (several) Other Symptoms: cough, fever (101 at home) Treatments Prior to Arrival: other (tylenol with no relief) - Related Data Home Medications Medication Instructions Recorded Confirmed Last Taken Rivaroxaban [Xarelto] 20 mg PO QDAY 08/15/16 08/30/16 Unknown risperiDONE [RisperiDONE] 1 mg PO DAILY 08/15/16 08/30/16 Unknown traMADol [Ultram 50 MG tab] 50 mg PO Q6H PRN 08/15/16 08/30/16 Unknown Previous Rx's Medication Instructions Recorded Last Taken Type Aspirin [Aspirin BABY CHEW TAB] 81 mg PO QDAY #30 tab.chew 08/15/16 Unknown Rx AtorvaSTATin [Lipitor] 40 mg PO QHS #30 tablet 08/15/16 Unknown Rx ISOSORBIDE MONOnitrate [Imdur ER] 30 mg PO QDAY #30 tablet 08/15/16 Unknown Rx Carvedilol [Coreg] 25 mg PO BID #60 tablet 09/02/16 Unknown Rx Furosemide [Lasix TAB] 40 mg PO QDAY #30 tablet 09/02/16 Unknown Rx Lisinopril [Zestril TAB] 20 mg PO BID #60 tablet 09/02/16 Unknown Rx Potassium Chloride [K-Dur] 10 meq PO QDAY #30 tablet 09/02/16 Unknown Rx ALBUTEROL Inhaler [ProAir HFA 2 puff IH QID PRN #1 inhalation 06/28/17 Unknown Rx Inhaler] Benzonatate [Tessalon Perle] 100 mg PO TID #12 capsule 06/28/17 Unknown Rx Ibuprofen [Motrin] 600 mg PO Q8H PRN #20 tablet 06/28/17 Unknown Rx Ondansetron [Zofran Odt] 4 mg PO Q8HR #10 tab.rapdis 06/28/17 Unknown Rx traMADol [Ultram] 50 mg PO Q6HR PRN #15 tablet 06/28/17 Unknown Rx Allergies Allergy/AdvReac Type Severity Reaction Status Date / Time codeine Allergy Hives Verified 06/15/14 05:41 Heart Score - HEART Score History: Slightly suspicious EKG: Normal Age: 45-65 Risk factors: 1-2 risk factors Troponin: < normal limit HEART Score: 2 ED Review of Systems ROS: Stated complaint: PALPITATIONS Other details as noted in HPI Comment: All other systems reviewed and negative Constitutional: see HPI, chills, fever Eyes: as per HPI ENT: as per HPI Respiratory: see HPI Cardiovascular: as per HPI Endocrine: see HPI Genitourinary: as per HPI Musculoskeletal: as per HPI Skin: as per HPI Neurological: as per HPI Psychiatric: as per HPI Hematological/Lymphatic: as per HPI ED Past Medical Hx - Past Medical History Previous Medical History?: Yes Hx Hypertension: Yes Hx Heart Attack/AMI: Yes Hx Congestive Heart Failure: Yes Hx Diabetes: Yes Hx Deep Vein Thrombosis: No Hx Seizures: No Hx Asthma: Yes Hx COPD: Yes Hx Dementia: Yes Additional medical history: CAD - Surgical History Past Surgical History?: Yes Hx Coronary Stent: Yes ((8) heart stents) Hx Pacemaker: No Hx Internal Defibrillator: No Additional Surgical History: HYSTERECTOMY - Social History Smoking Status: Never Smoker Substance Use Type: None - Medications Home Medications: Home Medications Medication Instructions Recorded Confirmed Last Taken Type Aspirin [Aspirin BABY CHEW TAB] 81 mg PO QDAY #30 tab.chew 08/15/16 08/30/16 Unknown Rx AtorvaSTATin [Lipitor] 40 mg PO QHS #30 tablet 08/15/16 08/30/16 Unknown Rx ISOSORBIDE MONOnitrate [Imdur ER] 30 mg PO QDAY #30 tablet 08/15/16 08/30/16 Unknown Rx Rivaroxaban [Xarelto] 20 mg PO QDAY 08/15/16 08/30/16 Unknown History risperiDONE [RisperiDONE] 1 mg PO DAILY 08/15/16 08/30/16 Unknown History traMADol [Ultram 50 MG tab] 50 mg PO Q6H PRN 08/15/16 08/30/16 Unknown History Carvedilol [Coreg] 25 mg PO BID #60 tablet 09/02/16 Unknown Rx Furosemide [Lasix TAB] 40 mg PO QDAY #30 tablet 09/02/16 Unknown Rx Lisinopril [Zestril TAB] 20 mg PO BID #60 tablet 09/02/16 Unknown Rx Potassium Chloride [K-Dur] 10 meq PO QDAY #30 tablet 09/02/16 Unknown Rx ALBUTEROL Inhaler [ProAir HFA 2 puff IH QID PRN #1 inhalation 06/28/17 Unknown Rx Inhaler] Benzonatate [Tessalon Perle] 100 mg PO TID #12 capsule 06/28/17 Unknown Rx Ibuprofen [Motrin] 600 mg PO Q8H PRN #20 tablet 06/28/17 Unknown Rx Ondansetron [Zofran Odt] 4 mg PO Q8HR #10 tab.rapdis 06/28/17 Unknown Rx traMADol [Ultram] 50 mg PO Q6HR PRN #15 tablet 06/28/17 Unknown Rx ED Physical Exam - General Limitations: No Limitations General appearance: alert, anxious - Head Head exam: Present: atraumatic - Eye Eye exam: Present: normal appearance, PERRL, EOMI - ENT ENT exam: Present: normal exam, normal orophraynx - Neck Neck exam: Present: normal inspection - Respiratory Respiratory exam: Present: normal lung sounds bilaterally. Absent: respiratory distress, wheezes, rales, rhonchi - Cardiovascular Cardiovascular Exam: Present: regular rate, normal rhythm, normal heart sounds - GI/Abdominal GI/Abdominal exam: Present: soft, tenderness (generalized), normal bowel sounds - Rectal Rectal exam: Present: deferred - Extremities Exam Extremities exam: Present: normal inspection, full ROM - Back Exam Back exam: Present: normal inspection - Neurological Exam Neurological exam: Present: alert, oriented X3, CN II-XII intact - Psychiatric Psychiatric exam: Present: flat affect - Skin Skin exam: Present: warm, dry, intact ED Course Vital Signs 07/25/17 07/25/17 07/25/17 08:00 13:00 16:49 Temperature 97.3 F L Pulse Rate 108 H Respiratory 20 16 Rate Blood Pressure 180/112 117/79 Blood Pressure [Left] O2 Sat by Pulse 100 100 Oximetry 07/25/17 07/25/17 07/25/17 17:24 17:30 17:46 Temperature Pulse Rate 90 90 87 Respiratory 20 20 23 Rate Blood Pressure 156/96 156/96 Blood Pressure [Left] O2 Sat by Pulse 100 99 Oximetry 07/25/17 07/25/17 07/25/17 17:47 18:00 18:16 Temperature 98 F Pulse Rate 89 94 H 88 Respiratory 16 18 22 Rate Blood Pressure 117/79 117/79 Blood Pressure 156/96 [Left] O2 Sat by Pulse 99 99 91 Oximetry 07/25/17 07/25/17 07/25/17 18:30 18:46 19:00 Temperature Pulse Rate 94 H 90 89 Respiratory 17 16 16 Rate Blood Pressure 117/79 117/79 117/79 Blood Pressure [Left] O2 Sat by Pulse 98 99 98 Oximetry 07/25/17 07/25/17 19:16 19:30 Temperature Pulse Rate 87 90 Respiratory 18 17 Rate Blood Pressure 117/79 117/79 Blood Pressure [Left] O2 Sat by Pulse 98 100 Oximetry - Reevaluation(s) Reevaluation #1: 07/25/17 21:22 Her cardiac enzymes are WNL, she has a frequent history of these same complaints. I see no evidence of ACS today. Her FSBS is high so we will give insulin and discharge her home. YANICK score - Yanick Score Age > 65: (0) No Aspirin use within the Past 7 Days: (1) Yes 3 or more CAD Risk Factors: (1) Yes 2 or more Angina events in past 24 hrs: (0) No Known CAD with more than 50% Stenosis: (1) Yes Elevated Cardiac Markers: (0) No ST Deviation Greater than 0.5mm: (0) No YANICK Score: 3 ED Medical Decision Making - Lab Data Result diagrams: 07/25/17 08:42 07/25/17 08:42 Critical care attestation.: If time is entered above; I have spent that time in minutes in the direct care of this critically ill patient, excluding procedure time. ED Disposition Clinical Impression: Chest wall pain Diabetes mellitus Qualifiers: Diabetes mellitus type: type 2 Diabetes mellitus complication status: without complication Diabetes mellitus group home insulin use: unspecified group home insulin use status Qualified Code(s): E11.9 - Type 2 diabetes mellitus without complications Chronic pain Qualifiers: Chronic pain type: chronic pain syndrome Qualified Code(s): G89.4 - Chronic pain syndrome Disposition: - TO HOME OR SELFCARE Is pt being admited?: No Does the pt Need Aspirin: No Condition: Stable Instructions: Diabetes Mellitus Type 2 in Adults (ED), Chest Pain (ED) Additional Instructions: Follow up with your doctor Referrals: PRIMARY CARE, [Primary Care Provider] - 3-5 Days
[2017-07-25] MEDS ORDERED: MORPHINE IV ONE (17:43)
[2017-07-25] MEDS ORDERED: ZOFRAN IV ONE (17:44)
[2017-07-25] MEDS ORDERED: ZOFRAN ODT ONE (17:55)
[2017-07-25] MEDS ORDERED: ZOFRAN ODT PO ONE ×2 (18:03→18:05)
[2017-07-25 18:19] LABS: Lipase 33 units/L (13-60)
[2017-07-25 21:47] VITALS: BP 155/98
== END 2017-07-25 22:03 | disposition home or self-care (01) ==
LOC: ED 06:03
DX: R07.89 Other chest pain (principal); E11.9 Type 2 diabetes mellitus without complications; G89.4 Chronic pain syndrome; I10 Essential (primary) hypertension; I25.2 Old myocardial infarction; I50.9 Heart failure, unspecified; J45.909 Unspecified asthma, uncomplicated; J44.9 Chronic obstructive pulmonary disease, unspecified; Z95.818 Presence of other cardiac implants and grafts; Z90.710 Acquired absence of both cervix and uterus; Z79.82 Long term (current) use of aspirin; Z88.5 Allergy status to narcotic agent
CPT/HCPCS: 36415; 71046; 80048; 82150; 82962; 83690; 84484; 85025; 93005; 93010; 96372; 96374; 99284; J2270; J1815; Q0162

== ENCOUNTER 2017-08-25 00:15 | Emergency (ER) | payer MEDICAID ==
[2017-08-25 02:30] LABS: Basophils % (Auto) 0.7 % (0.0-1.8); Calcium 8.4 mg/dL (8.4-10.2); Eosinophils # (Auto) 0.1 K/mm3 (0.0-0.4); Eosinophils % (Auto) 1.1 % (0.0-4.3); Hematocrit 27.7 % (30.3-42.9); Hemoglobin 8.8 gm/dl (10.1-14.3); Lymphocytes # (Auto) 1.1 K/mm3 (1.2-5.4); Mean Corpuscular HGB Conc 32 % (30-34); Mean Corpuscular Hemoglobin 28 pg (28-32); Mean Corpuscular Volume 87 fl (79-97); Monocytes # (Auto) 0.5 K/mm3 (0.0-0.8); Platelet Count 252 K/mm3 (140-440); Red Cell Distribution Width 21.3 % (13.2-15.2)
[2017-08-25] MEDS ORDERED: ANTIVERT PO ONE (03:39)
[2017-08-25] MEDS ORDERED: MORPHINE IV ONE (03:39)
[2017-08-25] MEDS ORDERED: ZOFRAN IV ONE (03:39)
--- NOTE | 2017-08-25 03:46 | Emergency Department Report ---
HPI - General Chief Complaint: Nausea/Vomiting/Diarrhea Time Seen by Provider: 08/25/17 03:26 - HPI HPI: Room 7 The patient is a 57-year-old female presented with a chief complaint of nausea and vomiting. The patient was discharged from the hospital yesterday after being admitted by myself for chest pain. Patient states shortly of motion began not feeling well"stated she develop headache, dizziness nausea and vomiting. Patient states she was "trembling" one point. Patient complains of pain in her right upper extremity since yesterday. Patient denies abdominal pain or fever. The patient gives her pain a score of 8/10. The patient states she's vomited 4 times Location: [See above] Duration: One day Quality: [See above] Severity: 8/10 Modifying factors: [see above] Context: [see above] Mode of transportation: [not driving] ED Past Medical Hx - Past Medical History Hx Hypertension: Yes Hx Heart Attack/AMI: Yes Hx Congestive Heart Failure: Yes Hx Diabetes: Yes Hx Asthma: Yes Hx COPD: Yes Hx Dementia: Yes Additional medical history: CAD - Surgical History Hx Coronary Stent: Yes ((8) heart stents) Additional Surgical History: HYSTERECTOMY - Family History Family history: no significant - Social History Smoking Status: Never Smoker Substance Use Type: None - Medications Home Medications: Home Medications Medication Instructions Recorded Confirmed Last Taken Type AtorvaSTATin [Lipitor] 40 mg PO QHS #30 tablet 08/15/16 08/25/17 Unknown Rx ISOSORBIDE MONOnitrate [Imdur ER] 30 mg PO QDAY #30 tablet 08/15/16 08/25/17 Unknown Rx Rivaroxaban [Xarelto] 20 mg PO QDAY 08/15/16 08/25/17 Unknown History risperiDONE [RisperiDONE] 1 mg PO DAILY 08/15/16 08/25/17 Unknown History traMADol [Ultram 50 MG tab] 50 mg PO Q6H PRN 08/15/16 08/25/17 Unknown History Carvedilol [Coreg] 25 mg PO BID #60 tablet 09/02/16 08/25/17 Unknown Rx Furosemide [Lasix TAB] 40 mg PO QDAY #30 tablet 09/02/16 08/25/17 Unknown Rx Potassium Chloride [K-Dur] 10 meq PO QDAY #30 tablet 09/02/16 08/25/17 Unknown Rx ALBUTEROL Inhaler [ProAir HFA 2 puff IH QID PRN #1 inhalation 06/28/17 08/25/17 Unknown Rx Inhaler] Benzonatate [Tessalon Perle] 100 mg PO TID #12 capsule 06/28/17 08/25/17 Unknown Rx Ibuprofen [Motrin] 600 mg PO Q8H PRN #20 tablet 06/28/17 08/25/17 Unknown Rx Ondansetron [Zofran Odt] 4 mg PO Q8HR #10 tab.rapdis 06/28/17 08/25/17 Unknown Rx HYDROcodone/APAP 5-325 [[place] 1 - 2 each PO Q6HR PRN #14 tablet 08/25/17 Unknown Rx 5/325] Lisinopril [Zestril TAB] 20 mg PO DAILY 08/25/17 08/25/17 Unknown History Meclizine [Antivert] 25 mg PO TID PRN #20 tablet 08/25/17 Unknown Rx Ondansetron [Zofran ODT TAB] 8 mg PO Q8HR #20 tab.rapdis 08/25/17 Unknown Rx Promethazine [Phenergan] 25 mg IA Q6HR PRN #5 supp.rect 08/25/17 Unknown Rx ED Review of Systems ROS: Stated complaint: FLU LIKE SX Other details as noted in HPI Constitutional: denies: fever Cardiovascular: denies: chest pain Gastrointestinal: nausea, vomiting, diarrhea. denies: abdominal pain Musculoskeletal: myalgia Neurological: headache, vertigo Physical Exam - Physical Exam Vital Signs: Vital Signs 08/25/17 01:52 Temperature 98.6 F Pulse Rate 77 Respiratory 18 Rate Blood Pressure 150/87 O2 Sat by Pulse 97 Oximetry Physical Exam: GENERAL: The patient is well-developed well-nourished female lying on stretcher not appearing to be in acute distress. [] HEENT: Normocephalic. Atraumatic. Extraocular motions are intact. Patient has moist mucous membranes. NECK: Supple. Trachea midline CHEST/LUNGS: Clear to auscultation. There is no respiratory distress noted. HEART/CARDIOVASCULAR: Regular. There is no tachycardia. There is no gallop rub or murmur. ABDOMEN: Abdomen is soft, with mild discomfort to palpation in the right upper quadrant, right lower quadrant and suprapubic region. Patient has normal bowel sounds. There is no abdominal distention. SKIN: There is no rash. There is no edema. There is no diaphoresis. NEURO: The patient is awake, alert, and oriented. The patient is cooperative. The patient has no focal neurologic deficits. The patient has normal speech. Cranial nerves II through XII grossly intact, no drift MUSCULOSKELETAL:There is no evidence of acute injury. ED Course Vital Signs 08/25/17 01:52 Temperature 98.6 F Pulse Rate 77 Respiratory 18 Rate Blood Pressure 150/87 O2 Sat by Pulse 97 Oximetry ED Medical Decision Making - Lab Data Result diagrams: 08/25/17 02:04 08/25/17 02:04 Laboratory Tests 08/25/17 08/25/17 02:04 02:04 WBC 6.5 RBC 3.20 L Hgb 8.8 L Hct 27.7 L MCV 87 MCH 28 MCHC 32 RDW 21.3 H Plt Count 252 Lymph % (Auto) 17.0 [place] % (Auto) 8.0 H Eos % (Auto) 1.1 Baso % (Auto) 0.7 Lymph # 1.1 L [place] # 0.5 Eos # 0.1 Baso # 0.0 Seg Neutrophils % 73.2 H Seg Neutrophils # 4.8 Sodium 131 L Potassium 5.0 Chloride 97.0 L Carbon Dioxide 19 L Anion Gap 20 BUN 27 H Creatinine 1.5 H Estimated GFR 43 BUN/Creatinine Ratio 18 Glucose 146 H Calcium 8.4 - Radiology Data Radiology results: report reviewed (CT head, CT abdomen and pelvis), image reviewed (CT head, CT abdomen and pelvis) FINAL REPORT EXAM: CT HEAD/BRAIN WO CON HISTORY: headache, dizziness, nausea vomiting TECHNIQUE: Routine axial imaging was obtained of the brain without IV contrast. Comparison is made to the study 08/23/2014. FINDINGS: There is no evidence of acute stroke or hemorrhage. The ventricular system is appropriate in size and is symmetric. There is diminished attenuation of the periventricular white matter bilaterally compatible with chronic microvascular disease changes. The basal cisterns appear normal. The visualized sinuses are clear. The mastoid air cells are well pneumatized. IMPRESSION: No evidence of acute stroke or hemorrhage. Diminished attenuation of the periventricular white matter compatible with chronic microvascular disease changes. Transcribed By: RB Dictated By: NAMRATA ROA MD Electronically Authenticated By: NAMRATA ROA MD Signed Date/Time: 08/25/17430 DD/ 0 TD/TT: 08/25/17430 FINAL REPORT EXAM: CT ABDOMEN PELVIS WO CON HISTORY: right-sided abdominal pain, nausea vomiting TECHNIQUE: Routine axial imaging was obtained of the abdomen and pelvis without oral or IV contrast. Sagittal and coronal reconstructions were reviewed. FINDINGS: The lung bases are clear. The heart is moderately enlarged. There is a small pericardial effusion. The gallbladder is contracted. The liver, pancreas, spleen, and adrenal glands appear normal. The kidneys show no evidence of stones or hydronephrosis. There is a small amount of fluid along the anterior margin of the liver. This is compatible with localized ascites. There is extensive calcification of the abdominal aorta and pelvic vessels. The bowel loops are normal in caliber. There is a large amount retained feces in the colon. There is no evidence of adenopathy. The uterus has been removed. The bladder appears normal. The appendix is not seen. The surrounding bones and soft tissues otherwise reveal edematous changes of the subcutaneous fat around the abdomen pelvis suggesting anasarca. IMPRESSION: No acute process in the abdomen and pelvis. Very mild localized ascites along the anterior margin of the liver. Large amount retained feces in the colon. Hysterectomy. The appendix is not identified also. Subcutaneous edema around the abdomen and pelvis suggesting underlying anasarca. Transcribed By: RB Dictated By: NAMRATA ROA MD Electronically Authenticated By: NAMRATA ROA MD Signed Date/Time: 08/25/17437 DD/ 7 TD/TT: 08/25/17437 - Differential Diagnosis vertigo, ICH, symptomatic cholelithiasis, appendicitis, gastroenteritis Critical care attestation.: If time is entered above; I have spent that time in minutes in the direct care of this critically ill patient, excluding procedure time. ED Disposition Clinical Impression: Nausea & vomiting, Dizziness Disposition: DC-01 TO HOME OR SELFCARE Is pt being admited?: No Does the pt Need Aspirin: No Condition: Stable Instructions: Vertigo (ED) Additional Instructions: Return to the emergency department immediately should you develop worsening symptoms, fever, inability to tolerate food or liquid or any other concerns. Prescriptions: HYDROcodone/APAP 5-325 [[place] 5/325] 1 - 2 each PO Q6HR PRN #14 tablet PRN Reason: Pain Meclizine [Antivert] 25 mg PO TID PRN #20 tablet PRN Reason: Vertigo Ondansetron [Zofran ODT TAB] 8 mg PO Q8HR #20 tab.rapdis Promethazine [Phenergan] 25 mg IA Q6HR PRN #5 supp.rect PRN Reason: Vomiting Referrals: YESSENIA GARCIA MD [Primary Care Provider] - 3-5 Days Time of Disposition: 04:54
--- NOTE | 2017-08-25 04:35 | Cat Scan Report ---
FINAL REPORT EXAM: CT HEAD/BRAIN WO CON HISTORY: headache, dizziness, nausea vomiting TECHNIQUE: Routine axial imaging was obtained of the brain without IV contrast. Comparison is made to the study 08/23/2014. FINDINGS: There is no evidence of acute stroke or hemorrhage. The ventricular system is appropriate in size and is symmetric. There is diminished attenuation of the periventricular white matter bilaterally compatible with chronic microvascular disease changes. The basal cisterns appear normal. The visualized sinuses are clear. The mastoid air cells are well pneumatized. IMPRESSION: No evidence of acute stroke or hemorrhage. Diminished attenuation of the periventricular white matter compatible with chronic microvascular disease changes.
--- NOTE | 2017-08-25 04:46 | Cat Scan Report ---
FINAL REPORT EXAM: CT ABDOMEN PELVIS WO CON HISTORY: right-sided abdominal pain, nausea vomiting TECHNIQUE: Routine axial imaging was obtained of the abdomen and pelvis without oral or IV contrast. Sagittal and coronal reconstructions were reviewed. FINDINGS: The lung bases are clear. The heart is moderately enlarged. There is a small pericardial effusion. The gallbladder is contracted. The liver, pancreas, spleen, and adrenal glands appear normal. The kidneys show no evidence of stones or hydronephrosis. There is a small amount of fluid along the anterior margin of the liver. This is compatible with localized ascites. There is extensive calcification of the abdominal aorta and pelvic vessels. The bowel loops are normal in caliber. There is a large amount retained feces in the colon. There is no evidence of adenopathy. The uterus has been removed. The bladder appears normal. The appendix is not seen. The surrounding bones and soft tissues otherwise reveal edematous changes of the subcutaneous fat around the abdomen pelvis suggesting anasarca. IMPRESSION: No acute process in the abdomen and pelvis. Very mild localized ascites along the anterior margin of the liver. Large amount retained feces in the colon. Hysterectomy. The appendix is not identified also. Subcutaneous edema around the abdomen and pelvis suggesting underlying anasarca.
[2017-08-25] MEDS ORDERED: ZOFRAN IM ONE (05:11)
[2017-08-25] MEDS ORDERED: MORPHINE IM ONE (05:12)
[2017-08-25 05:53] VITALS: BP 165/90
== END 2017-08-25 06:23 | disposition home or self-care (01) ==
LOC: ED 00:15
DX: R11.2 Nausea with vomiting, unspecified (principal); R42 Dizziness and giddiness; M79.601 Pain in right arm; I11.0 Hypertensive heart disease with heart failure; I50.9 Heart failure, unspecified; E11.9 Type 2 diabetes mellitus without complications; I25.2 Old myocardial infarction; J44.9 Chronic obstructive pulmonary disease, unspecified
CPT/HCPCS: 36415; 70450; 74176; 80048; 85025; 96372; 99284; J2270; J2405

== ENCOUNTER 2017-09-18 06:36 | Emergency (ER) | payer MEDICAID ==
[2017-09-18] MEDS ORDERED: ASPIRIN PO ONE (06:43)
[2017-09-18 07:44] LABS: Basophils # (Auto) 0.1 K/mm3 (0.0-0.1); Basophils % (Auto) 1.2 % (0.0-1.8); Eosinophils # (Auto) 0.2 K/mm3 (0.0-0.4); Hematocrit 31.2 % (30.3-42.9); Lymphocytes # (Auto) 1.6 K/mm3 (1.2-5.4); Lymphocytes % (Auto) 21.1 % (13.4-35.0); Mean Corpuscular HGB Conc 32 % (30-34); Mean Corpuscular Hemoglobin 28 pg (28-32); Mean Corpuscular Volume 87 fl (79-97); Monocytes # (Auto) 0.6 K/mm3 (0.0-0.8); Monocytes % (Auto) 7.9 % (0.0-7.3); Platelet Count 162 K/mm3 (140-440); Red Blood Count 3.59 M/mm3 (3.65-5.03)
[2017-09-18 07:45] LABS: Red Cell Distribution Width 22.2 % (13.2-15.2)
[2017-09-18 07:55] LABS: BUN/Creatinine Ratio 22; Blood Urea Nitrogen 20 mg/dL (7-17); Calcium 8.9 mg/dL (8.4-10.2); Hemolysis Index 213
--- NOTE | 2017-09-18 14:31 | Emergency Department Report ---
ED Chest Pain HPI - General Chief Complaint: Chest Pain Stated Complaint: CP Time Seen by Provider: 09/18/17 14:01 Source: patient, family Mode of arrival: Ambulatory Limitations: No Limitations - History of Present Illness Initial Comments: Ms. Espitia is 57 yo female with hx of Bipolar affective disorder, CAD and PE on Xarelto. She has had right sided chest pain radiating to RUE. no dyspnea + nonproductive cough no leg pain no recent travel. She states she has 8 cardiac stents. No hx of [place]. MD Complaint: chest pain -: Gradual, days(s) (1) Onset: during rest Pain Location: substernal, right chest Pain Radiation: RUE Severity: moderate Quality: aching, sharp Consistency: constant Improves With: nothing Worsens With: nothing - Related Data Home Medications Medication Instructions Recorded Confirmed Last Taken Rivaroxaban [Xarelto] 20 mg PO QDAY 08/15/16 08/25/17 Unknown risperiDONE [RisperiDONE] 1 mg PO DAILY 08/15/16 08/25/17 Unknown traMADol [Ultram 50 MG tab] 50 mg PO Q6H PRN 08/15/16 08/25/17 Unknown Lisinopril [Zestril TAB] 20 mg PO DAILY 08/25/17 08/25/17 Unknown Previous Rx's Medication Instructions Recorded Last Taken Type AtorvaSTATin [Lipitor] 40 mg PO QHS #30 tablet 08/15/16 Unknown Rx ISOSORBIDE MONOnitrate [Imdur ER] 30 mg PO QDAY #30 tablet 08/15/16 Unknown Rx Carvedilol [Coreg] 25 mg PO BID #60 tablet 09/02/16 Unknown Rx Furosemide [Lasix TAB] 40 mg PO QDAY #30 tablet 09/02/16 Unknown Rx Potassium Chloride [K-Dur] 10 meq PO QDAY #30 tablet 09/02/16 Unknown Rx ALBUTEROL Inhaler [ProAir HFA 2 puff IH QID PRN #1 inhalation 06/28/17 Unknown Rx Inhaler] Benzonatate [Tessalon Perle] 100 mg PO TID #12 capsule 06/28/17 Unknown Rx Ibuprofen [Motrin] 600 mg PO Q8H PRN #20 tablet 06/28/17 Unknown Rx Ondansetron [Zofran Odt] 4 mg PO Q8HR #10 tab.rapdis 06/28/17 Unknown Rx HYDROcodone/APAP 5-325 [[place] 1 - 2 each PO Q6HR PRN #14 tablet 08/25/17 Unknown Rx 5/325] Meclizine [Antivert] 25 mg PO TID PRN #20 tablet 08/25/17 Unknown Rx Ondansetron [Zofran ODT TAB] 8 mg PO Q8HR #20 tab.rapdis 08/25/17 Unknown Rx Promethazine [Phenergan] 25 mg IA Q6HR PRN #5 supp.rect 08/25/17 Unknown Rx Allergies Allergy/AdvReac Type Severity Reaction Status Date / Time codeine Allergy Hives Verified 06/15/14 05:41 Heart Score - HEART Score History: Slightly suspicious EKG: Non-specific Age: 45-65 Risk factors: 1-2 risk factors Troponin: < normal limit HEART Score: 3 ED Review of Systems ROS: Stated complaint: CP Other details as noted in HPI Comment: All other systems reviewed and negative Constitutional: denies: chills, fever Eyes: denies: eye pain ENT: denies: throat pain Respiratory: denies: cough, shortness of breath, wheezing Cardiovascular: chest pain. denies: palpitations Endocrine: no symptoms reported Gastrointestinal: denies: abdominal pain, nausea, diarrhea Musculoskeletal: denies: back pain, joint swelling, arthralgia Neurological: denies: headache, weakness Hematological/Lymphatic: denies: easy bleeding, easy bruising ED Past Medical Hx - Past Medical History Previous Medical History?: Yes Hx Hypertension: Yes Hx Heart Attack/AMI: Yes Hx Congestive Heart Failure: Yes Hx Diabetes: Yes Hx Deep Vein Thrombosis: No Hx Seizures: No Hx Asthma: Yes Hx COPD: Yes Hx Dementia: Yes Additional medical history: CAD - Surgical History Past Surgical History?: Yes Hx Coronary Stent: Yes ((8) heart stents) Hx Pacemaker: No Hx Internal Defibrillator: No Additional Surgical History: HYSTERECTOMY - Social History Smoking Status: Never Smoker Substance Use Type: None - Medications Home Medications: Home Medications Medication Instructions Recorded Confirmed Last Taken Type AtorvaSTATin [Lipitor] 40 mg PO QHS #30 tablet 08/15/16 08/25/17 Unknown Rx ISOSORBIDE MONOnitrate [Imdur ER] 30 mg PO QDAY #30 tablet 08/15/16 08/25/17 Unknown Rx Rivaroxaban [Xarelto] 20 mg PO QDAY 08/15/16 08/25/17 Unknown History risperiDONE [RisperiDONE] 1 mg PO DAILY 08/15/16 08/25/17 Unknown History traMADol [Ultram 50 MG tab] 50 mg PO Q6H PRN 08/15/16 08/25/17 Unknown History Carvedilol [Coreg] 25 mg PO BID #60 tablet 09/02/16 08/25/17 Unknown Rx Furosemide [Lasix TAB] 40 mg PO QDAY #30 tablet 09/02/16 08/25/17 Unknown Rx Potassium Chloride [K-Dur] 10 meq PO QDAY #30 tablet 09/02/16 08/25/17 Unknown Rx ALBUTEROL Inhaler [ProAir HFA 2 puff IH QID PRN #1 inhalation 06/28/17 08/25/17 Unknown Rx Inhaler] Benzonatate [Tessalon Perle] 100 mg PO TID #12 capsule 06/28/17 08/25/17 Unknown Rx Ibuprofen [Motrin] 600 mg PO Q8H PRN #20 tablet 06/28/17 08/25/17 Unknown Rx Ondansetron [Zofran Odt] 4 mg PO Q8HR #10 tab.rapdis 06/28/17 08/25/17 Unknown Rx HYDROcodone/APAP 5-325 [[place] 1 - 2 each PO Q6HR PRN #14 tablet 08/25/17 Unknown Rx 5/325] Lisinopril [Zestril TAB] 20 mg PO DAILY 08/25/17 08/25/17 Unknown History Meclizine [Antivert] 25 mg PO TID PRN #20 tablet 08/25/17 Unknown Rx Ondansetron [Zofran ODT TAB] 8 mg PO Q8HR #20 tab.rapdis 08/25/17 Unknown Rx Promethazine [Phenergan] 25 mg IA Q6HR PRN #5 supp.rect 08/25/17 Unknown Rx ED Physical Exam - General Limitations: No Limitations General appearance: alert, in no apparent distress - Head Head exam: Present: atraumatic, normocephalic - Eye Eye exam: Present: normal appearance - ENT ENT exam: Present: mucous membranes moist - Neck Neck exam: Present: normal inspection. Absent: tenderness, meningismus - Respiratory Respiratory exam: Present: normal lung sounds bilaterally. Absent: respiratory distress, wheezes, rales, rhonchi - Cardiovascular Cardiovascular Exam: Present: regular rate, normal rhythm, normal heart sounds. Absent: systolic murmur, diastolic murmur, rubs, gallop - GI/Abdominal GI/Abdominal exam: Present: soft, normal bowel sounds. Absent: distended, tenderness, guarding, rebound - Extremities Exam Extremities exam: Present: normal inspection - Back Exam Back exam: Present: normal inspection - Neurological Exam Neurological exam: Present: alert, oriented X3 - Psychiatric Psychiatric exam: Present: normal affect, normal mood - Skin Skin exam: Present: warm, dry, intact, normal color. Absent: rash - Other Other exam information: Right upper extremity: No edema no tenderness full range of motion intact strength median ulnar radial nerves distally intact 2+ radial pulse ED Course Vital Signs 09/18/17 09/18/17 06:42 06:55 Temperature 98 F Pulse Rate 84 Respiratory 18 Rate Blood Pressure 148/87 O2 Sat by Pulse 100 Oximetry YANICK score - Yanick Score Age > 65: (0) No Aspirin use within the Past 7 Days: (1) Yes 3 or more CAD Risk Factors: (1) Yes 2 or more Angina events in past 24 hrs: (0) No Known CAD with more than 50% Stenosis: (1) Yes Elevated Cardiac Markers: (0) No ST Deviation Greater than 0.5mm: (0) No YANICK Score: 3 ED Medical Decision Making - Lab Data Result diagrams: 09/18/17 07:15 09/18/17 07:15 Laboratory Results - last 24 hr 09/18/17 09/18/17 09/18/17 07:15 07:15 09:22 WBC 7.7 RBC 3.59 L Hgb 10.0 L Hct 31.2 MCV 87 MCH 28 MCHC 32 RDW 22.2 H Plt Count 162 Lymph % (Auto) 21.1 [place] % (Auto) 7.9 H Eos % (Auto) 3.0 Baso % (Auto) 1.2 Lymph # 1.6 [place] # 0.6 Eos # 0.2 Baso # 0.1 Seg Neutrophils % 66.8 Seg Neutrophils # 5.1 Sodium 134 L Potassium 5.0 Chloride 100.0 Carbon Dioxide 21 L Anion Gap 18 BUN 20 H Creatinine 0.9 Estimated GFR > 60 BUN/Creatinine Ratio 22 Glucose 121 H Calcium 8.9 Troponin T < 0.010 < 0.010 Vital Signs - 24 hr 09/18/17 09/18/17 06:42 06:55 Temperature 98 F Pulse Rate 84 Respiratory 18 Rate Blood Pressure 148/87 O2 Sat by Pulse 100 Oximetry - EKG Data 09/18/17 14:32 EKG obtained at 644 Normal sinus rhythm rate of 90 normal axis normal intervals no ST elevation left bundle branch block positive PVCs - Medical Decision Making Ms. Kraus presents with right-sided chest pain. Chest pain atypical for ACS. Serial troponins normal. There are PVCs present on EKG possible source of pain. Patient will be discharged home. I reviewed multiple discharge summaries and cardiology consultations. Patient had a myocardial perfusion scan august 2016 which did not reveal acute ischemia. Cardiac catheterization in 2013 revealed 50% lesions in coronary vessels dc'd home Critical care attestation.: If time is entered above; I have spent that time in minutes in the direct care of this critically ill patient, excluding procedure time. ED Disposition Clinical Impression: Chest pain Disposition: DC-01 TO HOME OR SELFCARE Is pt being admited?: No Does the pt Need Aspirin: No Condition: Stable Instructions: Chest Pain (ED) Referrals: [facility] [Outside] - 3-5 Days Time of Disposition: 14:33
[2017-09-18] MEDS ORDERED: PERCOCET 5/325 PO ONE (14:33)
[2017-09-18 14:34] VITALS: BP 136/82
== END 2017-09-18 15:22 | disposition home or self-care (01) ==
LOC: ED 06:36
DX: R07.89 Other chest pain (principal); I11.0 Hypertensive heart disease with heart failure; E11.9 Type 2 diabetes mellitus without complications; J45.909 Unspecified asthma, uncomplicated; I25.10 Atherosclerotic heart disease of native coronary artery without angina pectoris; Z90.710 Acquired absence of both cervix and uterus; Z88.5 Allergy status to narcotic agent
CPT/HCPCS: 36415; 80048; 84484; 85025; 93005; 93010; 99283

== ENCOUNTER 2017-09-24 03:35 | Emergency (ER) | payer MEDICAID ==
[2017-09-24] MEDS ORDERED: ASPIRIN PO ONE (04:03)
--- NOTE | 2017-09-24 04:46 | Emergency Department Report ---
Blank Doc - Documentation Documentation: Medical screening exam: Patient is 57-year-old female who is presenting with chest pain. Patient was admitted to the hospital last week for the same. Patient was found to be anemic was given 1 unit of packed red blood cells. Patient was seen by cardiology had serial enzymes that were negative. Patient did fail a stress test was taken for cardiac cath and was found to have no lesions that needed stenting. Patient was discharged home. Patient states she is continued to have chest pain and doesn't feel as though she should have been discharged. Her cardiac enzymes basic laboratory studies will be ordered tonight.
[2017-09-24 05:13] LABS: Basophils # (Auto) 0.1 K/mm3 (0.0-0.1); Basophils % (Auto) 0.9 % (0.0-1.8); Eosinophils # (Auto) 0.1 K/mm3 (0.0-0.4); Eosinophils % (Auto) 1.9 % (0.0-4.3); Hematocrit 33.8 % (30.3-42.9); Hemoglobin 10.7 gm/dl (10.1-14.3); Lymphocytes # (Auto) 1.1 K/mm3 (1.2-5.4); Mean Corpuscular HGB Conc 32 % (30-34); Mean Corpuscular Hemoglobin 28 pg (28-32); Mean Corpuscular Volume 90 fl (79-97); Monocytes # (Auto) 0.5 K/mm3 (0.0-0.8); Monocytes % (Auto) 7.8 % (0.0-7.3); Platelet Count 191 K/mm3 (140-440); Red Blood Count 3.77 M/mm3 (3.65-5.03)
[2017-09-24 05:17] LABS: Red Cell Distribution Width 22.7 % (13.2-15.2)
[2017-09-24 05:27] LABS: Calcium 8.6 mg/dL (8.4-10.2)
--- NOTE | 2017-09-24 06:43 | Emergency Department Report ---
ED Chest Pain HPI - General Chief Complaint: Chest Pain Stated Complaint: CHEST PAIN Time Seen by Provider: 09/24/17 06:11 Source: patient, EMS Mode of arrival: Ambulatory Limitations: No Limitations - History of Present Illness Initial Comments: He is a 57-year-old female that presented to the emergency room with complaints of chest pain and shortness of breath 3 days. Patient has a significant cardiac history including CAD with 8 stents. Patient denies diaphoresis and anxiety. Patient denies fever and chills. Patient denies cough. Patient states the pain is in her left chest and substernal and radiating down her left arm. Patient states she was discharged yesterday from the hospital and is still having pain. Patient states the pain is 5 out of 10. Patient states that the shortness of breath is minor. Patient states that the pain shortness of breath is worse with activity and better with rest MD Complaint: chest pain -: Sudden, days(s) (3 days) Onset: during rest Pain Location: substernal, left chest Pain Radiation: LUE Severity: moderate Severity scale (0 -10): 5 Quality: heaviness, sharp Consistency: constant Improves With: rest Worsens With: movement Context: recent surgery re: dyspnea. denies: nausea, vomting, diaphoresis, sense of impending doom Other Symptoms: denies: cough, fever, syncope, rash, acid taste in mouth, leg swelling, palpitations, burping Treatments Prior to Arrival: aspirin Aspirin use within the Past 7 Days: (1) Yes - Related Data Home Medications Medication Instructions Recorded Confirmed Last Taken risperiDONE [RisperiDONE] 1 mg PO DAILY 08/15/16 09/24/17 09/24/17 Lisinopril [Zestril TAB] 20 mg PO DAILY 08/25/17 09/24/17 09/24/17 Previous Rx's Medication Instructions Recorded Last Taken Type AtorvaSTATin [Lipitor] 40 mg PO QHS #30 tablet 08/15/16 09/24/17 Rx Carvedilol [Coreg] 25 mg PO BID #60 tablet 09/02/16 09/24/17 Rx Furosemide [Lasix TAB] 40 mg PO QDAY #30 tablet 09/02/16 09/24/17 Rx ALBUTEROL Inhaler [ProAir HFA 2 puff IH QID PRN #1 inhalation 06/28/17 Unknown Rx Inhaler] Aspirin [Aspirin BABY CHEW TAB] 81 mg PO QDAY #30 tab.chew 09/23/17 09/24/17 Rx Ferrous Sulfate 325 mg PO DAILY #30 tablet. 09/23/17 09/24/17 Rx Rivaroxaban [Xarelto] 20 mg PO QDAY tablet 09/23/17 09/24/17 Rx ISOSORBIDE MONOnitrate [Imdur ER] 60 mg PO QDAY #30 tablet 09/24/17 09/24/17 Rx Allergies Allergy/AdvReac Type Severity Reaction Status Date / Time codeine Allergy Hives Verified 06/15/14 05:41 Heart Score - HEART Score History: Highly suspicious EKG: Normal Age: 45-65 Risk factors: > 3 risk factors or hx of atherosclerotic disease Troponin: < normal limit HEART Score: 5 ED Review of Systems ROS: Stated complaint: CHEST PAIN Other details as noted in HPI Comment: All other systems reviewed and negative Constitutional: denies: chills, fever Eyes: denies: eye pain, eye discharge, vision change ENT: denies: ear pain, throat pain Respiratory: shortness of breath. denies: cough, wheezing Cardiovascular: chest pain. denies: palpitations Endocrine: no symptoms reported Gastrointestinal: denies: abdominal pain, nausea, diarrhea Genitourinary: denies: urgency, dysuria, discharge Musculoskeletal: denies: back pain, joint swelling, arthralgia Skin: denies: rash, lesions Neurological: denies: headache, weakness, paresthesias Psychiatric: denies: anxiety, depression Hematological/Lymphatic: denies: easy bleeding, easy bruising ED Past Medical Hx - Past Medical History Previous Medical History?: Yes Hx Hypertension: Yes Hx Heart Attack/AMI: Yes Hx Congestive Heart Failure: Yes Hx Diabetes: Yes Hx Deep Vein Thrombosis: No Hx Seizures: No Hx Asthma: Yes Hx COPD: Yes Hx Dementia: Yes Additional medical history: CAD - Surgical History Past Surgical History?: Yes Hx Coronary Stent: Yes ((8) heart stents) Hx Pacemaker: No Hx Internal Defibrillator: No Additional Surgical History: HYSTERECTOMY - Family History Family history: hypertension - Social History Smoking Status: Never Smoker Substance Use Type: None - Medications Home Medications: Home Medications Medication Instructions Recorded Confirmed Last Taken Type AtorvaSTATin [Lipitor] 40 mg PO QHS #30 tablet 08/15/16 09/24/17 09/24/17 Rx risperiDONE [RisperiDONE] 1 mg PO DAILY 08/15/16 09/24/17 09/24/17 History Carvedilol [Coreg] 25 mg PO BID #60 tablet 09/02/16 09/24/17 09/24/17 Rx Furosemide [Lasix TAB] 40 mg PO QDAY #30 tablet 09/02/16 09/24/17 09/24/17 Rx ALBUTEROL Inhaler [ProAir HFA 2 puff IH QID PRN #1 inhalation 06/28/17 09/24/17 Unknown Rx Inhaler] Lisinopril [Zestril TAB] 20 mg PO DAILY 08/25/17 09/24/17 09/24/17 History Aspirin [Aspirin BABY CHEW TAB] 81 mg PO QDAY #30 tab.chew 09/23/17 09/24/1706/01 Rx Ferrous Sulfate 325 mg PO DAILY #30 tablet. 09/23/17 09/24/17 09/24/17 Rx Rivaroxaban [Xarelto] 20 mg PO QDAY tablet 09/23/17 09/24/17 09/24/17 Rx ISOSORBIDE MONOnitrate [Imdur ER] 60 mg PO QDAY #30 tablet 09/24/17 09/24/1706/01 Rx ED Physical Exam - General Limitations: No Limitations General appearance: alert, in no apparent distress - Head Head exam: Present: atraumatic, normocephalic - Eye Eye exam: Present: normal appearance - ENT ENT exam: Present: mucous membranes moist - Neck Neck exam: Present: normal inspection - Respiratory Respiratory exam: Present: normal lung sounds bilaterally. Absent: respiratory distress - Cardiovascular Cardiovascular Exam: Present: regular rate, normal rhythm. Absent: systolic murmur, diastolic murmur, rubs, gallop - GI/Abdominal GI/Abdominal exam: Present: soft, normal bowel sounds - Extremities Exam Extremities exam: Present: normal inspection - Back Exam Back exam: Present: normal inspection - Neurological Exam Neurological exam: Present: alert, oriented X3 - Psychiatric Psychiatric exam: Present: normal affect, normal mood - Skin Skin exam: Present: warm, dry, intact, normal color. Absent: rash ED Course Vital Signs 09/24/17 09/24/17 09/24/17 03:50 05:24 05:30 Temperature 98.0 F Pulse Rate 77 93 H 97 H Respiratory 16 21 22 Rate Blood Pressure 170/83 163/76 Blood Pressure [Right] O2 Sat by Pulse 99 99 Oximetry 09/24/17 09/24/17 09/24/17 05:46 06:00 06:16 Temperature Pulse Rate 86 89 92 H Respiratory 16 15 16 Rate Blood Pressure 163/76 163/76 Blood Pressure [Right] O2 Sat by Pulse 100 100 99 Oximetry 09/24/17 09/24/17 09/24/17 06:30 06:46 07:02 Temperature Pulse Rate 93 H 98 H 100 H Respiratory 17 12 15 Rate Blood Pressure 137/71 137/71 137/71 Blood Pressure [Right] O2 Sat by Pulse 100 100 93 Oximetry 09/24/17 09/24/17 09/24/17 07:16 07:30 07:44 Temperature Pulse Rate 92 H 95 H Respiratory 17 20 18 Rate Blood Pressure 137/71 137/71 Blood Pressure [Right] O2 Sat by Pulse 100 100 95 Oximetry 09/24/17 09/24/17 09/24/17 07:46 08:00 08:16 Temperature Pulse Rate 90 88 91 H Respiratory 17 16 16 Rate Blood Pressure 137/71 143/79 143/79 Blood Pressure [Right] O2 Sat by Pulse 99 98 98 Oximetry 09/24/17 09/24/17 09/24/17 08:30 08:46 09:00 Temperature Pulse Rate 92 H 101 H 101 H Respiratory 17 15 14 Rate Blood Pressure 143/79 143/79 143/79 Blood Pressure [Right] O2 Sat by Pulse 98 97 100 Oximetry 09/24/17 09/24/17 09/24/17 09:16 09:30 09:46 Temperature Pulse Rate 89 92 H 89 Respiratory 22 19 23 Rate Blood Pressure 161/89 161/89 161/89 Blood Pressure [Right] O2 Sat by Pulse 100 100 100 Oximetry 09/24/17 09/24/17 09/24/17 10:00 10:16 10:30 Temperature Pulse Rate 88 100 H 88 Respiratory 18 13 17 Rate Blood Pressure 133/69 133/69 133/69 Blood Pressure [Right] O2 Sat by Pulse 100 100 Oximetry 09/24/17 09/24/17 09/24/17 10:46 11:00 11:16 Temperature Pulse Rate 99 H 92 H 87 Respiratory 12 13 13 Rate Blood Pressure 141/72 141/63 141/63 Blood Pressure [Right] O2 Sat by Pulse 100 100 100 Oximetry 09/24/17 09/24/17 09/24/17 11:30 11:46 12:00 Temperature Pulse Rate 92 H 93 H 95 H Respiratory 19 12 10 L Rate Blood Pressure 141/63 131/68 131/68 Blood Pressure [Right] O2 Sat by Pulse 100 100 100 Oximetry 09/24/17 09/24/17 09/24/17 12:16 12:17 12:30 Temperature Pulse Rate 92 H 94 H 86 Respiratory 16 16 Rate Blood Pressure 131/68 131/68 131/68 Blood Pressure [Right] O2 Sat by Pulse 100 Oximetry 09/24/17 12:42 Temperature Pulse Rate 83 Respiratory Rate Blood Pressure Blood Pressure 134/84 [Right] O2 Sat by Pulse Oximetry - Reevaluation(s) Reevaluation #1: Will admit admit patient to the hospital. All results discussed with patient and plan of care and admission discussed with patient. Patient agreed to admission. We will consult hospitalist for admission. Discussed case with hospitalist. Hospitalist to assume care 09/24/17 09:34 Reevaluation #2: Discussed plan of care with patient. Patient agrees with admission. All results discussed with patient. 09/24/17 10:05 YANICK score - Yanick Score Age > 65: (0) No Aspirin use within the Past 7 Days: (1) Yes 3 or more CAD Risk Factors: (1) Yes 2 or more Angina events in past 24 hrs: (0) No Known CAD with more than 50% Stenosis: (1) Yes Elevated Cardiac Markers: (0) No ST Deviation Greater than 0.5mm: (0) No YANICK Score: 3 ED Medical Decision Making - Lab Data Result diagrams: 09/24/17 04:38 09/24/17 04:38 - EKG Data -: EKG Interpreted by Wy EKG shows normal: sinus rhythm, ST-T waves Rate: normal - EKG Data Interpretation: LVH, other (left bundle branch block noted. Trigeminy noted) - Radiology Data Radiology results: report reviewed, image reviewed - Medical Decision Making 7-year-old presents to [facility] with chest pain shortness of breath with significant cardiac history. Will admit patient to hospitalist service. - Differential Diagnosis cp. chf exac. sob. cad. Critical care attestation.: If time is entered above; I have spent that time in minutes in the direct care of this critically ill patient, excluding procedure time. ED Disposition Clinical Impression: Chest pain, CAD (coronary artery disease), Diabetes mellitus, Chronic systolic CHF (congestive heart failure), Shortness of breath Disposition: OP ADMIT IP TO THIS HOSP Is pt being admited?: Yes Does the pt Need Aspirin: No Condition: Serious Referrals: MENG WALTERS MD [Staff Physician] - 09/28/17 YESSENIA GARCIA MD [Primary Care Provider] - 7 Days Time of Disposition: 09:37
[2017-09-24] MEDS ORDERED: ASPIRIN ONE (07:10)
--- NOTE | 2017-09-24 07:12 | XRay Report ---
FINAL REPORT EXAM: XR CHEST 1V AP HISTORY: cp TECHNIQUE: AP portable view(s) of the chest obtained. PRIORS: 09/19/[address] pulmonary angiogram FINDINGS: No mediastinal shift. Mild cardiomegaly. Left chest pacemaker. Mild basilar predominant interstitial prominence. No pneumothorax, effusion or focal airspace disease is detected. No acute skeletal findings. IMPRESSION: Suggested mild pulmonary interstitial edema without additional acute pulmonary finding identified. Consider PA and lateral chest radiographic follow-up as warranted.
[2017-09-24] MEDS ORDERED: HumuLIN R IV ONE (08:13)
[2017-09-24] MEDS ORDERED: HumuLIN R SUB-Q ONE (08:30)
[2017-09-24] MEDS ORDERED: MORPHINE IV ONE (10:32)
[2017-09-24] MEDS ORDERED: IMDUR PO SCH (11:00)
--- NOTE | 2017-09-24 11:39 | Consultation ---
History of Present Illness - Reason for Consult Consult date: 09/24/17 Chest Pain/ Possible admission - History of Present Illness Patient presents with complaint of chest pain and shortness of breath. Patient states that chest pain had been ongoing for several days while she was in the hospital but got worst last night. This chest pain is substernal and radiates to her left arm. Patient has been experiencing this pain in the same area for several years. She underwent cardiac angiography yesterday which showed nonobstructive CAD with no need for further intervention. Past History Past Medical History: acute [place], CAD, diabetes, heart failure, hypertension Past Surgical History: hysterectomy, Other (8 cardiac stents) Medications and Allergies Allergies Allergy/AdvReac Type Severity Reaction Status Date / Time codeine Allergy Hives Verified 06/15/14 05:41 Home Medications Medication Instructions Recorded Confirmed Last Taken Type AtorvaSTATin [Lipitor] 40 mg PO QHS #30 tablet 08/15/16 09/24/17 09/24/17 Rx risperiDONE [RisperiDONE] 1 mg PO DAILY 08/15/16 09/24/17 09/24/17 History Carvedilol [Coreg] 25 mg PO BID #60 tablet 09/02/16 09/24/17 09/24/17 Rx Furosemide [Lasix TAB] 40 mg PO QDAY #30 tablet 09/02/16 09/24/17 09/24/17 Rx ALBUTEROL Inhaler [ProAir HFA 2 puff IH QID PRN #1 inhalation 06/28/17 09/24/17 Unknown Rx Inhaler] Lisinopril [Zestril TAB] 20 mg PO DAILY 08/25/17 09/24/17 09/24/17 History Aspirin [Aspirin BABY CHEW TAB] 81 mg PO QDAY #30 tab.chew 09/23/17 09/24/1706/01 Rx Ferrous Sulfate 325 mg PO DAILY #30 tablet. 09/23/17 09/24/17 09/24/17 Rx Rivaroxaban [Xarelto] 20 mg PO QDAY tablet 09/23/17 09/24/17 09/24/17 Rx ISOSORBIDE MONOnitrate [Imdur ER] 60 mg PO QDAY #30 tablet 09/24/17 09/24/1706/01 Rx Active Meds: Active Medications Isosorbide Mononitrate (Imdur) 60 mg PO QDAY ROMY Review of Systems All systems: negative (substernal chest pain) Exam - Constitutional Vitals: Temp Pulse Resp BP Pulse Ox 98.0 F 89 22 161/89 100 09/24/17 03:50 09/24/17 09:16 09/24/17 09:16 09/24/17 09:16 09/24/17 09:16 General appearance: Present: no acute distress, well-nourished - EENT Eyes: Present: PERRL ENT: hearing intact, clear oral mucosa - Neck Neck: Present: supple, normal ROM - Respiratory Respiratory effort: normal Respiratory: bilateral: CTA - Cardiovascular Heart Sounds: Present: S1 & S2. Absent: rub, click - Extremities Extremities: pulses symmetrical, No edema Peripheral Pulses: within normal limits - Abdominal General gastrointestinal: Present: soft, non-tender, non-distended, normal bowel sounds Female genitourinary: Present: normal - Integumentary Integumentary: Present: clear, warm, dry - Musculoskeletal Musculoskeletal: gait normal, strength equal bilaterally - Psychiatric Psychiatric: appropriate mood/affect, intact judgment & insight - Neurologic Neurologic: CNII-XII intact, moves all extremities Results - Labs CBC & Chem 7: 09/24/17 04:38 09/24/17 04:38 Labs: Abnormal lab results 09/24/17 09/24/17 09/24/17 Range/Units 04:38 04:38 04:45 RDW 22.7 H (13.2-15.2) % [place] % (Auto) 7.8 H (0.0-7.3) % Lymph # 1.1 L (1.2-5.4) K/mm3 Seg Neutrophils % 72.4 H (40.0-70.0) % Sodium 136 L (137-145) mmol/L Chloride 92.0 L (98-107) mmol/L BUN 21 H (7-17) mg/dL Glucose 541 H* (65-100) mg/dL POC Glucose (70-105) NT-Pro-B Natriuret Pep 5782 H (0-900) pg/mL 09/24/17 09/24/17 Range/Units 07:34 09:31 RDW (13.2-15.2) % [place] % (Auto) (0.0-7.3) % Lymph # (1.2-5.4) K/mm3 Seg Neutrophils % (40.0-70.0) % Sodium (137-145) mmol/L Chloride (98-107) mmol/L BUN (7-17) mg/dL Glucose (65-100) mg/dL POC Glucose 459 H 325 H (70-105) NT-Pro-B Natriuret Pep (0-900) pg/mL Assessment and Plan Patient was seen and examined. No further cardiac work up indicated at this time. Will increase pt's Imdur to 60mg daily, prescription sent to pharmacy. Patient instructed to keep a daily blood pressure log and to follow up with Cardiology on 09/28/17.
[2017-09-24 14:25] VITALS: BP 134/82
[2017-09-25] MEDS ORDERED: NACL ONE (06:55)
== END 2017-09-24 14:25 | disposition admitted as inpatient to this hospital (09) ==
LOC: ED 03:35
DX: I25.10 Atherosclerotic heart disease of native coronary artery without angina pectoris (principal); I11.0 Hypertensive heart disease with heart failure; I50.22 Chronic systolic (congestive) heart failure; I25.2 Old myocardial infarction; E11.9 Type 2 diabetes mellitus without complications; J44.9 Chronic obstructive pulmonary disease, unspecified; F03.90 Unspecified dementia, unspecified severity, without behavioral disturbance, psychotic disturbance, mood disturbance, and anxiety; Z90.710 Acquired absence of both cervix and uterus; Z95.818 Presence of other cardiac implants and grafts; Z88.5 Allergy status to narcotic agent
CPT/HCPCS: 36415; 71045; 80048; 82962; 83880; 84484; 85025; 93005; 93010; 96372; 96374; 99285; J2270; J1815

== ENCOUNTER 2017-10-17 01:54 | Emergency (ER) | payer MEDICAID ==
[2017-10-17] MEDS ORDERED: ASPIRIN PO ONE (02:31)
[2017-10-17 03:30] LABS: Basophils # (Auto) 0.1 K/mm3 (0.0-0.1); Basophils % (Auto) 0.8 % (0.0-1.8); Eosinophils # (Auto) 0.1 K/mm3 (0.0-0.4); Eosinophils % (Auto) 0.5 % (0.0-4.3); Hematocrit 30.2 % (30.3-42.9); Hemoglobin 9.7 gm/dl (10.1-14.3); Lymphocytes # (Auto) 1.6 K/mm3 (1.2-5.4); Lymphocytes % (Auto) 16.8 % (13.4-35.0); Mean Corpuscular HGB Conc 32 % (30-34); Mean Corpuscular Hemoglobin 29 pg (28-32); Mean Corpuscular Volume 90 fl (79-97); Monocytes # (Auto) 0.8 K/mm3 (0.0-0.8); Monocytes % (Auto) 8.9 % (0.0-7.3); Platelet Count 229 K/mm3 (140-440); Red Blood Count 3.35 M/mm3 (3.65-5.03)
[2017-10-17 03:46] LABS: Red Cell Distribution Width 23.1 % (13.2-15.2)
[2017-10-17 04:09] LABS: Calcium 8.3 mg/dL (8.4-10.2)
[2017-10-17 05:42] LABS: Bacteria,Urine 1+ /HPF (Negative); Bilirubin,Urine NEG (Negative); Blood,Urine NEG (Negative); Color,Urine Yellow (Yellow)
[2017-10-17] MEDS ORDERED: ULTRAM PO ONE (17:47)
[2017-10-17] MEDS ORDERED: PHENERGAN PO ONE (17:47)
[2017-10-17] MEDS ORDERED: HumuLIN R IV ONE (17:47)
[2017-10-17] MEDS ORDERED: NACL 0.9% 500 ML 500 ML IV ONE (17:47)
[2017-10-17] MEDS ORDERED: MORPHINE IV ONE (17:50)
--- NOTE | 2017-10-17 17:54 | Emergency Department Report ---
ED Chest Pain HPI - General Chief Complaint: Chest Pain Stated Complaint: CHEST PAIN Time Seen by Provider: 10/17/17 17:30 Source: patient Mode of arrival: Ambulatory Limitations: No Limitations - History of Present Illness Initial Comments: 57-year-old female with a past medical history CHF with EF of 25-30%, COPD, asthma, dementia, non insulin dependent diabetes, CAD, hypertension, multiple cardiac stents and defibrillator assessed the hospital with complaints of chest pain and nausea vomiting. Patient states that the mid sternal chest pain is chronic, constant, 8/10 intensity, and worse with palpation and coughing. Patient ran out of her tramadol yesterday. She presents with several episodes of nausea and vomiting since yesterday. Some abdominal soreness reportedly without hematemesis, diarrhea, hematochezia, melena, or fever. Patient has multiple ED visits to the hospital for same. She had cardiac cath 09/23/2017 showing nonobstructive CAD. She had a negative CT angiogram chest on September 19. She is currently compliant with her Xarelto. - Related Data Home Medications Medication Instructions Recorded Confirmed Last Taken risperiDONE [RisperiDONE] 1 mg PO DAILY 08/15/16 09/24/17 09/24/17 Lisinopril [Zestril TAB] 20 mg PO DAILY 08/25/17 09/24/17 09/24/17 Previous Rx's Medication Instructions Recorded Last Taken Type AtorvaSTATin [Lipitor] 40 mg PO QHS #30 tablet 08/15/16 09/24/17 Rx Carvedilol [Coreg] 25 mg PO BID #60 tablet 09/02/16 09/24/17 Rx Furosemide [Lasix TAB] 40 mg PO QDAY #30 tablet 09/02/16 09/24/17 Rx ALBUTEROL Inhaler [ProAir HFA 2 puff IH QID PRN #1 inhalation 06/28/17 Unknown Rx Inhaler] Aspirin [Aspirin BABY CHEW TAB] 81 mg PO QDAY #30 tab.chew 09/23/17 09/24/17 Rx Ferrous Sulfate 325 mg PO DAILY #30 tablet.dr 09/23/17 09/24/17 Rx Rivaroxaban [Xarelto] 20 mg PO QDAY tablet 09/23/17 09/24/17 Rx ISOSORBIDE MONOnitrate [Imdur ER] 60 mg PO QDAY #30 tablet 09/24/17 09/24/17 Rx Promethazine [Phenergan TAB] 25 mg PO Q6HR PRN #20 tab 10/17/17 Unknown Rx traMADol [Ultram 50 MG tab] 50 mg PO Q6HR PRN #20 tablet 10/17/17 Unknown Rx Allergies Allergy/AdvReac Type Severity Reaction Status Date / Time codeine Allergy Hives Verified 06/15/14 05:41 Heart Score - HEART Score History: Slightly suspicious EKG: Non-specific Age: 45-65 Risk factors: > 3 risk factors or hx of atherosclerotic disease Troponin: < normal limit HEART Score: 4 ED Review of Systems ROS: Stated complaint: CHEST PAIN Other details as noted in HPI ED Past Medical Hx - Past Medical History Previous Medical History?: Yes Hx Hypertension: Yes Hx Heart Attack/AMI: Yes Hx Congestive Heart Failure: Yes Hx Diabetes: Yes Hx Deep Vein Thrombosis: No Hx Seizures: No Hx Asthma: Yes Hx COPD: Yes Hx Dementia: Yes Additional medical history: CAD - Surgical History Past Surgical History?: Yes Hx Coronary Stent: Yes ((8) heart stents) Hx Pacemaker: No Hx Internal Defibrillator: No Additional Surgical History: HYSTERECTOMY - Social History Smoking Status: Never Smoker Substance Use Type: None - Medications Home Medications: Home Medications Medication Instructions Recorded Confirmed Last Taken Type AtorvaSTATin [Lipitor] 40 mg PO QHS #30 tablet 08/15/16 09/24/17 09/24/17 Rx risperiDONE [RisperiDONE] 1 mg PO DAILY 08/15/16 09/24/17 09/24/17 History Carvedilol [Coreg] 25 mg PO BID #60 tablet 09/02/16 09/24/17 09/24/17 Rx Furosemide [Lasix TAB] 40 mg PO QDAY #30 tablet 09/02/16 09/24/17 09/24/17 Rx ALBUTEROL Inhaler [ProAir HFA 2 puff IH QID PRN #1 inhalation 06/28/17 09/24/17 Unknown Rx Inhaler] Lisinopril [Zestril TAB] 20 mg PO DAILY 08/25/17 09/24/17 09/24/17 History Aspirin [Aspirin BABY CHEW TAB] 81 mg PO QDAY #30 tab.chew 09/23/17 09/24/1706/01 Rx Ferrous Sulfate 325 mg PO DAILY #30 tablet. 09/23/17 09/24/17 09/24/17 Rx Rivaroxaban [Xarelto] 20 mg PO QDAY tablet 09/23/17 09/24/17 09/24/17 Rx ISOSORBIDE MONOnitrate [Imdur ER] 60 mg PO QDAY #30 tablet 09/24/17 09/24/1706/01 Rx Promethazine [Phenergan TAB] 25 mg PO Q6HR PRN #20 tab 10/17/17 Unknown Rx traMADol [Ultram 50 MG tab] 50 mg PO Q6HR PRN #20 tablet 10/17/17 Unknown Rx ED Physical Exam - General Limitations: No Limitations - Other Other exam information: General: No limitations, patient is alert in no acute distress Head exam: Atraumatic, normocephalic Eyes exam: Normal appearance, pupils equal reactive to light, extraocular movements intact ENT: Moist mucous membrane, normal oropharynx Neck exam: Normal inspection, full range of motion, no meningismus nontender Respiratory exam: Clear to auscultation bilateral, no wheezes, rales, crackles. Cardiovascular: Normal rate and rhythm, normal heart sounds. Reproducible sternal chest wall tenderness Abdomen: Soft, nondistended, mild generalized upper abdominal, with normal bowel sounds, no rebound, or guarding Extremity: Full range of motion normal inspection no deformity, tenderness or edema Back: Normal Inspection, full range of motion, no tenderness Neurologic: Alert, oriented x3, cranial nerves intact, no motor or sensory deficit Psychiatric: normal affect, normal mood Skin: Warm, dry, intact. ED Course Vital Signs 10/17/17 10/17/17 10/17/17 02:23 17:40 17:51 Temperature 97.9 F Pulse Rate 84 Respiratory 18 Rate Blood Pressure 165/94 180/113 O2 Sat by Pulse 100 100 Oximetry 10/17/17 10/17/17 10/17/17 18:00 18:15 18:30 Temperature Pulse Rate 92 H 94 H 89 Respiratory 25 H 24 21 Rate Blood Pressure 179/105 188/119 182/105 O2 Sat by Pulse 100 100 100 Oximetry 10/17/17 10/17/17 10/17/17 18:45 19:00 19:50 Temperature Pulse Rate 93 H 97 H Respiratory 21 23 Rate Blood Pressure 171/113 189/117 176/106 O2 Sat by Pulse 100 94 100 Oximetry 10/17/17 10/17/17 10/17/17 20:00 20:30 21:00 Temperature Pulse Rate 92 H 97 H 99 H Respiratory 20 20 21 Rate Blood Pressure 157/107 162/111 174/102 O2 Sat by Pulse 96 100 100 Oximetry 10/17/17 10/17/17 10/17/17 21:02 22:01 22:10 Temperature Pulse Rate 87 93 H Respiratory Rate Blood Pressure 173/90 173/90 166/99 O2 Sat by Pulse 98 94 Oximetry - Reevaluation(s) Reevaluation #1: 10/17/17 23:00 Glucose continues to trend downward after initial 8 then 2 units of regular insulin subcutaneous. Additional 10 units canceled given continued decrease in glucose with ED stay. Patient tolerating by mouth fluids. Pain treated with tramadol and 1 Percocet. Patient is without distress or further vomiting after Phenergan. BP decreasing after clonidine YANICK score - Yanick Score Age > 65: (0) No Aspirin use within the Past 7 Days: (1) Yes 3 or more CAD Risk Factors: (1) Yes 2 or more Angina events in past 24 hrs: (0) No Known CAD with more than 50% Stenosis: (1) Yes Elevated Cardiac Markers: (0) No ST Deviation Greater than 0.5mm: (0) No YANICK Score: 3 ED Medical Decision Making - Lab Data Result diagrams: 10/17/17 03:16 10/17/17 03:16 Lab Results 10/17/17 10/17/17 10/17/17 Range/Units 03:16 03:16 04:13 WBC 9.5 (4.5-11.0) K/mm3 RBC 3.35 L (3.65-5.03) M/mm3 Hgb 9.7 L (10.1-14.3) gm/dl Hct 30.2 L (30.3-42.9) % MCV 90 (79-97) fl MCH 29 (28-32) pg MCHC 32 (30-34) % RDW 23.1 H (13.2-15.2) % Plt Count 229 (140-440) K/mm3 Lymph % (Auto) 16.8 (13.4-35.0) % Menard % (Auto) 8.9 H (0.0-7.3) % Eos % (Auto) 0.5 (0.0-4.3) % Baso % (Auto) 0.8 (0.0-1.8) % Lymph # 1.6 (1.2-5.4) K/mm3 Menard # 0.8 (0.0-0.8) K/mm3 Eos # 0.1 (0.0-0.4) K/mm3 Baso # 0.1 (0.0-0.1) K/mm3 Seg Neutrophils % 73.0 H (40.0-70.0) % Seg Neutrophils # 6.9 (1.8-7.7) K/mm3 Sodium 129 L (137-145) mmol/L Potassium 4.3 (3.6-5.0) mmol/L Chloride 93.8 L (98-107) mmol/L Carbon Dioxide 18 L (22-30) mmol/L Anion Gap 22 mmol/L BUN 28 H (7-17) mg/dL Creatinine 1.3 H (0.7-1.2) mg/dL Estimated GFR 51 ml/min BUN/Creatinine Ratio 22 % Glucose 335 H (65-100) mg/dL POC Glucose (70-105) Calcium 8.3 L (8.4-10.2) mg/dL Total Bilirubin (0.1-1.2) mg/dL Direct Bilirubin (0-0.2) mg/dL Indirect Bilirubin mg/dL AST (5-40) units/L ALT (7-56) units/L Alkaline Phosphatase (35-129) units/L Troponin T 0.014 (0.00-0.029) ng/mL Total Protein (6.3-8.2) g/dL Albumin (3.9-5) g/dL Albumin/Globulin Ratio % Lipase (13-60) units/L Urine Color Yellow (Yellow) Urine Turbidity Clear (Clear) Urine pH 5.0 (5.0-7.0) Ur Specific Knox 1.026 (1.003-1.030) Urine Protein 100 mg/dl (Negative) mg/dL Urine Glucose (UA) >=500 (Negative) mg/dL Urine Ketones Neg (Negative) mg/dL Urine Blood Neg (Negative) Urine Nitrite Neg (Negative) Urine Bilirubin Neg (Negative) Urine Urobilinogen 4.0 (<2.0) mg/dL Ur Leukocyte Esterase Tr (Negative) Urine WBC (Auto) 4.0 (0.0-6.0) /HPF Urine RBC (Auto) 1.0 (0.0-6.0) /HPF U Epithel Cells (Auto) 2.0 (0-13.0) /HPF Urine Bacteria (Auto) 1+ (Negative) /HPF 10/17/17 10/17/17 10/17/17 Range/Units 05:53 08:24 18:29 WBC (4.5-11.0) K/mm3 RBC (3.65-5.03) M/mm3 Hgb (10.1-14.3) gm/dl Hct (30.3-42.9) % MCV (79-97) fl MCH (28-32) pg MCHC (30-34) % RDW (13.2-15.2) % Plt Count (140-440) K/mm3 Lymph % (Auto) (13.4-35.0) % Menard % (Auto) (0.0-7.3) % Eos % (Auto) (0.0-4.3) % Baso % (Auto) (0.0-1.8) % Lymph # (1.2-5.4) K/mm3 Menard # (0.0-0.8) K/mm3 Eos # (0.0-0.4) K/mm3 Baso # (0.0-0.1) K/mm3 Seg Neutrophils % (40.0-70.0) % Seg Neutrophils # (1.8-7.7) K/mm3 Sodium (137-145) mmol/L Potassium (3.6-5.0) mmol/L Chloride (98-107) mmol/L Carbon Dioxide (22-30) mmol/L Anion Gap mmol/L BUN (7-17) mg/dL Creatinine (0.7-1.2) mg/dL Estimated GFR ml/min BUN/Creatinine Ratio % Glucose (65-100) mg/dL POC Glucose (70-105) Calcium (8.4-10.2) mg/dL Total Bilirubin 1.00 (0.1-1.2) mg/dL Direct Bilirubin 0.5 H (0-0.2) mg/dL Indirect Bilirubin 0.5 mg/dL AST 40 (5-40) units/L ALT 19 (7-56) units/L Alkaline Phosphatase 240 H (35-129) units/L Troponin T 0.012 0.018 (0.00-0.029) ng/mL Total Protein 7.3 (6.3-8.2) g/dL Albumin 3.5 L (3.9-5) g/dL Albumin/Globulin Ratio 0.9 % Lipase 173 H (13-60) units/L Urine Color (Yellow) Urine Turbidity (Clear) Urine pH (5.0-7.0) Ur Specific Knox (1.003-1.030) Urine Protein (Negative) mg/dL Urine Glucose (UA) (Negative) mg/dL Urine Ketones (Negative) mg/dL Urine Blood (Negative) Urine Nitrite (Negative) Urine Bilirubin (Negative) Urine Urobilinogen (<2.0) mg/dL Ur Leukocyte Esterase (Negative) Urine WBC (Auto) (0.0-6.0) /HPF Urine RBC (Auto) (0.0-6.0) /HPF U Epithel Cells (Auto) (0-13.0) /HPF Urine Bacteria (Auto) (Negative) /HPF 10/17/17 10/17/17 10/17/17 Range/Units 19:52 20:44 22:18 WBC (4.5-11.0) K/mm3 RBC (3.65-5.03) M/mm3 Hgb (10.1-14.3) gm/dl Hct (30.3-42.9) % MCV (79-97) fl MCH (28-32) pg MCHC (30-34) % RDW (13.2-15.2) % Plt Count (140-440) K/mm3 Lymph % (Auto) (13.4-35.0) % Menard % (Auto) (0.0-7.3) % Eos % (Auto) (0.0-4.3) % Baso % (Auto) (0.0-1.8) % Lymph # (1.2-5.4) K/mm3 Menard # (0.0-0.8) K/mm3 Eos # (0.0-0.4) K/mm3 Baso # (0.0-0.1) K/mm3 Seg Neutrophils % (40.0-70.0) % Seg Neutrophils # (1.8-7.7) K/mm3 Sodium (137-145) mmol/L Potassium (3.6-5.0) mmol/L Chloride (98-107) mmol/L Carbon Dioxide (22-30) mmol/L Anion Gap mmol/L BUN (7-17) mg/dL Creatinine (0.7-1.2) mg/dL Estimated GFR ml/min BUN/Creatinine Ratio % Glucose (65-100) mg/dL POC Glucose 465 H 448 H 365 H (70-105) Calcium (8.4-10.2) mg/dL Total Bilirubin (0.1-1.2) mg/dL Direct Bilirubin (0-0.2) mg/dL Indirect Bilirubin mg/dL AST (5-40) units/L ALT (7-56) units/L Alkaline Phosphatase (35-129) units/L Troponin T (0.00-0.029) ng/mL Total Protein (6.3-8.2) g/dL Albumin (3.9-5) g/dL Albumin/Globulin Ratio % Lipase (13-60) units/L Urine Color (Yellow) Urine Turbidity (Clear) Urine pH (5.0-7.0) Ur Specific Knox (1.003-1.030) Urine Protein (Negative) mg/dL Urine Glucose (UA) (Negative) mg/dL Urine Ketones (Negative) mg/dL Urine Blood (Negative) Urine Nitrite (Negative) Urine Bilirubin (Negative) Urine Urobilinogen (<2.0) mg/dL Ur Leukocyte Esterase (Negative) Urine WBC (Auto) (0.0-6.0) /HPF Urine RBC (Auto) (0.0-6.0) /HPF U Epithel Cells (Auto) (0-13.0) /HPF Urine Bacteria (Auto) (Negative) /HPF 10/17/17 Range/Units 23:02 WBC (4.5-11.0) K/mm3 RBC (3.65-5.03) M/mm3 Hgb (10.1-14.3) gm/dl Hct (30.3-42.9) % MCV (79-97) fl MCH (28-32) pg MCHC (30-34) % RDW (13.2-15.2) % Plt Count (140-440) K/mm3 Lymph % (Auto) (13.4-35.0) % Menard % (Auto) (0.0-7.3) % Eos % (Auto) (0.0-4.3) % Baso % (Auto) (0.0-1.8) % Lymph # (1.2-5.4) K/mm3 Menard # (0.0-0.8) K/mm3 Eos # (0.0-0.4) K/mm3 Baso # (0.0-0.1) K/mm3 Seg Neutrophils % (40.0-70.0) % Seg Neutrophils # (1.8-7.7) K/mm3 Sodium (137-145) mmol/L Potassium (3.6-5.0) mmol/L Chloride (98-107) mmol/L Carbon Dioxide (22-30) mmol/L Anion Gap mmol/L BUN (7-17) mg/dL Creatinine (0.7-1.2) mg/dL Estimated GFR ml/min BUN/Creatinine Ratio % Glucose (65-100) mg/dL POC Glucose 296 H (70-105) Calcium (8.4-10.2) mg/dL Total Bilirubin (0.1-1.2) mg/dL Direct Bilirubin (0-0.2) mg/dL Indirect Bilirubin mg/dL AST (5-40) units/L ALT (7-56) units/L Alkaline Phosphatase (35-129) units/L Troponin T (0.00-0.029) ng/mL Total Protein (6.3-8.2) g/dL Albumin (3.9-5) g/dL Albumin/Globulin Ratio % Lipase (13-60) units/L Urine Color (Yellow) Urine Turbidity (Clear) Urine pH (5.0-7.0) Ur Specific Knox (1.003-1.030) Urine Protein (Negative) mg/dL Urine Glucose (UA) (Negative) mg/dL Urine Ketones (Negative) mg/dL Urine Blood (Negative) Urine Nitrite (Negative) Urine Bilirubin (Negative) Urine Urobilinogen (<2.0) mg/dL Ur Leukocyte Esterase (Negative) Urine WBC (Auto) (0.0-6.0) /HPF Urine RBC (Auto) (0.0-6.0) /HPF U Epithel Cells (Auto) (0-13.0) /HPF Urine Bacteria (Auto) (Negative) /HPF - EKG Data -: EKG Interpreted by Me EKG shows normal: sinus rhythm, axis (5), QRS complexes (117), ST-T waves (no stemi/t wave) Rate: normal (81) - EKG Data When compared to previous EKG there are: no significant change - Medical Decision Making Sodium corrected for hyperglycemia is 133-135. Patient received subcutaneous insulin for mild hyperglycemia No signs of ketones UA and therefore unlikely DKA Patient received oral hydration Received tramadol and Phenergan with improvement Patient experienced a reproducible sternal chest pain which is recurrent and chronic. Patient also presents with chronic intermittent vomiting and abdominal pain when she runs out of her pain medication. She was treated symptomatically and sent home with medication. Follow-up will be encouraged - Differential Diagnosis costochondritis, atypical chest pain, gastritis, Critical Care Time: No Critical care attestation.: If time is entered above; I have spent that time in minutes in the direct care of this critically ill patient, excluding procedure time. ED Disposition Clinical Impression: Chronic chest pain, Nausea and vomiting, Uncontrolled diabetes mellitus, HTN ( hypertension) Disposition: DC- TO HOME OR SELFCARE Is pt being admited?: No Does the pt Need Aspirin: No Condition: Stable Instructions: Chest Pain (ED), Diabetes Mellitus Type 2 in Adults (ED), Hypertension (ED), Costochondritis (ED) Additional Instructions: Follow-up with your doctor. Take the medications as prescribed. Prescriptions: Promethazine [Phenergan TAB] 25 mg PO Q6HR PRN #20 tab PRN Reason: Nausea traMADol [Ultram 50 MG tab] 50 mg PO Q6HR PRN #20 tablet PRN Reason: Pain Referrals: PRIMARY CARE, [Primary Care Provider] - 3-5 Days Time of Disposition: 23:02
[2017-10-17] MEDS ORDERED: HumuLIN R SUB-Q ONE ×3 (19:24→22:21)
[2017-10-17 19:58] LABS: Albumin 3.5 g/dL (3.9-5); Bilirubin,Direct 0.5 mg/dL (0-0.2)
[2017-10-17] MEDS ORDERED: CATAPRES PO ONE (20:49)
[2017-10-17] MEDS ORDERED: PERCOCET 5/325 PO ONE (21:37)
[2017-10-17 23:27] VITALS: BP 149/85
== END 2017-10-17 23:40 | disposition home or self-care (01) ==
LOC: ED 01:54
DX: I10 Essential (primary) hypertension (principal); E11.9 Type 2 diabetes mellitus without complications; R07.89 Other chest pain; J44.9 Chronic obstructive pulmonary disease, unspecified; Z79.82 Long term (current) use of aspirin; Z88.5 Allergy status to narcotic agent; Z90.710 Acquired absence of both cervix and uterus
CPT/HCPCS: 36415; 80048; 80074; 81001; 82962; 83690; 84484; 85025; 93005; 93010; 96372; 99283; J1815; J2270; J7040; Q0169

== ENCOUNTER 2017-12-04 20:51 | Emergency (ER) | payer MEDICAID ==
[2017-12-05] MEDS ORDERED: ASPIRIN PO ONE (01:31)
[2017-12-05 04:21] LABS: Basophils # (Auto) 0.1 K/mm3 (0.0-0.1); Basophils % (Auto) 0.8 % (0.0-1.8); Eosinophils # (Auto) 0.1 K/mm3 (0.0-0.4); Eosinophils % (Auto) 1.3 % (0.0-4.3); Hematocrit 30.4 % (30.3-42.9); Hemoglobin 9.6 gm/dl (10.1-14.3); Lymphocytes # (Auto) 1.3 K/mm3 (1.2-5.4); Mean Corpuscular HGB Conc 32 % (30-34); Mean Corpuscular Hemoglobin 28 pg (28-32); Mean Corpuscular Volume 88 fl (79-97); Monocytes # (Auto) 0.4 K/mm3 (0.0-0.8); Monocytes % (Auto) 6.5 % (0.0-7.3); Platelet Count 216 K/mm3 (140-440); Red Blood Count 3.44 M/mm3 (3.65-5.03); Red Cell Distribution Width 19.6 % (13.2-15.2)
[2017-12-05 04:36] LABS: BUN/Creatinine Ratio 23; Blood Urea Nitrogen 23 mg/dL (7-17); Calcium 8.8 mg/dL (8.4-10.2); Hemolysis Index 2
[2017-12-05] MEDS ORDERED: TYLENOL PO PRN (09:52)
[2017-12-05] MEDS ORDERED: NITROSTAT SL PRN (09:52)
[2017-12-05] MEDS ORDERED: HumuLIN R SUB-Q ONE ×2 (09:53→11:02)
--- NOTE | 2017-12-05 09:53 | Emergency Department Report ---
ED General Adult HPI - General Chief complaint: Chest Pain Stated complaint: CHEST PAIN Time Seen by Provider: 12/05/17 09:44 Source: patient, RN notes reviewed, old records reviewed Mode of arrival: Stretcher Limitations: No Limitations - History of Present Illness Initial comments: This is a 57-year-old female who is unknown to this provider previously. Past medical history includes major depressive disorder, congestive heart failure, heart disease, stents, ejection fraction of 25-30%, diabetes, asthma, COPD, pulmonary embolus on xarelto The patient had a cardiac catheterization at this hospital September 2017, demonstrating the following findings: "Mild to moderate diffuse nonobstructive disease with patent stents in the proximal and mid left anterior descending, mid circumflex, and full metal jackets of the proximal, mid and distal right coronary. Obstructive disease is identifie mild to moderate diffuse small vessel disease is identified. Severe global left ventricular hypokinesis and ejection fraction 25-30%." Patient presents to the ER today with complaint of chest wall pain. It is sharp. It radiates down the right upper extremity. It has no exacerbating or relieving factors. There is no vomiting, diaphoresis, there is no shortness of breath which is new or different. Patient reports chronic shortness of breath which is unchanged for weeks and months. She endorses compliance with her systemic anticoagulation, and also denies leg pain, leg swelling.. -: Gradual Location: chest Radiation: extremity Quality: aching Consistency: intermittent Improves with: none Worsens with: none Associated Symptoms: chest pain. denies: confusion, cough, diaphoresis, fever/ chills, headaches, loss of appetite, malaise, nausea/vomiting, rash, seizure, shortness of breath (chronic), syncope, weakness - Related Data Previous Rx's Medication Instructions Recorded Last Taken Type AtorvaSTATin [Lipitor] 40 mg PO QHS #30 tablet 08/15/16 09/24/17 Rx Carvedilol [Coreg] 25 mg PO BID #60 tablet 09/02/16 09/24/17 Rx Furosemide [Lasix TAB] 40 mg PO QDAY #30 tablet 09/02/16 09/24/17 Rx ALBUTEROL Inhaler [ProAir HFA 2 puff IH QID PRN #1 inhalation 06/28/17 Unknown Rx Inhaler] Aspirin [Aspirin BABY CHEW TAB] 81 mg PO QDAY #30 tab.chew 09/23/17 09/24/17 Rx Ferrous Sulfate 325 mg PO DAILY #30 tablet.dr 09/23/17 09/24/17 Rx ISOSORBIDE MONOnitrate [Imdur ER] 60 mg PO QDAY #30 tablet 09/24/17 09/24/17 Rx traMADol [Ultram 50 MG tab] 50 mg PO Q6HR PRN #20 tablet 10/17/17 Unknown Rx Acetaminophen [Acetaminophen TAB] 650 mg PO Q4H PRN #30 tablet 11/06/17 Unknown Rx Famotidine [Pepcid] 20 mg PO BID #60 tablet 11/06/17 Unknown Rx Lisinopril [Zestril TAB] 20 mg PO DAILY #30 11/06/17 09/24/17 Rx Rivaroxaban [Xarelto] 20 mg PO QDDIAB #30 tablet 11/06/17 Unknown Rx Sulfamethoxazole/Trimethoprim 1 each PO BID #14 tablet 11/06/17 Unknown Rx [Bactrim DS TAB] oxyCODONE /ACETAMINOPHEN [Percocet 1 tab PO Q6HR PRN #10 tablet 11/06/17 Unknown Rx 5/325 mg] risperiDONE [RisperiDONE] 1 mg PO DAILY #30 11/06/17 09/24/17 Rx Ranolazine [Ranexa] 500 mg PO BID #60 tab.er.12h 12/05/17 Unknown Rx Allergies Allergy/AdvReac Type Severity Reaction Status Date / Time codeine Allergy Hives Verified 06/15/14 05:41 ED Review of Systems ROS: Stated complaint: CHEST PAIN Other details as noted in HPI Comment: All other systems reviewed and negative ED Past Medical Hx - Past Medical History Hx Hypertension: Yes Hx Heart Attack/AMI: Yes (2003) Hx Congestive Heart Failure: Yes Hx Diabetes: Yes Hx Deep Vein Thrombosis: No Hx Seizures: No Hx Asthma: Yes Hx COPD: Yes Hx Dementia: Yes Additional medical history: CAD - Surgical History Hx Coronary Stent: Yes ((8) heart stents) Hx Pacemaker: No Hx Internal Defibrillator: No Additional Surgical History: HYSTERECTOMY - Social History Smoking Status: Never Smoker Substance Use Type: None - Medications Home Medications: Home Medications Medication Instructions Recorded Confirmed Last Taken Type AtorvaSTATin [Lipitor] 40 mg PO QHS #30 tablet 08/15/16 11/04/17 09/24/17 Rx Carvedilol [Coreg] 25 mg PO BID #60 tablet 09/02/16 11/04/17 09/24/17 Rx Furosemide [Lasix TAB] 40 mg PO QDAY #30 tablet 09/02/16 11/04/17 09/24/17 Rx ALBUTEROL Inhaler [ProAir HFA 2 puff IH QID PRN #1 inhalation 06/28/17 11/04/17 Unknown Rx Inhaler] Aspirin [Aspirin BABY CHEW TAB] 81 mg PO QDAY #30 tab.chew 09/23/17 11/04/1706/01 Rx Ferrous Sulfate 325 mg PO DAILY #30 tablet. 09/23/17 11/04/17 09/24/17 Rx ISOSORBIDE MONOnitrate [Imdur ER] 60 mg PO QDAY #30 tablet 09/24/17 11/04/1706/01 Rx traMADol [Ultram 50 MG tab] 50 mg PO Q6HR PRN #20 tablet 10/17/17 11/04/17 Unknown Rx Acetaminophen [Acetaminophen TAB] 650 mg PO Q4H PRN #30 tablet 11/06/17 Unknown Rx Famotidine [Pepcid] 20 mg PO BID #60 tablet 11/06/17 Unknown Rx Lisinopril [Zestril TAB] 20 mg PO DAILY #30 11/06/17 11/04/17 09/24/17 Rx Rivaroxaban [Xarelto] 20 mg PO QDDIAB #30 tablet 11/06/17 Unknown Rx Sulfamethoxazole/Trimethoprim 1 each PO BID #14 tablet 11/06/17 Unknown Rx [Bactrim DS TAB] oxyCODONE /ACETAMINOPHEN [Percocet 1 tab PO Q6HR PRN #10 tablet 11/06/17 Unknown Rx 5/325 mg] risperiDONE [RisperiDONE] 1 mg PO DAILY #30 11/06/17 11/04/17 09/24/17 Rx Ranolazine [Ranexa] 500 mg PO BID #60 tab.er.12h 12/05/17 Unknown Rx ED Physical Exam - General Limitations: No Limitations General appearance: alert, in no apparent distress - Head Head exam: Present: atraumatic, normocephalic - Eye Eye exam: Present: normal appearance, EOMI. Absent: nystagmus - ENT ENT exam: Present: normal exam, normal orophraynx, mucous membranes moist, normal external ear exam - Neck Neck exam: Present: normal inspection, full ROM - Respiratory Respiratory exam: Present: normal lung sounds bilaterally, chest wall tenderness. Absent: respiratory distress - Cardiovascular Cardiovascular Exam: Present: regular rate, normal rhythm, normal heart sounds. Absent: systolic murmur, diastolic murmur, rubs, gallop - GI/Abdominal GI/Abdominal exam: Present: soft, normal bowel sounds. Absent: distended, tenderness, guarding, rebound, rigid, pulsatile mass - Extremities Exam Extremities exam: Present: normal inspection, full ROM, normal capillary refill , other (there is no palpable cord. There is a negative Homans sign.). Absent : pedal edema, joint swelling, calf tenderness - Back Exam Back exam: Present: normal inspection, full ROM. Absent: tenderness, CVA tenderness (R), paraspinal tenderness, vertebral tenderness - Neurological Exam Neurological exam: Present: alert, oriented X3, CN II-XII intact, normal gait, other (Extraocular movements intact. Tongue midline. No facial droop. Facial sensation intact to light touch in the V1, V2, V3 distribution bilaterally. 5 and 5 strength in 4 extremities.. Sensation is intact to light touch in 4 extremities.). Absent: motor sensory deficit - Psychiatric Psychiatric exam: Present: normal affect, normal mood - Skin Skin exam: Present: warm, dry, intact, normal color. Absent: rash ED Course Vital Signs 12/05/17 12/05/17 01:24 06:58 Temperature 98.5 F Pulse Rate 85 Respiratory 18 16 Rate Blood Pressure 154/86 O2 Sat by Pulse 100 100 Oximetry ED Medical Decision Making - Lab Data Result diagrams: 12/05/17 03:50 12/05/17 03:50 Vital Signs 12/05/17 12/05/17 01:24 06:58 Temperature 98.5 F Pulse Rate 85 Respiratory 18 16 Rate Blood Pressure 154/86 O2 Sat by Pulse 100 100 Oximetry Lab Results 12/05/17 12/05/17 Range/Units 03:50 03:50 WBC 6.4 (4.5-11.0) K/mm3 RBC 3.44 L (3.65-5.03) M/mm3 Hgb 9.6 L (10.1-14.3) gm/dl Hct 30.4 (30.3-42.9) % MCV 88 (79-97) fl MCH 28 (28-32) pg MCHC 32 (30-34) % RDW 19.6 H (13.2-15.2) % Plt Count 216 (140-440) K/mm3 Lymph % (Auto) 20.0 (13.4-35.0) % [place] % (Auto) 6.5 (0.0-7.3) % Eos % (Auto) 1.3 (0.0-4.3) % Baso % (Auto) 0.8 (0.0-1.8) % Lymph # 1.3 (1.2-5.4) K/mm3 [place] # 0.4 (0.0-0.8) K/mm3 Eos # 0.1 (0.0-0.4) K/mm3 Baso # 0.1 (0.0-0.1) K/mm3 Seg Neutrophils % 71.4 H (40.0-70.0) % Seg Neutrophils # 4.6 (1.8-7.7) K/mm3 Sodium 131 L (137-145) mmol/L Potassium 4.6 (3.6-5.0) mmol/L Chloride 92.7 L (98-107) mmol/L Carbon Dioxide 22 (22-30) mmol/L Anion Gap 21 mmol/L BUN 23 H (7-17) mg/dL Creatinine 1.0 (0.7-1.2) mg/dL Estimated GFR > 60 ml/min BUN/Creatinine Ratio 23 % Glucose 553 H* (65-100) mg/dL Calcium 8.8 (8.4-10.2) mg/dL Troponin T 0.012 (0.00-0.029) ng/mL - EKG Data -: EKG Interpreted by De EKG shows normal: sinus rhythm - EKG Data 12/05/17 12:00 EKG #1 demonstrates sinus, 83 bpm, low voltage, atrial enlargement, poor R wave progression, left axis deviation, high left ventricular voltage, not a STEMI, appears unchanged from prior from 11/04/2017. EKG #2 was unchanged. - Radiology Data Radiology results: report reviewed, image reviewed X-ray of the chest is negative for acute disease. Chronic findings noted. - Medical Decision Making Differential diagnosis, including but not limited to: Costochondritis, pneumonia , acute coronary syndrome, stable angina Assessment and plan: 57-year-old female with reproducible chest wall tenderness , troponin negative 2, EKG unchanged 2, reports compliance with systemic anticoagulation, recently had a definitive cardiac risk stratification. The patient has been in the ER for hours without clinical decompensation. She has not desaturated or had episodes of tachycardia. She endorses compliance with her systemic anticoagulation. Based on the clinical history I think pulmonary embolus is very unlikely. She was found to have incidental hyperglycemia which was treated with insulin Repeat Accu-Chek was improved. I have consulted the covering physician for the group that performed her recent cardiac catheterization, Dr. Wheeler, we both agree that patient does not require repeat admission for cardiac risk stratification. Patient will be started on Ranexa and instructed to follow up as an outpatient. Critical care attestation.: If time is entered above; I have spent that time in minutes in the direct care of this critically ill patient, excluding procedure time. ED Disposition Clinical Impression: Chest wall pain, Hyperglycemia Disposition: TO HOME OR SELFCARE Is pt being admited?: No Does the pt Need Aspirin: No Condition: Good Instructions: Chest Pain (ED) Additional Instructions: Continue current outpatient medications. Take the Ranexa prescription as needed /directed for chest pain. Follow up with your primary care doctor or noteman within the next 3-5 days. Return to the ER right away with new pain, worsened pain, migration of pain, fevers, chills, lethargy, irritability, projectile vomiting, change in mental status, confusion, inability to tolerate liquid feeds. Referrals: PRIMARY CARE, [Primary Care Provider] - 3-5 Days YISEL WHEELER MD [Staff Physician] - 3-5 Days [facility] [Provider Group] - 3-5 Days [facility] [Provider Group] - 3-5 Days
--- NOTE | 2017-12-05 11:00 | XRay Report ---
ROUTINE CHEST, TWO VIEWS: HISTORY: chest pain. The trachea, heart, mediastinal contour, lung mott and bony thorax are unremarkable. Single lead pacemaker device terminates in the right ventricle and appears unchanged since 11/04/17. IMPRESSION: No acute cardiopulmonary process identified.
[2017-12-05 12:02] VITALS: BP 150/90
== END 2017-12-05 12:20 | disposition home or self-care (01) ==
LOC: ED 20:51
DX: E11.65 Type 2 diabetes mellitus with hyperglycemia (principal); R07.89 Other chest pain; I10 Essential (primary) hypertension; I25.2 Old myocardial infarction; I50.9 Heart failure, unspecified; J44.9 Chronic obstructive pulmonary disease, unspecified; F03.90 Unspecified dementia, unspecified severity, without behavioral disturbance, psychotic disturbance, mood disturbance, and anxiety; I25.10 Atherosclerotic heart disease of native coronary artery without angina pectoris
CPT/HCPCS: 36415; 71046; 80048; 82962; 84484; 85025; 93005; 93010; 96372; J1815

== ENCOUNTER 2017-12-08 04:48 | Emergency (ER) | payer MEDICAID ==
[2017-12-08] MEDS ORDERED: ASPIRIN PO ONE (09:03)
[2017-12-08 10:23] LABS: Basophils % (Auto) 0.6 % (0.0-1.8); Eosinophils # (Auto) 0.1 K/mm3 (0.0-0.4); Eosinophils % (Auto) 0.9 % (0.0-4.3); Hematocrit 34.2 % (30.3-42.9); Hemoglobin 10.8 gm/dl (10.1-14.3); Lymphocytes # (Auto) 1.3 K/mm3 (1.2-5.4); Lymphocytes % (Auto) 17.2 % (13.4-35.0); Mean Corpuscular HGB Conc 32 % (30-34); Mean Corpuscular Hemoglobin 28 pg (28-32); Mean Corpuscular Volume 89 fl (79-97); Monocytes # (Auto) 0.6 K/mm3 (0.0-0.8); Monocytes % (Auto) 7.5 % (0.0-7.3); Platelet Count 246 K/mm3 (140-440); Red Blood Count 3.84 M/mm3 (3.65-5.03); Red Cell Distribution Width 19.3 % (13.2-15.2)
[2017-12-08 10:39] LABS: BUN/Creatinine Ratio 15; Blood Urea Nitrogen 15 mg/dL (7-17); Calcium 9.2 mg/dL (8.4-10.2); Hemolysis Index 11
[2017-12-08 10:49] LABS: INR 0.87 (0.87-1.13)
[2017-12-08 10:50] LABS: Partial Thromboplastin Time 31.2 Sec. (24.2-36.6)
[2017-12-08] MEDS ORDERED: HumuLIN R SUB-Q ONE (19:41)
[2017-12-08] MEDS ORDERED: NACL 0.9% 1000 ML 1,000 ML IV ONE (19:41)
--- NOTE | 2017-12-08 20:09 | Emergency Department Report ---
ED Chest Pain HPI - General Chief Complaint: Chest Pain Stated Complaint: CHEST PAIN Time Seen by Provider: 12/08/17 19:40 Source: patient Mode of arrival: Ambulatory Limitations: No Limitations - History of Present Illness Initial Comments: Ms Kraus is a 57 year-old woman with hx of HTN, CHF with defibrillator, HTN who presents with chest pain. Chest pain that is chronic. Worse with moving, better with rest. No shortness of breath. Substernal without radiation. No leg swelling. Seen here 3 days ago for similar complaint. Normal catheterization in September 2017. Compliant with meds. Complaint: chest pain -: week(s) Pain Location: substernal Pain Radiation: none Severity: moderate Severity scale (0 -10): 8 Consistency: constant Improves With: rest Worsens With: exertion Treatments Prior to Arrival: none - Related Data Previous Rx's Medication Instructions Recorded Last Taken Type AtorvaSTATin [Lipitor] 40 mg PO QHS #30 tablet 08/15/16 09/24/17 Rx Carvedilol [Coreg] 25 mg PO BID #60 tablet 09/02/16 09/24/17 Rx Furosemide [Lasix TAB] 40 mg PO QDAY #30 tablet 09/02/16 09/24/17 Rx ALBUTEROL Inhaler [ProAir HFA 2 puff IH QID PRN #1 inhalation 06/28/17 Unknown Rx Inhaler] Aspirin [Aspirin BABY CHEW TAB] 81 mg PO QDAY #30 tab.chew 09/23/17 09/24/17 Rx Ferrous Sulfate 325 mg PO DAILY #30 tablet. 09/23/17 09/24/17 Rx ISOSORBIDE MONOnitrate [Imdur ER] 60 mg PO QDAY #30 tablet 09/24/17 09/24/17 Rx traMADol [Ultram 50 MG tab] 50 mg PO Q6HR PRN #20 tablet 10/17/17 Unknown Rx Acetaminophen [Acetaminophen TAB] 650 mg PO Q4H PRN #30 tablet 11/06/17 Unknown Rx Famotidine [Pepcid] 20 mg PO BID #60 tablet 11/06/17 Unknown Rx Lisinopril [Zestril TAB] 20 mg PO DAILY #30 11/06/17 09/24/17 Rx Rivaroxaban [Xarelto] 20 mg PO QDDIAB #30 tablet 11/06/17 Unknown Rx Sulfamethoxazole/Trimethoprim 1 each PO BID #14 tablet 11/06/17 Unknown Rx [Bactrim DS TAB] oxyCODONE /ACETAMINOPHEN [Percocet 1 tab PO Q6HR PRN #10 tablet 11/06/17 Unknown Rx 5/325 mg] risperiDONE [RisperiDONE] 1 mg PO DAILY #30 11/06/17 09/24/17 Rx Ranolazine [Ranexa] 500 mg PO BID #60 tab.er.12h 12/05/17 Unknown Rx Allergies Allergy/AdvReac Type Severity Reaction Status Date / Time codeine Allergy Hives Verified 06/15/14 05:41 Heart Score - HEART Score History: Moderately suspicious EKG: Normal Age: 45-65 Risk factors: > 3 risk factors or hx of atherosclerotic disease Troponin: < normal limit HEART Score: 4 ED Review of Systems ROS: Stated complaint: CHEST PAIN Other details as noted in HPI Comment: All other systems reviewed and negative ED Past Medical Hx - Past Medical History Previous Medical History?: Yes Hx Hypertension: Yes Hx Heart Attack/AMI: Yes (2003) Hx Congestive Heart Failure: Yes Hx Diabetes: Yes Hx Deep Vein Thrombosis: No Hx Seizures: No Hx Asthma: Yes Hx COPD: Yes Hx Dementia: Yes Additional medical history: CAD - Surgical History Past Surgical History?: Yes Hx Coronary Stent: Yes ((8) heart stents) Hx Pacemaker: No Hx Internal Defibrillator: No Additional Surgical History: HYSTERECTOMY - Social History Smoking Status: Never Smoker Substance Use Type: None - Medications Home Medications: Home Medications Medication Instructions Recorded Confirmed Last Taken Type AtorvaSTATin [Lipitor] 40 mg PO QHS #30 tablet 08/15/16 11/04/17 09/24/17 Rx Carvedilol [Coreg] 25 mg PO BID #60 tablet 09/02/16 11/04/17 09/24/17 Rx Furosemide [Lasix TAB] 40 mg PO QDAY #30 tablet 09/02/16 11/04/17 09/24/17 Rx ALBUTEROL Inhaler [ProAir HFA 2 puff IH QID PRN #1 inhalation 06/28/17 11/04/17 Unknown Rx Inhaler] Aspirin [Aspirin BABY CHEW TAB] 81 mg PO QDAY #30 tab.chew 09/23/17 11/04/1706/01 Rx Ferrous Sulfate 325 mg PO DAILY #30 tablet. 09/23/17 11/04/1709/24/18 Rx ISOSORBIDE MONOnitrate [Imdur ER] 60 mg PO QDAY #30 tablet 09/24/17 11/04/1706/01 Rx traMADol [Ultram 50 MG tab] 50 mg PO Q6HR PRN #20 tablet 10/17/17 11/04/17 Unknown Rx Acetaminophen [Acetaminophen TAB] 650 mg PO Q4H PRN #30 tablet 11/06/17 Unknown Rx Famotidine [Pepcid] 20 mg PO BID #60 tablet 11/06/17 Unknown Rx Lisinopril [Zestril TAB] 20 mg PO DAILY #30 11/06/17 11/04/17 09/24/17 Rx Rivaroxaban [Xarelto] 20 mg PO QDDIAB #30 tablet 11/06/17 Unknown Rx Sulfamethoxazole/Trimethoprim 1 each PO BID #14 tablet 11/06/17 Unknown Rx [Bactrim DS TAB] oxyCODONE /ACETAMINOPHEN [Percocet 1 tab PO Q6HR PRN #10 tablet 11/06/17 Unknown Rx 5/325 mg] risperiDONE [RisperiDONE] 1 mg PO DAILY #30 11/06/17 11/04/17 09/24/17 Rx Ranolazine [Ranexa] 500 mg PO BID #60 tab.er.12h 12/05/17 Unknown Rx ED Physical Exam - General Limitations: No Limitations General appearance: alert, in no apparent distress - Head Head exam: Present: atraumatic, normocephalic - Eye Eye exam: Present: normal appearance - ENT ENT exam: Present: mucous membranes moist - Neck Neck exam: Present: normal inspection - Respiratory Respiratory exam: Present: normal lung sounds bilaterally, other (left upper chest defibrillator/pacemaker). Absent: respiratory distress - Cardiovascular Cardiovascular Exam: Present: regular rate, normal rhythm, other (sternal ttp). Absent: systolic murmur, diastolic murmur, rubs, gallop - GI/Abdominal GI/Abdominal exam: Present: soft, normal bowel sounds - Extremities Exam Extremities exam: Present: normal inspection - Back Exam Back exam: Present: normal inspection - Neurological Exam Neurological exam: Present: alert, oriented X3 - Psychiatric Psychiatric exam: Present: normal affect, normal mood - Skin Skin exam: Present: warm, dry, intact, normal color. Absent: rash ED Course Vital Signs 12/08/17 12/08/17 12/08/17 04:47 09:00 16:51 Temperature 97.7 F 97.8 F 97.8 F Pulse Rate 98 H 95 H 102 H Respiratory 18 18 18 Rate Blood Pressure 166/94 169/109 160/88 Blood Pressure [Left] O2 Sat by Pulse 100 100 100 Oximetry 12/08/17 12/08/17 12/08/17 18:32 18:43 18:45 Temperature 97.8 F Pulse Rate 105 H 102 H 102 H Respiratory 24 18 25 H Rate Blood Pressure 157/82 Blood Pressure 175/99 [Left] O2 Sat by Pulse 100 100 Oximetry 12/08/17 12/08/17 12/08/17 19:00 19:30 19:45 Temperature Pulse Rate 107 H 101 H 100 H Respiratory 21 18 16 Rate Blood Pressure 157/83 138/69 138/72 Blood Pressure [Left] O2 Sat by Pulse 100 97 97 Oximetry 12/08/17 12/08/17 12/08/17 20:01 20:45 20:52 Temperature Pulse Rate 105 H 102 H Respiratory 22 24 16 Rate Blood Pressure 172/93 167/94 Blood Pressure [Left] O2 Sat by Pulse 100 100 Oximetry 12/08/17 12/08/17 12/08/17 21:01 21:15 21:22 Temperature Pulse Rate Respiratory 16 Rate Blood Pressure 171/97 155/79 Blood Pressure [Left] O2 Sat by Pulse 100 100 Oximetry 12/08/17 21:31 Temperature Pulse Rate Respiratory Rate Blood Pressure 153/76 Blood Pressure [Left] O2 Sat by Pulse 96 Oximetry YANICK score - Yanick Score Age > 65: (0) No Aspirin use within the Past 7 Days: (1) Yes 3 or more CAD Risk Factors: (1) Yes 2 or more Angina events in past 24 hrs: (0) No Known CAD with more than 50% Stenosis: (1) Yes Elevated Cardiac Markers: (0) No ST Deviation Greater than 0.5mm: (0) No YANICK Score: 3 ED Medical Decision Making - Lab Data Result diagrams: 12/08/17 09:37 12/08/17 09:37 Lab Results 12/08/17 12/08/17 12/08/17 Range/Units 09:37 09:37 09:37 WBC 7.7 (4.5-11.0) K/mm3 RBC 3.84 (3.65-5.03) M/mm3 Hgb 10.8 (10.1-14.3) gm/dl Hct 34.2 (30.3-42.9) % MCV 89 (79-97) fl MCH 28 (28-32) pg MCHC 32 (30-34) % RDW 19.3 H (13.2-15.2) % Plt Count 246 (140-440) K/mm3 Lymph % (Auto) 17.2 (13.4-35.0) % [place] % (Auto) 7.5 H (0.0-7.3) % Eos % (Auto) 0.9 (0.0-4.3) % Baso % (Auto) 0.6 (0.0-1.8) % Lymph # 1.3 (1.2-5.4) K/mm3 [place] # 0.6 (0.0-0.8) K/mm3 Eos # 0.1 (0.0-0.4) K/mm3 Baso # 0.0 (0.0-0.1) K/mm3 Seg Neutrophils % 73.8 H (40.0-70.0) % Seg Neutrophils # 5.7 (1.8-7.7) K/mm3 PT 12.3 (12.2-14.9) Sec. INR 0.87 (0.87-1.13) APTT 31.2 (24.2-36.6) Sec. Sodium 132 L (137-145) mmol/L Potassium 4.9 (3.6-5.0) mmol/L Chloride 95.9 L (98-107) mmol/L Carbon Dioxide 21 L (22-30) mmol/L Anion Gap 20 mmol/L BUN 15 (7-17) mg/dL Creatinine 1.0 (0.7-1.2) mg/dL Estimated GFR > 60 ml/min BUN/Creatinine Ratio 15 % Glucose 414 H (65-100) mg/dL POC Glucose (70-105) Calcium 9.2 (8.4-10.2) mg/dL Troponin T < 0.010 (0.00-0.029) ng/mL 12/08/17 12/08/17 12/08/17 Range/Units 13:16 14:50 16:55 WBC (4.5-11.0) K/mm3 RBC (3.65-5.03) M/mm3 Hgb (10.1-14.3) gm/dl Hct (30.3-42.9) % MCV (79-97) fl MCH (28-32) pg MCHC (30-34) % RDW (13.2-15.2) % Plt Count (140-440) K/mm3 Lymph % (Auto) (13.4-35.0) % [place] % (Auto) (0.0-7.3) % Eos % (Auto) (0.0-4.3) % Baso % (Auto) (0.0-1.8) % Lymph # (1.2-5.4) K/mm3 [place] # (0.0-0.8) K/mm3 Eos # (0.0-0.4) K/mm3 Baso # (0.0-0.1) K/mm3 Seg Neutrophils % (40.0-70.0) % Seg Neutrophils # (1.8-7.7) K/mm3 PT (12.2-14.9) Sec. INR (0.87-1.13) APTT (24.2-36.6) Sec. Sodium (137-145) mmol/L Potassium (3.6-5.0) mmol/L Chloride (98-107) mmol/L Carbon Dioxide (22-30) mmol/L Anion Gap mmol/L BUN (7-17) mg/dL Creatinine (0.7-1.2) mg/dL Estimated GFR ml/min BUN/Creatinine Ratio % Glucose (65-100) mg/dL POC Glucose 438 H (70-105) Calcium (8.4-10.2) mg/dL Troponin T < 0.010 < 0.010 (0.00-0.029) ng/mL 12/08/17 12/08/17 Range/Units 20:14 21:46 WBC (4.5-11.0) K/mm3 RBC (3.65-5.03) M/mm3 Hgb (10.1-14.3) gm/dl Hct (30.3-42.9) % MCV (79-97) fl MCH (28-32) pg MCHC (30-34) % RDW (13.2-15.2) % Plt Count (140-440) K/mm3 Lymph % (Auto) (13.4-35.0) % [place] % (Auto) (0.0-7.3) % Eos % (Auto) (0.0-4.3) % Baso % (Auto) (0.0-1.8) % Lymph # (1.2-5.4) K/mm3 [place] # (0.0-0.8) K/mm3 Eos # (0.0-0.4) K/mm3 Baso # (0.0-0.1) K/mm3 Seg Neutrophils % (40.0-70.0) % Seg Neutrophils # (1.8-7.7) K/mm3 PT (12.2-14.9) Sec. INR (0.87-1.13) APTT (24.2-36.6) Sec. Sodium (137-145) mmol/L Potassium (3.6-5.0) mmol/L Chloride (98-107) mmol/L Carbon Dioxide (22-30) mmol/L Anion Gap mmol/L BUN (7-17) mg/dL Creatinine (0.7-1.2) mg/dL Estimated GFR ml/min BUN/Creatinine Ratio % Glucose (65-100) mg/dL POC Glucose 457 H 411 H (70-105) Calcium (8.4-10.2) mg/dL Troponin T (0.00-0.029) ng/mL - EKG Data 0458: HR 95, sinus, normal axis, QRS 117 c/w incomplete LBBB, no St changes concerning for acute ischemia 1723: HR 97, sinus, normal axis, QRS 115, no ST changes concerning for acute ischemia - Radiology Data Radiology results: report reviewed, image reviewed - Medical Decision Making Ms Kraus is a 57 year-old woman who presents with chronic chest pain. Substernal , better with rest, worse with exertion. Non-obstructive catheterization in September. Has been here since early this morning. Initial reported that the aspirin helped the pain. Suspect this is chronic msk pain vs angina vs GERD vs PNA vs PTX. CXR clear. Labs wnl, trop neg x 3. EKG non-ischemic x 2. Pain significantly improved with toradol, IM. Patient feels comfortable following up with her PCP next week. Given care instructions and return precautions. Reproducible pain, improved with NSAIDs, negative cath 2 months ago, negative trops, non-ischemic EKGs, safe for dc to home. Critical care attestation.: If time is entered above; I have spent that time in minutes in the direct care of this critically ill patient, excluding procedure time. ED Disposition Clinical Impression: Chest pain Qualifiers: Chest pain type: other chest pain Qualified Code(s): R07.89 - Other chest pain ; R07.8 - Other chest pain Disposition: DC-01 TO HOME OR SELFCARE Is pt being admited?: No Condition: Stable Instructions: Chest Pain (ED) Referrals: HEENA LEIVA [Other] - 3-5 Days
[2017-12-08] MEDS ORDERED: ASPIRIN ONE (20:19)
[2017-12-08] MEDS ORDERED: TORADOL IV ONE (20:25)
--- NOTE | 2017-12-08 21:54 | XRay Report ---
FINAL REPORT PROCEDURE: XR CHEST ROUTINE 2V TECHNIQUE: PA and lateral chest radiographs were obtained. CPT 68361 HISTORY: chest pain COMPARISON: 09/24/2017 FINDINGS: Heart: Prominent cardiac silhouette. Mediastinum/Vessels: Normal. Lungs/Pleural space: No infiltrate, effusion, or pneumothorax. Bony thorax: No acute osseous abnormality. Other: Left AICD IMPRESSION: Prominent cardiac silhouette. No pulmonary infiltrates.
[2017-12-08 23:56] VITALS: BP 153/84
== END 2017-12-08 23:55 | disposition home or self-care (01) ==
LOC: ED 04:48
DX: R07.89 Other chest pain (principal); I10 Essential (primary) hypertension; I50.9 Heart failure, unspecified; E11.9 Type 2 diabetes mellitus without complications; J45.909 Unspecified asthma, uncomplicated; Z90.710 Acquired absence of both cervix and uterus; Z95.1 Presence of aortocoronary bypass graft; Z79.82 Long term (current) use of aspirin; Z88.5 Allergy status to narcotic agent
CPT/HCPCS: 36415; 71046; 80048; 82962; 84484; 85025; 85610; 85730; 93005; 93010; 96372; 96374; 99284; J1885; J7030; J1815

== ENCOUNTER 2018-02-27 05:38 | Inpatient (IN) | payer MEDICAID ==
[2018-02-27 07:17] LABS: Basophils % (Auto) 0.7 % (0.0-1.8); Eosinophils # (Auto) 0.2 K/mm3 (0.0-0.4); Hematocrit 26.7 % (30.3-42.9); Hemoglobin 8.6 gm/dl (10.1-14.3); Lymphocytes # (Auto) 1.2 K/mm3 (1.2-5.4); Lymphocytes % (Auto) 18.4 % (13.4-35.0); Mean Corpuscular HGB Conc 32 % (30-34); Mean Corpuscular Hemoglobin 31 pg (28-32); Mean Corpuscular Volume 95 fl (79-97); Monocytes # (Auto) 0.5 K/mm3 (0.0-0.8); Monocytes % (Auto) 7.8 % (0.0-7.3); Platelet Count 202 K/mm3 (140-440); Red Blood Count 2.83 M/mm3 (3.65-5.03)
[2018-02-27 07:31] LABS: BUN/Creatinine Ratio 18; Blood Urea Nitrogen 25 mg/dL (7-17); Hemolysis Index 34; Red Cell Distribution Width 22.7 % (13.2-15.2)
[2018-02-27] MEDS ORDERED: HumuLIN R IV ONE (09:44)
[2018-02-27] MEDS ORDERED: NACL 0.9% 1000 ML 1,000 ML IV ONE (09:44)
--- NOTE | 2018-02-27 10:31 | Emergency Department Report ---
ED General Adult HPI - General Chief complaint: Chest Pain Stated complaint: CHEST PAIN Time Seen by Provider: 02/27/18 09:40 Source: patient Mode of arrival: Ambulatory Limitations: No Limitations - History of Present Illness Initial comments: 87-year-old female who is a poor historian. She was admitted to this facility last in December for chest pain. Her past medical history includes the following per previous cardiology note: - Patient Problems (1) Chest pain Current Visit: Yes Status: Acute (2) CAD (coronary artery disease) Current Visit: Yes Status: Chronic (3) Stented coronary artery Current Visit: Yes Status: Chronic (4) Ischemic cardiomyopathy Current Visit: Yes Status: Chronic (5) Automatic implantable cardioverter-defibrillator in situ Current Visit: Yes Status: Chronic (6) HTN (hypertension) Current Visit: Yes Status: Chronic Qualifiers: (7) Diabetes mellitus Current Visit: Yes Status: Chronic Qualifiers: Diabetes mellitus type: type 2 Diabetes mellitus fci insulin use: unspecified fci insulin use status Diabetes mellitus complication status : without complication Qualified Code(s): E11.9 - Type 2 diabetes mellitus without complications (8) Hyperlipidemia Current Visit: Yes Status: Chronic (9) Anemia Current Visit: Yes Status: Chronic (10) History of pulmonary embolism Current Visit: No Status: Chronic She had a PTCA here. Despite this documented history of pulmonary embolism the patient states that she has never had a blood clot. She states that she sees a lead caregiver at [facility]. She has apparently received a lot of care here. She states she has not been [place] since her discharge. I am trying to verify if she is taking her Zaroxolyn. I do that a CTA was performed on her prior admission and was negative for pulmonary embolism. The patient's chief complaint today is right sided chest pain which somewhat radiates to her arm. She states that she has some tenderness in her chest when she moves and some discomfort when she breathes deeply. She is coughing up "phlegm". She has noted no hemoptysis. She states that she had a temperature of 101 yesterday and the day before. She is not reporting shaking chills. She denies any leg pain or recent travel. -: Gradual, days(s) Location: chest Radiation: extremity Quality: aching Consistency: intermittent Improves with: none Worsens with: movement Associated Symptoms: cough, fever/chills Treatments Prior to Arrival: none - Related Data Previous Rx's Medication Instructions Recorded Last Taken Type AtorvaSTATin [Lipitor] 40 mg PO QHS #30 tablet 08/15/16 09/24/17 Rx Carvedilol [Coreg] 25 mg PO BID #60 tablet 09/02/16 09/24/17 Rx Furosemide [Lasix TAB] 40 mg PO QDAY #30 tablet 09/02/16 09/24/17 Rx ALBUTEROL Inhaler (OR & NICU) 2 puff IH QID PRN #1 inhalation 06/28/17 Unknown Rx [ProAir HFA Inhaler] Aspirin [Aspirin BABY CHEW TAB] 81 mg PO QDAY #30 tab.chew 09/23/17 09/24/17 Rx Ferrous Sulfate 325 mg PO DAILY #30 tablet. 09/23/17 09/24/17 Rx Acetaminophen [Acetaminophen TAB] 650 mg PO Q4H PRN #30 tablet 11/06/17 Unknown Rx Famotidine [Pepcid] 20 mg PO BID #60 tablet 11/06/17 Unknown Rx Ferrous Sulfate [Feosol 325 MG tab] 325 mg PO QDAY tablet 12/24/17 Unknown Rx ISOSORBIDE MONOnitrate [Imdur ER] 30 mg PO QDAY #30 tablet 12/24/17 Unknown Rx Lisinopril [Zestril TAB] 20 mg PO DAILY #30 tablet 12/24/17 Unknown Rx Ranolazine [Ranexa] 500 mg PO BID #60 tab.er.12h 12/24/17 Unknown Rx Rivaroxaban [Xarelto] 20 mg PO QDAY #30 tablet 12/24/17 Unknown Rx risperiDONE [RisperiDONE] 1 mg PO DAILY #30 tablet 12/24/17 Unknown Rx Allergies Allergy/AdvReac Type Severity Reaction Status Date / Time codeine Allergy Hives Verified 06/15/14 05:41 ED Review of Systems ROS: Stated complaint: CHEST PAIN Other details as noted in HPI Constitutional: denies: chills, fever Eyes: denies: eye pain, eye discharge, vision change ENT: denies: ear pain, throat pain Respiratory: cough. denies: shortness of breath, wheezing Cardiovascular: chest pain. denies: palpitations Endocrine: no symptoms reported Gastrointestinal: denies: abdominal pain, nausea, diarrhea Genitourinary: denies: urgency, dysuria, discharge Musculoskeletal: denies: back pain, joint swelling, arthralgia Skin: denies: rash, lesions Neurological: denies: headache, weakness, paresthesias Psychiatric: denies: anxiety, depression Hematological/Lymphatic: denies: easy bleeding, easy bruising ED Past Medical Hx - Past Medical History Previous Medical History?: Yes Hx Hypertension: Yes Hx Heart Attack/AMI: Yes (2003) Hx Congestive Heart Failure: Yes Hx Diabetes: Yes Hx Deep Vein Thrombosis: No Hx Seizures: No Hx Asthma: Yes Hx COPD: Yes Hx Dementia: Yes Additional medical history: CAD - Surgical History Past Surgical History?: Yes Hx Coronary Stent: Yes ((8) heart stents) Hx Pacemaker: No Hx Internal Defibrillator: No Additional Surgical History: HYSTERECTOMY - Social History Smoking Status: Never Smoker Substance Use Type: None - Medications Home Medications: Home Medications Medication Instructions Recorded Confirmed Last Taken Type AtorvaSTATin [Lipitor] 40 mg PO QHS #30 tablet 08/15/16 12/23/17 09/24/17 Rx Carvedilol [Coreg] 25 mg PO BID #60 tablet 09/02/16 12/23/17 09/24/17 Rx Furosemide [Lasix TAB] 40 mg PO QDAY #30 tablet 09/02/16 12/23/17 09/24/17 Rx ALBUTEROL Inhaler (OR & NICU) 2 puff IH QID PRN #1 inhalation 06/28/17 12/23/17 Unknown Rx [ProAir HFA Inhaler] Aspirin [Aspirin BABY CHEW TAB] 81 mg PO QDAY #30 tab.chew 09/23/17 12/23/1706/01 Rx Ferrous Sulfate 325 mg PO DAILY #30 tablet. 09/23/17 12/23/17 09/24/17 Rx Acetaminophen [Acetaminophen TAB] 650 mg PO Q4H PRN #30 tablet 11/06/17 Unknown Rx Famotidine [Pepcid] 20 mg PO BID #60 tablet 11/06/17 12/23/17 Unknown Rx Ferrous Sulfate [Feosol 325 MG tab] 325 mg PO QDAY tablet 12/24/17 Unknown Rx ISOSORBIDE MONOnitrate [Imdur ER] 30 mg PO QDAY #30 tablet 12/24/17 Unknown Rx Lisinopril [Zestril TAB] 20 mg PO DAILY #30 tablet 12/24/17 Unknown Rx Ranolazine [Ranexa] 500 mg PO BID #60 tab.er.12h 12/24/17 Unknown Rx Rivaroxaban [Xarelto] 20 mg PO QDAY #30 tablet 12/24/17 Unknown Rx risperiDONE [RisperiDONE] 1 mg PO DAILY #30 tablet 12/24/17 Unknown Rx ED Physical Exam - General Limitations: No Limitations General appearance: alert, in no apparent distress - Head Head exam: Present: atraumatic, normocephalic - Eye Eye exam: Present: normal appearance. Absent: scleral icterus - ENT ENT exam: Present: mucous membranes moist - Neck Neck exam: Present: normal inspection. Absent: tenderness, meningismus - Respiratory Respiratory exam: Present: normal lung sounds bilaterally. Absent: respiratory distress - Cardiovascular Cardiovascular Exam: Present: regular rate, normal rhythm. Absent: systolic murmur, diastolic murmur, rubs, gallop - GI/Abdominal GI/Abdominal exam: Present: soft, normal bowel sounds. Absent: distended, tenderness, guarding, rebound, rigid - Extremities Exam Extremities exam: Present: other (once 2+ pretibial edema bilaterally). Absent : calf tenderness - Back Exam Back exam: Present: normal inspection - Neurological Exam Neurological exam: Present: alert, oriented X3, CN II-XII intact. Absent: motor sensory deficit - Psychiatric Psychiatric exam: Present: normal affect, normal mood - Skin Skin exam: Present: warm, dry, intact, normal color. Absent: rash ED Course Vital Signs 02/27/18 02/27/18 02/27/18 05:55 05:57 08:08 Temperature 97.9 F 97.9 F Pulse Rate 86 87 Respiratory 14 17 Rate Blood Pressure 168/93 168/93 O2 Sat by Pulse 100 100 86 Oximetry 02/27/18 08:15 Temperature Pulse Rate 88 Respiratory 22 Rate Blood Pressure 185/104 O2 Sat by Pulse 100 Oximetry - Reevaluation(s) Reevaluation #1: I ordered blood cultures and a lactic acid level. The patient is somewhat prerenal and her creatinine has been from 1-1.4. I'm going to order a VQ scan. We are going to verify as to whether she is taking hers around toe or not. The nurses reconciling her medications. She was given insulin and IV fluids. Patient has last taken this around toe yesterday. I believe this may be continued. 02/27/18 10:28 Reevaluation #2: Discussed the patient's presentation with the hospitalist. She will be admitted by Dr. Weston to telemetry. 02/27/18 10:31 ED Medical Decision Making - Lab Data Result diagrams: 02/27/18 06:17 02/27/18 06:17 Laboratory Results - last 24 hr 02/27/18 02/27/18 02/27/18 06:17 06:17 08:41 WBC 6.6 RBC 2.83 L Hgb 8.6 L Hct 26.7 L MCV 95 MCH 31 MCHC 32 RDW 22.7 H Plt Count 202 Lymph % (Auto) 18.4 [place] % (Auto) 7.8 H Eos % (Auto) 3.0 Baso % (Auto) 0.7 Lymph # 1.2 [place] # 0.5 Eos # 0.2 Baso # 0.0 Seg Neutrophils % 70.1 H Seg Neutrophils # 4.6 Sodium 136 L Potassium 4.0 Chloride 97.5 L Carbon Dioxide 23 Anion Gap 20 BUN 25 H Creatinine 1.4 H Estimated GFR 47 BUN/Creatinine Ratio 18 Glucose 340 H Calcium 9.0 Magnesium Troponin T < 0.010 < 0.010 NT-Pro-B Natriuret Pep 02/27/18 09:44 WBC RBC Hgb Hct MCV MCH MCHC RDW Plt Count Lymph % (Auto) [place] % (Auto) Eos % (Auto) Baso % (Auto) Lymph # [place] # Eos # Baso # Seg Neutrophils % Seg Neutrophils # Sodium Potassium Chloride Carbon Dioxide Anion Gap BUN Creatinine Estimated GFR BUN/Creatinine Ratio Glucose Calcium Magnesium 1.70 Troponin T NT-Pro-B Natriuret Pep 5622 H - EKG Data -: EKG Interpreted by Ak EKG shows normal: sinus rhythm, axis, intervals, ST-T waves - EKG Data Interpretation: other (incomplete left bundle-branch block somewhat low voltage nonspecific ST-T wave changes inferior Q's. No real evidence of acute ischemia) Critical care attestation.: If time is entered above; I have spent that time in minutes in the direct care of this critically ill patient, excluding procedure time. ED Disposition Clinical Impression: Febrile respiratory illness, Prerenal azotemia, Ischemic cardiomyopathy Chest pain Qualifiers: Chest pain type: unspecified Qualified Code(s): R07.9 - Chest pain, unspecified Uncontrolled diabetes mellitus with hyperglycemia Qualifiers: Diabetes mellitus type: type 2 Qualified Code(s): E11.65 - Type 2 diabetes mellitus with hyperglycemia Anemia Qualifiers: Anemia type: unspecified type Qualified Code(s): D64.9 - Anemia, unspecified Disposition: 09 OP ADMIT IP TO THIS HOSP Is pt being admited?: Yes Does the pt Need Aspirin: Yes Condition: Stable Instructions: Chest Pain (ED), Diabetes Mellitus Type 2 in Adults (ED) Referrals: JESSIE LEIVA [Other] - 3-5 Days Time of Disposition: 10:35
[2018-02-27] MEDS ORDERED: BABY ASPIRIN PO ONE (10:35)
[2018-02-27] MEDS ORDERED: ZOSYN/NS 3.375GM/50ML 3.375 GM/50 ML BAG IV ONE (10:36)
[2018-02-27 10:43] LABS: Bilirubin,Urine NEG (Negative); Blood,Urine NEG (Negative); Color,Urine Straw (Yellow); Protein,Urine <15 mg/dL mg/dL (Negative); RBC,Urine < 1.0 /HPF (0.0-6.0); Urobilinogen,Urine < 2.0 mg/dL (<2.0)
--- NOTE | 2018-02-27 10:44 | XRay Report ---
FINAL REPORT EXAM: XR CHEST 1V AP HISTORY: hypertension COMPARISON: Chest radiograph performed on 12/08/2017 TECHNIQUE: Single frontal view of the chest FINDINGS: Left-sided defibrillator is unchanged in position. Stable cardiomegaly. The lungs are clear without focal consolidation. There is no pleural effusion or pneumothorax. There is no acute soft tissue or osseous abnormality. IMPRESSION: No acute cardiopulmonary disease. Stable cardiomegaly.
[2018-02-27 11:14] LABS: Albumin 4.2 g/dL (3.9-5)
[2018-02-27 11:27] LABS: Bilirubin,Direct 0.2 mg/dL (0-0.2)
--- NOTE | 2018-02-27 11:53 | Nuclear Medicine Report ---
FINAL REPORT EXAM: NM LUNG SCAN PERF/VENT HISTORY: r sided CP TECHNIQUE: Ventilation perfusion lung scan was performed. Ventilation dosage: 15 mCi xenon 133 aerosol Perfusion dosage: 5 mCi technetium 99 M MAA IV PRIORS: None. FINDINGS: Ventilation images demonstrate normal wash-in and washout of radiotracer. No ventilation defects seen. Perfusion images are mildly heterogeneous. Left lateral image demonstrates a posterior possibly segmental defect. This is intermediate size. Findings are compatible with intermediate probability of pulmonary embolus. IMPRESSION: Intermediate probability of pulmonary embolus. Moderate-size possibly segmental defect in posterior left lung, probably superior segment of left lower lobe.
[2018-02-27 11:55] LABS: INR 1.17 (0.87-1.13)
[2018-02-27 11:56] LABS: Partial Thromboplastin Time 34.3 Sec. (24.2-36.6)
[2018-02-27] MEDS ORDERED: ZOFRAN IV PRN (12:14)
[2018-02-27] MEDS ORDERED: SODIUM CHLORIDE FLUSH SYRINGE 10 ML IV PRN (12:14)
--- NOTE | 2018-02-27 12:25 | History and Physical Report ---
History of Present Illness Date of examination: 02/27/18 Date of admission: 02/27/18 Chief complaint: chest pain History of present illness: 57 y/o female with h/o CAD, diabetes, heart failure, hypertension, hyperlipidemia, pulmonary embolism on xarelto presented with complaint of right sided chest pain with tenderness with radiation to her arm. Her chest pain worsen when she breathes deeply. She states that she is coughing up "phlegm" and had a temperature of 101 yesterday and the day before. She denies any rigor or chills. She denies any leg pain or recent travel. Her CE normal and no specific changes on EKG. VQ scan showed intermediate probability for PE. She is getting admitted for further evaluation and management. Past History Past Medical History: CAD, diabetes, heart failure, hypertension, hyperlipidemia , pulmonary embolism, other (pulm HTN) Past Surgical History: PTCA, Other (AICD in situ) Social history: no significant social history Family history: no significant family history Review of System: Constitutional: no fever, no chills, no weight loss Ears, eyes, nose, mouth and throat: no nasal congestion, no nasal discharge, no sinus pressure, no vision change, no red eye. Neck: No neck pain or rigidity. Cardiovascular: + chest pain, no orthopnea, no palpitations, no leg swelling Respiratory: +shortness of breath, no cough, no congestion, no wheezing Gastrointestinal: no abdominal pain, no nausea, no vomiting Genitourinary : no dysuria, no hematuria Musculoskeletal: no joint swelling or muscle ache Integumentary: no rash, no pruritis Neurological: no parathesias, no numbness, no tingling Endocrine: no cold or heat intolerance, no polyuria or polydipsia Hematologic/Lymphatic: no easy bruising, no easy bleeding, no gland swelling Allergic/Immunologic: no urticaria, no angioedema. Medications and Allergies Allergies Allergy/AdvReac Type Severity Reaction Status Date / Time codeine Allergy Hives Verified 06/15/14 05:41 Home Medications Medication Instructions Recorded Confirmed Last Taken Type AtorvaSTATin [Lipitor] 40 mg PO QHS #30 tablet 08/15/16 02/27/18 02/26/18 Rx Carvedilol [Coreg] 25 mg PO BID #60 tablet 09/02/16 02/27/18 02/26/18 Rx Furosemide [Lasix TAB] 40 mg PO QDAY #30 tablet 09/02/16 02/27/18 02/26/18 Rx ALBUTEROL Inhaler (OR & NICU) 2 puff IH QID PRN #1 inhalation 06/28/17 02/27/18 Unknown Rx [ProAir HFA Inhaler] Aspirin [Aspirin BABY CHEW TAB] 81 mg PO QDAY #30 tab.chew 09/23/17 02/27/18 Rx Ferrous Sulfate 325 mg PO DAILY #30 tablet.dr 09/23/17 02/27/18 02/26/18 Rx Acetaminophen [Acetaminophen TAB] 650 mg PO Q4H PRN #30 tablet 11/06/17 Unknown Rx Famotidine [Pepcid] 20 mg PO BID #60 tablet 11/06/17 12/23/17 Unknown Rx Ferrous Sulfate [Feosol 325 MG tab] 325 mg PO QDAY tablet 12/24/17 02/27/18 Rx ISOSORBIDE MONOnitrate [Imdur ER] 30 mg PO QDAY #30 tablet 12/24/17 Unknown Rx Ranolazine [Ranexa] 500 mg PO BID #60 tab.er.12h 12/24/17 02/27/18 02/26/18 Rx Rivaroxaban [Xarelto] 20 mg PO QDAY #30 tablet 12/24/17 02/27/18 02/26/18 Rx risperiDONE [RisperiDONE] 1 mg PO DAILY #30 tablet 12/24/17 02/27/18 02/26/18 Rx Lisinopril [Zestril TAB] 40 mg PO DAILY 02/27/18 02/27/18 02/26/18 History Active Meds: Active Medications Acetaminophen (Tylenol) 650 mg PO Q4H PRN PRN Reason: Pain MILD(1-3)/Fever >100.5/[place] Enoxaparin Sodium (Lovenox) 60 mg 1 mg/kg (60 mg) SUB-Q Q12HR ROMY Sodium Chloride (Nacl 0.9% 1000 Ml) 1,000 mls @ 125 mls/hr IV ONCE ONE Stop: 02/27/18 17:43 Last Admin: 02/27/18 11:50 Dose: 125 mls/hr Dextrose/Sodium Chloride (D5/0.45ns) 1,000 mls @ 75 mls/hr IV DIRECT ROMY Ondansetron HCl (Zofran) 4 mg IV Q8H PRN PRN Reason: Nausea And Vomiting Sodium Chloride (Sodium Chloride Flush Syringe 10 Ml) 10 ml IV BID ROMY Sodium Chloride (Sodium Chloride Flush Syringe 10 Ml) 10 ml IV PRN PRN PRN Reason: LINE FLUSH Exam - Physical Exam Narrative exam: GENERAL: well-developed and well-nourished lying on bed appeared to be in no discomfort. HEENT: Normocephalic. Atraumatic. No conjunctival congestion or icterus. Patient has moist mucous membranes. NECK: Supple. Trachea midline. CHEST/LUNGS: Clear to auscultated bilaterally, breathing nonlabored. No wheezes crackles or rhonchi. HEART/CARDIOVASCULAR: Regular in rate and rhythm. S1 and S2 positive. ABDOMEN: Abdomen is soft, nontender. Patient has normal bowel sounds. SKIN: There is no rash. Warm and dry. NEURO: No focal motor deficit. Follows command. MUSCULOSKELETAL: No joint effusion or tenderness. EXTRIMITY: No edema, no cyanosis or clubbing. PSYCH: Cooperative. - Constitutional Vitals: Temp Pulse Resp BP Pulse Ox 97.9 F 88 22 185/104 100 02/27/18 05:57 02/27/18 08:15 02/27/18 08:15 02/27/18 08:15 02/27/18 08:15 Results - Labs CBC & Chem 7: 02/27/18 06:17 02/27/18 06:17 Labs: Abnormal lab results 02/27/18 02/27/18 02/27/18 Range/Units 06:17 06:17 09:44 RBC 2.83 L (3.65-5.03) M/mm3 Hgb 8.6 L (10.1-14.3) gm/dl Hct 26.7 L (30.3-42.9) % RDW 22.7 H (13.2-15.2) % [place] % (Auto) 7.8 H (0.0-7.3) % Seg Neutrophils % 70.1 H (40.0-70.0) % PT 15.6 H (12.2-14.9) Sec. INR 1.17 H (0.87-1.13) Sodium 136 L (137-145) mmol/L Chloride 97.5 L (98-107) mmol/L BUN 25 H (7-17) mg/dL Creatinine 1.4 H (0.7-1.2) mg/dL Glucose 340 H (65-100) mg/dL AST (5-40) units/L Alkaline Phosphatase (35-129) units/L NT-Pro-B Natriuret Pep (0-900) pg/mL 02/27/18 02/27/18 Range/Units 09:44 09:44 RBC (3.65-5.03) M/mm3 Hgb (10.1-14.3) gm/dl Hct (30.3-42.9) % RDW (13.2-15.2) % [place] % (Auto) (0.0-7.3) % Seg Neutrophils % (40.0-70.0) % PT (12.2-14.9) Sec. INR (0.87-1.13) Sodium (137-145) mmol/L Chloride (98-107) mmol/L BUN (7-17) mg/dL Creatinine (0.7-1.2) mg/dL Glucose (65-100) mg/dL AST 43 H (5-40) units/L Alkaline Phosphatase 236 H (35-129) units/L NT-Pro-B Natriuret Pep 5622 H (0-900) pg/mL - Imaging and Cardiology Chest x-ray: report reviewed Assessment and Plan Chest pain, rightsided, - likely costrochondritis vs PE - trend CE CAD s/p cardiac stents, recent Cardiac cath on 09/23/2017 (nonobstructive CAD), CHF, EF 25-30% with ICD, - cont statin, BB H/o PE on Xarelto, unsure about compliance - - VQ scan suggested for intermediate possibility for PE (Recent CTA during prior admission was negative for PE) - will repeat CTA chest if renal function improves, cont xarelto HTN, uncontrolled - resumed home meds, adjust as needed Uncontrolled DM, a1c 12.6 on 10/30 - diabetic diet, home insulin dose HUSEYIN, likely vasomotor nephropathy - follow renal function Dvt px, xarelto Radiological data: Pulmonary VQ scan: Intermediate probability of pulmonary embolus. Moderate-size possibly segmental defect in posterior left lung, probably superior segment of left lower lobe. CXR; No acute cardiopulmonary disease.
[2018-02-27] MEDS ORDERED: TYLENOL PO PRN (12:29)
[2018-02-27] MEDS ORDERED: PROAIR IH PRN (12:29)
[2018-02-27] MEDS ORDERED: PROVENTIL IH PRN (12:49)
[2018-02-27] MEDS ORDERED: ZESTRIL PO SCH (13:00)
[2018-02-27] MEDS ORDERED: LOVENOX SUB-Q SCH (13:00)
[2018-02-27] MEDS: HumuLIN R SUB-Q SCH ×3 (13:30→22:00)
[2018-02-27] MEDS: TYLENOL PO PRN ×2 (14:14→21:37)
[2018-02-27] MEDS: LOVENOX SUB-Q SCH (14:14)
[2018-02-27] MEDS: IMDUR PO SCH (14:15)
[2018-02-27] MEDS: RANEXA ER PO SCH ×2 (17:02→21:36)
[2018-02-27] MEDS: RisperDAL PO SCH (17:03)
[2018-02-27] MEDS: D5/0.45NS 1,000 ML IV SCH (17:04)
[2018-02-27] MEDS: PEPCID PO SCH (21:36)
[2018-02-27] MEDS: COREG PO SCH (21:36)
[2018-02-27] MEDS: SODIUM CHLORIDE FLUSH SYRINGE 10 ML IV SCH (21:36)
--- NOTE | 2018-02-27 22:37 | Consultation ---
History of Present Illness Consult date: 02/27/18 History of present illness: PULMONARY CONSULTATION DR. SALDANA THANK YOU FOR ASKING US TO PARTICIPATE IN THE CARE OF THIS PATIENT. Patient admitted with right sided chest pain which somewhat radiates to her arm. she has some tenderness in her chest when she moves and some discomfort when she breathes deeply. She is coughing up "phlegm". She has noted no hemoptysis. She states that she had a temperature of 101 yesterday and the day before. She is not reporting shaking chills. She denies any leg pain or recent travel.Patient has history CHF, CAD, diabetes, Hypertension, hyperlipidemia, pulmonary embolism, other (pulm HTN) Past Surgical History: PTCA, Other (AICD in situ) Unable to get furthur history, Patient sleeping at this time on room air.O2 saturation 100%. No acute respiratory distress. Past History Past Medical History: CAD, heart failure, hypertension, hyperlipidemia, pulmonary embolism Medications and Allergies Allergies Allergy/AdvReac Type Severity Reaction Status Date / Time codeine Allergy Hives Verified 06/15/14 05:41 Home Medications Medication Instructions Recorded Confirmed Last Taken Type AtorvaSTATin [Lipitor] 40 mg PO QHS #30 tablet 08/15/16 02/27/18 02/26/18 Rx Carvedilol [Coreg] 25 mg PO BID #60 tablet 09/02/16 02/27/18 02/26/18 Rx Furosemide [Lasix TAB] 40 mg PO QDAY #30 tablet 09/02/16 02/27/18 02/26/18 Rx ALBUTEROL Inhaler (OR & NICU) 2 puff IH QID PRN #1 inhalation 06/28/17 02/27/18 Unknown Rx [ProAir HFA Inhaler] Aspirin [Aspirin BABY CHEW TAB] 81 mg PO QDAY #30 tab.chew 09/23/17 02/27/18 Rx Ferrous Sulfate 325 mg PO DAILY #30 tablet. 09/23/17 02/27/18 02/26/18 Rx Acetaminophen [Acetaminophen TAB] 650 mg PO Q4H PRN #30 tablet 11/06/17 Unknown Rx Famotidine [Pepcid] 20 mg PO BID #60 tablet 11/06/17 12/23/17 Unknown Rx Ferrous Sulfate [Feosol 325 MG tab] 325 mg PO QDAY tablet 12/24/17 02/27/18 Rx ISOSORBIDE MONOnitrate [Imdur ER] 30 mg PO QDAY #30 tablet 12/24/17 Unknown Rx Ranolazine [Ranexa] 500 mg PO BID #60 tab.er.12h 12/24/17 02/27/18 02/26/18 Rx Rivaroxaban [Xarelto] 20 mg PO QDAY #30 tablet 12/24/17 02/27/18 02/26/18 Rx risperiDONE [RisperiDONE] 1 mg PO DAILY #30 tablet 12/24/17 02/27/18 02/26/18 Rx Lisinopril [Zestril TAB] 40 mg PO DAILY 02/27/18 02/27/18 02/26/18 History Active Meds: Active Medications Acetaminophen (Tylenol) 650 mg PO Q4H PRN PRN Reason: Pain MILD(1-3)/Fever >100.5/[facility] Last Admin: 02/27/18 21:37 Dose: 650 mg Albuterol (Proventil) 2.5 mg IH Q4HRT PRN PRN Reason: Shortness Of Breath Aspirin (Baby Aspirin) 81 mg PO QDAY [facility] Atorvastatin Calcium (Lipitor) 40 mg PO QHS [facility] Last Admin: 02/27/18 21:36 Dose: 40 mg Carvedilol (Coreg) 25 mg PO BID [facility] Last Admin: 02/27/18 21:36 Dose: 25 mg Enoxaparin Sodium (Lovenox) 60 mg SUB-Q Q12HR [facility] Last Admin: 02/27/18 14:14 Dose: 60 mg Famotidine (Pepcid) 20 mg PO BID [facility] Last Admin: 02/27/18 21:36 Dose: 20 mg Ferrous Sulfate (Feosol) 325 mg PO QDAY [facility] Furosemide (Lasix) 40 mg PO QDAY [facility] Dextrose/Sodium Chloride (D5/0.45ns) 1,000 mls @ 75 mls/hr IV DIRECT [facility] Last Admin: 02/27/18 17:04 Dose: 75 mls/hr Insulin Human Regular (Humulin R) 0 units SUB-Q ACHS [facility]; Protocol Last Admin: 02/27/18 17:03 Dose: 4 units Isosorbide Mononitrate (Imdur) 30 mg PO QDAY [facility] Last Admin: 02/27/18 14:15 Dose: 30 mg Lisinopril (Zestril) 40 mg PO DAILY [facility] Last Admin: 02/27/18 17:02 Dose: 40 mg Ondansetron HCl (Zofran) 4 mg IV Q8H PRN PRN Reason: Nausea And Vomiting Ranolazine (Ranexa Er) 500 mg PO BID [facility] Last Admin: 02/27/18 21:36 Dose: 500 mg Risperidone (Risperdal) 1 mg PO DAILY [facility] Last Admin: 02/27/18 17:03 Dose: 1 mg Sodium Chloride (Sodium Chloride Flush Syringe 10 Ml) 10 ml IV BID [facility] Last Admin: 02/27/18 21:36 Dose: 10 ml Sodium Chloride (Sodium Chloride Flush Syringe 10 Ml) 10 ml IV PRN PRN PRN Reason: LINE FLUSH Review of Systems All systems: negative Physical Examination Vital signs: Vital Signs Temp Pulse Resp BP Pulse Ox 97.9 F 86 14 168/93 100 02/27/18 05:55 02/27/18 05:55 02/27/18 05:55 02/27/18 05:55 02/27/18 05:55 General appearance: no acute distress, asleep Eyes: non-icteric ENT: oropharynx moist Neck: supple, no JVD Ascultation: Bilateral: diminished breath sounds Cardiovascular: regular rate and rhythm Gastrointestinal: normoactive bowel sounds, soft, non-tender Integumentary: normal Extremities: no cyanosis Musculoskeletal: no deformities Gait: other (Patient sleeping at this time.) other (Patient sleeping at this time.) other (Patient sleeping at this time.) Results - Laboratory Findings CBC and BMP: 02/27/18 06:17 02/28/18 05:34 PT/INR, D-dimer PT 15.6 Sec. (12.2-14.9) H 02/27/18 09:44 INR 1.17 (0.87-1.13) H 02/27/18 09:44 Abnormal lab findings: Abnormal Labs 02/27/18 02/27/18 02/27/18 06:17 06:17 09:44 RBC 2.83 L Hgb 8.6 L Hct 26.7 L RDW 22.7 H [place] % (Auto) 7.8 H Seg Neutrophils % 70.1 H PT 15.6 H INR 1.17 H Sodium 136 L Chloride 97.5 L BUN 25 H Creatinine 1.4 H Glucose 340 H POC Glucose AST Alkaline Phosphatase NT-Pro-B Natriuret Pep 02/27/18 02/27/18 02/27/18 09:44 09:44 16:02 RBC Hgb Hct RDW [place] % (Auto) Seg Neutrophils % PT INR Sodium Chloride BUN Creatinine Glucose POC Glucose 296 H AST 43 H Alkaline Phosphatase 236 H NT-Pro-B Natriuret Pep 5622 H 02/27/18 21:19 RBC Hgb Hct RDW [place] % (Auto) Seg Neutrophils % PT INR Sodium Chloride BUN Creatinine Glucose POC Glucose 137 H AST Alkaline Phosphatase NT-Pro-B Natriuret Pep - Diagnostic Findings Chest x-ray: report reviewed (Stable cardiomegaly. No acute cardiopulmonary process has been reported.), image reviewed Additional studies: Perfusion lung scan reported intermediate probability for pulmonary emboli. Assessment and Plan Patient admitted with right sided chest pain which somewhat radiates to her arm. she has some tenderness in her chest when she moves and some discomfort when she breathes deeply. She is coughing up "phlegm". She has noted no hemoptysis. She states that she had a temperature of 101 yesterday and the day before. She is not reporting shaking chills. She denies any leg pain or recent travel.Patient has history CHF, CAD, diabetes, Hypertension, hyperlipidemia, pulmonary embolism, other (pulm HTN) Past Surgical History: PTCA, Other (AICD in situ) Unable to get furthur history, Patient sleeping at this time on room air.O2 saturation 100%. No acute respiratory distress. - Patient Problems (1) Chest pain Current Visit: Yes Status: Acute Qualifiers: Chest pain type: unspecified Qualified Code(s): R07.9 - Chest pain, unspecified Plan to address problem: Complaining right sided pleuritic chest pain. (2) Febrile respiratory illness Current Visit: Yes Status: Acute Plan to address problem: Patient afebrile now. Recommend to get Influenza titres. (3) Uncontrolled diabetes mellitus with hyperglycemia Current Visit: Yes Status: Acute Qualifiers: Diabetes mellitus type: type 2 Qualified Code(s): E11.65 - Type 2 diabetes mellitus with hyperglycemia Plan to address problem: Management as per primary care. (4) Ischemic cardiomyopathy Current Visit: Yes Status: Chronic Plan to address problem: Management as per cardiology. (5) Acute CVA (cerebrovascular accident) Current Visit: No Status: Acute Plan to address problem: Management as per primary care and neurology. (6) Pulmonary embolism Current Visit: No Status: Chronic Plan to address problem: Intermediate probability. Patient is on S/C Lovenox 60 mg S/C q 12 hours. Recommend venous doppler studies of legs.
[2018-02-28] MEDS: LOVENOX SUB-Q SCH (02:17)
[2018-02-28] MEDS: TYLENOL PO PRN ×3 (02:17→17:57)
[2018-02-28] MEDS: D5/0.45NS 1,000 ML IV SCH (05:15)
[2018-02-28 07:12] LABS: Calcium 8.5 mg/dL (8.4-10.2)
[2018-02-28] MEDS: HumuLIN R SUB-Q SCH ×4 (09:12→22:28)
[2018-02-28] MEDS ORDERED: NACL 0.9% 1000 ML 1,000 ML IV SCH (10:00)
[2018-02-28] MEDS ORDERED: LASIX PO SCH (10:00)
[2018-02-28] MEDS: NORVASC PO SCH (13:52)
[2018-02-28] MEDS: COREG PO SCH ×2 (13:58→22:19)
[2018-02-28] MEDS: PEPCID PO SCH ×2 (13:58→22:19)
[2018-02-28] MEDS: IMDUR PO SCH (13:58)
[2018-02-28] MEDS: XARELTO PO SCH (13:59)
[2018-02-28] MEDS: FEOSOL PO SCH (13:59)
[2018-02-28] MEDS: RANEXA ER PO SCH ×2 (13:59→22:19)
[2018-02-28] MEDS: SODIUM CHLORIDE FLUSH SYRINGE 10 ML IV SCH ×2 (13:59→22:20)
[2018-02-28] MEDS: RisperDAL PO SCH (13:59)
[2018-02-28] MEDS: BABY ASPIRIN PO SCH (14:27)
--- NOTE | 2018-02-28 14:41 | Progress Note ---
Assessment and Plan Assessment and plan: Right-sided Chest pain - likely sec to costrochondritis vs PE - Serial troponin levels negative H/O CAD s/p cardiac stents, recent Cardiac cath on 09/23/2017 (nonobstructive CAD ), CHF, EF 25-30% with ICD, - cont statin, BB H/o PE on Xarelto, unsure about compliance - VQ scan suggested for intermediate possibility for PE (Recent CTA during prior admission was negative for PE) - Doppler doppler ultrasound BLE negative - will repeat CTA chest if renal function resolves, cont xarelto HTN, uncontrolled - Continue Coreg, amlodipine added - Adjust meds as needed DM2 with hyperglycemia (a1c 12.6 on 10/30) - Continue SSI, will add Lantus HUSEYNI, likely vasomotor nephropathy - Creatinine level improving, will monitor - Lasix and lisinopril on hold Dvt px, xarelto Disposition: For discharge when medically stable History Interval history: Patient complained of shortness of breath with exertion and intermittent chest pain Hospitalist Physical - Constitutional Vitals: Temp Pulse Resp BP Pulse Ox 98.1 F 81 18 164/90 100 02/28/18 13:30 02/28/18 13:52 02/28/18 13:30 02/28/18 13:58 02/28/18 13:30 General appearance: Present: no acute distress - EENT Eyes: Present: PERRL, EOM intact ENT: hearing intact, clear oral mucosa - Neck Neck: Present: supple - Respiratory Respiratory effort: normal Respiratory: bilateral: CTA - Cardiovascular Rhythm: regular Heart Sounds: Present: S1 & S2 - Extremities Extremities: No edema - Abdominal General gastrointestinal: soft, non-tender, normal bowel sounds - Neurologic Neurologic: CNII-XII intact Results - Labs CBC & Chem 7: 02/27/18 06:17 02/28/18 05:34 Labs: Laboratory Last Values WBC 6.6 K/mm3 (4.5-11.0) 02/27/18 06:17 RBC 2.83 M/mm3 (3.65-5.03) L 02/27/18 06:17 Hgb 8.6 gm/dl (10.1-14.3) L 02/27/18 06:17 Hct 26.7 % (30.3-42.9) L 02/27/18 06:17 MCV 95 fl (79-97) 02/27/18 06:17 MCH 31 pg (28-32) 02/27/18 06:17 MCHC 32 % (30-34) 02/27/18 06:17 RDW 22.7 % (13.2-15.2) H 02/27/18 06:17 Plt Count 202 K/mm3 (140-440) 02/27/18 06:17 Lymph % (Auto) 18.4 % (13.4-35.0) 02/27/18 06:17 [place] % (Auto) 7.8 % (0.0-7.3) H 02/27/18 06:17 Eos % (Auto) 3.0 % (0.0-4.3) 02/27/18 06:17 Baso % (Auto) 0.7 % (0.0-1.8) 02/27/18 06:17 Lymph # 1.2 K/mm3 (1.2-5.4) 02/27/18 06:17 [place] # 0.5 K/mm3 (0.0-0.8) 02/27/18 06:17 Eos # 0.2 K/mm3 (0.0-0.4) 02/27/18 06:17 Baso # 0.0 K/mm3 (0.0-0.1) 02/27/18 06:17 Seg Neutrophils % 70.1 % (40.0-70.0) H 02/27/18 06:17 Seg Neutrophils # 4.6 K/mm3 (1.8-7.7) 02/27/18 06:17 PT 15.6 Sec. (12.2-14.9) H 02/27/18 09:44 INR 1.17 (0.87-1.13) H 02/27/18 09:44 APTT 34.3 Sec. (24.2-36.6) 02/27/18 09:44 Sodium 135 mmol/L (137-145) L 02/28/18 05:34 Potassium 3.7 mmol/L (3.6-5.0) 02/28/18 05:34 Chloride 98.4 mmol/L (98-107) 02/28/18 05:34 Carbon Dioxide 22 mmol/L (22-30) 02/28/18 05:34 Anion Gap 18 mmol/L 02/28/18 05:34 BUN 21 mg/dL (7-17) H 02/28/18 05:34 Creatinine 1.3 mg/dL (0.7-1.2) H 02/28/18 05:34 Estimated GFR 51 ml/min 02/28/18 05:34 BUN/Creatinine Ratio 16 % 02/28/18 05:34 Glucose 159 mg/dL (65-100) H 02/28/18 05:34 POC Glucose 188 (70-105) H 02/28/18 05:21 Lactic Acid 1.70 mmol/L (0.7-2.0) 02/27/18 10:13 Calcium 8.5 mg/dL (8.4-10.2) 02/28/18 05:34 Magnesium 1.70 mg/dL (1.7-2.3) 02/27/18 09:44 Total Bilirubin 0.50 mg/dL (0.1-1.2) 02/27/18 09:44 Direct Bilirubin 0.2 mg/dL (0-0.2) 02/27/18 09:44 Indirect Bilirubin 0.3 mg/dL 02/27/18 09:44 AST 43 units/L (5-40) H 02/27/18 09:44 ALT 31 units/L (7-56) 02/27/18 09:44 Alkaline Phosphatase 236 units/L (35-129) H 02/27/18 09:44 Troponin T < 0.010 ng/mL (0.00-0.029) 02/27/18 11:30 NT-Pro-B Natriuret Pep 5622 pg/mL (0-900) H 02/27/18 09:44 Total Protein 7.5 g/dL (6.3-8.2) 02/27/18 09:44 Albumin 4.2 g/dL (3.9-5) 02/27/18 09:44 Albumin/Globulin Ratio 1.3 % 02/27/18 09:44 Urine Color Straw (Yellow) 02/27/18 10:16 Urine Turbidity Clear (Clear) 02/27/18 10:16 Urine pH 6.0 (5.0-7.0) 02/27/18 10:16 Ur Specific [place] 1.008 (1.003-1.030) 02/27/18 10:16 Urine Protein <15 mg/dl mg/dL (Negative) 02/27/18 10:16 Urine Glucose (UA) >=500 mg/dL (Negative) 02/27/18 10:16 Urine Ketones Neg mg/dL (Negative) 02/27/18 10:16 Urine Blood Neg (Negative) 02/27/18 10:16 Urine Nitrite Neg (Negative) 02/27/18 10:16 Urine Bilirubin Neg (Negative) 02/27/18 10:16 Urine Urobilinogen < 2.0 mg/dL (<2.0) 02/27/18 10:16 Ur Leukocyte Esterase Neg (Negative) 02/27/18 10:16 Urine WBC (Auto) 2.0 /HPF (0.0-6.0) 02/27/18 10:16 Urine RBC (Auto) < 1.0 /HPF (0.0-6.0) 02/27/18 10:16 U Epithel Cells (Auto) 1.0 /HPF (0-13.0) 02/27/18 10:16
--- NOTE | 2018-02-28 20:49 | Progress Note ---
Assessment and Plan Patient admitted with right sided chest pain which somewhat radiates to her arm. she has some tenderness in her chest when she moves and some discomfort when she breathes deeply. She is coughing up "phlegm". She has noted no hemoptysis. She states that she had a temperature of 101 yesterday and the day before. She is not reporting shaking chills. She denies any leg pain or recent travel.Patient has history CHF, CAD, diabetes, Hypertension, hyperlipidemia, pulmonary embolism, other (pulm HTN) Past Surgical History: PTCA, Other (AICD in situ) Patient denies alcohol or drug abuse. 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 Allergic to codeine. and has two children Unable to get furthur history, Patient sleeping at this time on room air.O2 saturation 100%. No acute respiratory distress. 02/28/18 Patient alert, awake and resting on room air.O2 saturation 100%.Still complaining right sided pleuritic chest pain. No acute respiratory distress. - Patient Problems (1) Chest pain Current Visit: Yes Status: Acute Qualifiers: Chest pain type: unspecified Qualified Code(s): R07.9 - Chest pain, unspecified Plan to address problem: Complaining right sided pleuritic chest pain. (2) Febrile respiratory illness Current Visit: Yes Status: Acute Plan to address problem: Patient afebrile now. Recommend to get Influenza titres. (3) Uncontrolled diabetes mellitus with hyperglycemia Current Visit: Yes Status: Acute Qualifiers: Diabetes mellitus type: type 2 Qualified Code(s): E11.65 - Type 2 diabetes mellitus with hyperglycemia Plan to address problem: Management as per primary care. (4) Ischemic cardiomyopathy Current Visit: Yes Status: Chronic Plan to address problem: Management as per cardiology. (5) Acute CVA (cerebrovascular accident) Current Visit: No Status: Acute Plan to address problem: Management as per primary care and neurology. (6) Pulmonary embolism Current Visit: No Status: Chronic Plan to address problem: Intermediate probability. Patient is on xarelto.. Recommend venous doppler studies of legs. Subjective Date of service: 02/28/18 Interval history: Patient alert, awake and resting on room air.O2 saturation 100%.Still complaining right sided pleuritic chest pain. No acute respiratory distress. Objective Vital Signs - 12hr 02/28/18 02/28/18 02/28/18 13:30 13:52 13:58 Temperature 98.1 F Pulse Rate 83 81 Respiratory 18 Rate Blood Pressure 160/92 164/90 164/90 O2 Sat by Pulse 100 Oximetry 02/28/18 16:53 Temperature 98.7 F Pulse Rate 81 Respiratory 20 Rate Blood Pressure 149/93 O2 Sat by Pulse 98 Oximetry Constitutional: no acute distress, alert Eyes: non-icteric ENT: oropharynx moist Neck: supple, no JVD Ascultation: Bilateral: diminished breath sounds Cardiovascular: regular rate and rhythm Gastrointestinal: normoactive bowel sounds, soft, non-tender Integumentary: normal Extremities: no cyanosis Neurologic: non-focal exam, pupils equal and round, CN II-XII normal Psychiatric: anxious CBC and BMP: 02/27/18 06:17 02/28/18 05:34 ABG, PT/INR, D-dimer: PT/INR, D-dimer PT 15.6 Sec. (12.2-14.9) H 02/27/18 09:44 INR 1.17 (0.87-1.13) H 02/27/18 09:44 Abnormal lab findings: Abnormal Labs 02/27/18 02/27/18 02/27/18 06:17 06:17 09:44 RBC 2.83 L Hgb 8.6 L Hct 26.7 L RDW 22.7 H [place] % (Auto) 7.8 H Seg Neutrophils % 70.1 H PT 15.6 H INR 1.17 H Sodium 136 L Chloride 97.5 L BUN 25 H Creatinine 1.4 H Glucose 340 H POC Glucose AST Alkaline Phosphatase NT-Pro-B Natriuret Pep 02/27/18 02/27/18 02/27/18 09:44 09:44 16:02 RBC Hgb Hct RDW [place] % (Auto) Seg Neutrophils % PT INR Sodium Chloride BUN Creatinine Glucose POC Glucose 296 H AST 43 H Alkaline Phosphatase 236 H NT-Pro-B Natriuret Pep 5622 H 02/27/18 02/28/18 02/28/18 21:19 05:21 05:34 RBC Hgb Hct RDW [place] % (Auto) Seg Neutrophils % PT INR Sodium 135 L Chloride BUN 21 H Creatinine 1.3 H Glucose 159 H POC Glucose 137 H 188 H AST Alkaline Phosphatase NT-Pro-B Natriuret Pep
[2018-02-28] MEDS: LANTUS SUB-Q SCH (22:27)
[2018-03-01 06:01] LABS: Calcium 8.6 mg/dL (8.4-10.2)
[2018-03-01] MEDS: HumuLIN R SUB-Q SCH ×4 (08:01→21:55)
[2018-03-01] MEDS: NORVASC PO SCH (10:57)
[2018-03-01] MEDS: TYLENOL PO PRN ×2 (10:58→17:38)
[2018-03-01] MEDS: IMDUR PO SCH (10:58)
[2018-03-01] MEDS: PEPCID PO SCH ×2 (10:58→21:54)
[2018-03-01] MEDS: RANEXA ER PO SCH ×2 (10:58→21:53)
[2018-03-01] MEDS: BABY ASPIRIN PO SCH (10:58)
[2018-03-01] MEDS: FEOSOL PO SCH (10:58)
[2018-03-01] MEDS: COREG PO SCH ×2 (10:59→21:53)
[2018-03-01] MEDS: SODIUM CHLORIDE FLUSH SYRINGE 10 ML IV SCH ×2 (10:59→21:56)
[2018-03-01] MEDS: RisperDAL PO SCH (10:59)
[2018-03-01] MEDS: XARELTO PO SCH (10:59)
--- NOTE | 2018-03-01 12:02 | Progress Note ---
Assessment and Plan Chest Pain H/O VTE on Xarelto CAD HTN Diabetes type II HUSEYIN (VQ indeterminate and dopplers negative; no admission D-Dimer; overall risk benefit ratio argues against getting a CTA chest re: contrast nephropathy and the fact that she is on treatment for a VTE already) - optimize cardiac function and get cardiology input re: ? need for cardiac w/up - prn analgesia - continue xarelto for VTE - supplemental oxygen as needed to keep sats > 90% - continue glycemic control with SSI - home oxygen evaluation - PT/OT as tolerated - continue other care per attending / other consultants - outpatient pulmonary clinic f/up Subjective Date of service: 03/01/18 Principal diagnosis: Chest Pain; Anbormal VQ Scan; Cardiomyopathy s/p AICD Interval history: Patient is seen today for: Chest Pain; Anbormal VQ Scan; Cardiomyopathy s/p AICD Seen and examined at bedside; 24hour events reviewed; nursing and respiratory care staff consulted; no adverse overnight events reported to me; resting in bed ; on supplemental oxygen at 4L NC; denies acute chest pains or increased SOB; No N/V/F/C Objective Vital Signs - 12hr 03/01/18 03/01/18 03/01/18 00:03 04:28 08:13 Temperature 98.0 F 98.2 F 98.6 F Pulse Rate 76 72 73 Respiratory 18 18 18 Rate Blood Pressure 127/65 107/63 132/75 O2 Sat by Pulse 99 100 100 Oximetry 03/01/18 03/01/18 03/01/18 10:00 10:57 10:58 Temperature Pulse Rate 72 71 Respiratory 16 Rate Blood Pressure O2 Sat by Pulse Oximetry 03/01/18 03/01/18 10:59 11:47 Temperature 98.2 F Pulse Rate 71 77 Respiratory 18 Rate Blood Pressure 166/92 O2 Sat by Pulse 100 Oximetry Constitutional: no acute distress, alert, other (middle aged AAF, normocephalic and atraumatic) Eyes: non-icteric ENT: oropharynx moist, other (mallampati 2) Neck: supple, no lymphadenopathy, no JVD, other (no thyromegaly) Effort: mildly labored Ascultation: Bilateral: diminished breath sounds, rhonchi (bases) Percussion: Bilateral: not dull Cardiovascular: regular rate and rhythm, other (No R/M) Gastrointestinal: normoactive bowel sounds, soft, non-tender, non-distended, other (No HSM) Integumentary: normal Extremities: no cyanosis, no edema, pulses normal, no ischemia or petechiae Neurologic: normal mental status, non-focal exam, pupils equal and round, CN II- XII normal, motor strength normal and Psychiatric: mood appropriate, affect normal CBC and BMP: 02/27/18 06:17 03/01/18 05:11 ABG, PT/INR, D-dimer: PT/INR, D-dimer PT 15.6 Sec. (12.2-14.9) H 02/27/18 09:44 INR 1.17 (0.87-1.13) H 02/27/18 09:44 Abnormal lab findings: Abnormal Labs 02/27/18 02/27/18 02/27/18 06:17 06:17 09:44 RBC 2.83 L Hgb 8.6 L Hct 26.7 L RDW 22.7 H [place] % (Auto) 7.8 H Seg Neutrophils % 70.1 H PT 15.6 H INR 1.17 H Sodium 136 L Chloride 97.5 L Carbon Dioxide BUN 25 H Creatinine 1.4 H Glucose 340 H POC Glucose AST Alkaline Phosphatase NT-Pro-B Natriuret Pep 02/27/18 02/27/18 02/27/18 09:44 09:44 16:02 RBC Hgb Hct RDW [place] % (Auto) Seg Neutrophils % PT INR Sodium Chloride Carbon Dioxide BUN Creatinine Glucose POC Glucose 296 H AST 43 H Alkaline Phosphatase 236 H NT-Pro-B Natriuret Pep 5622 H 02/27/18 02/28/18 02/28/18 21:19 05:21 05:34 RBC Hgb Hct RDW [place] % (Auto) Seg Neutrophils % PT INR Sodium 135 L Chloride Carbon Dioxide BUN 21 H Creatinine 1.3 H Glucose 159 H POC Glucose 137 H 188 H AST Alkaline Phosphatase NT-Pro-B Natriuret Pep 02/28/18 02/28/18 03/01/18 17:55 21:31 05:11 RBC Hgb Hct RDW [place] % (Auto) Seg Neutrophils % PT INR Sodium Chloride Carbon Dioxide 20 L BUN 25 H Creatinine 1.3 H Glucose POC Glucose 258 H 161 H AST Alkaline Phosphatase NT-Pro-B Natriuret Pep Chest x-ray: image reviewed (mild interstitial edema) Allied health notes reviewed: nursing
--- NOTE | 2018-03-01 13:56 | Ultrasound Report ---
ULTRASOUND RENAL BILATERAL HISTORY: Chronic kidney disease. TECHNIQUE: transabdominal ultrasound with color Doppler interrogation. COMPARISON: none. FINDINGS: The right kidney measures 10.5cm. Right renal cortex: 1.0cm. The left kidney measures 10.6cm. Left renal cortex: 1.4cm. The kidneys are normal size, contour and position. There is increased renal cortical echotexture bilaterally consistent with nonspecific renal parenchymal disease. Corticomedullary differentiation is preserved. No evidence for cystic disease, mass, nephrolithiasis, hydronephrosis or perinephric fluid. The bladder is empty. IMPRESSION: Renal parenchymal disease.
--- NOTE | 2018-03-01 14:31 | Progress Note ---
Assessment and Plan Acute respiratory failure, POA - gets SOB on ambulation/exertion - on N/c now, could be from underlying CHF - will assess for home O2 requirement Right-sided Chest pain - likely sec to costrochondritis vs PE - Serial troponin levels negative H/O CAD s/p cardiac stents, recent Cardiac cath on 09/23/2017 (nonobstructive CAD ), CHF, EF 25-30% with ICD, - cont statin, BB H/o PE on Xarelto, unsure about compliance - VQ scan suggested for intermediate possibility for PE (Recent CTA during prior admission was negative for PE) - Doppler doppler ultrasound BLE negative - per pulmonary no need to repeat CTA chest as there is a risk for contrast induced nephropathy, - Now cont xarelto HTN, uncontrolled - Continue Coreg, amlodipine added - Adjust meds as needed DM2 with hyperglycemia (a1c 12.6 on 10/30) - Continue SSI, added Lantus HUSEYIN, likely vasomotor nephropathy - Creatinine level improving, will monitor - Lasix and lisinopril on hold Dvt px, xarelto Disposition: For discharge after being eval for home o2 requirement Hospitalist Physical General appearance: Present: no acute distress - EENT Eyes: Present: PERRL, EOM intact ENT: hearing intact, clear oral mucosa - Neck Neck: Present: supple - Respiratory Respiratory effort: slightly labored Respiratory: bilateral: few crackles - Cardiovascular Rhythm: regular Heart Sounds: Present: S1 & S2 - Extremities Extremities: No edema - Abdominal General gastrointestinal: soft, non-tender, normal bowel sounds - Neurologic Neurologic: CNII-XII intact Subjective Date of service: 03/01/18 Principal diagnosis: Chest Pain; Anbormal VQ Scan; Cardiomyopathy s/p AICD Interval history: Pt seen and examined Appears more SOB today denies chest pain Objective - Constitutional Vitals: Vital Signs - 12hr 03/01/18 03/01/18 03/01/18 04:28 08:13 10:00 Temperature 98.2 F 98.6 F Pulse Rate 72 73 Respiratory 18 18 16 Rate Blood Pressure 107/63 132/75 O2 Sat by Pulse 100 100 Oximetry 03/01/18 03/01/18 03/01/18 10:57 10:58 10:59 Temperature Pulse Rate 72 71 71 Respiratory Rate Blood Pressure O2 Sat by Pulse Oximetry 03/01/18 11:47 Temperature 98.2 F Pulse Rate 77 Respiratory 18 Rate Blood Pressure 166/92 O2 Sat by Pulse 100 Oximetry - Labs CBC & Chem 7: 02/27/18 06:17 03/01/18 05:11 Labs: Abnormal lab results 02/28/18 02/28/18 03/01/18 Range/Units 17:55 21:31 05:11 Carbon Dioxide 20 L (22-30) mmol/L BUN 25 H (7-17) mg/dL Creatinine 1.3 H (0.7-1.2) mg/dL POC Glucose 258 H 161 H (70-105) 03/01/18 Range/Units 11:54 Carbon Dioxide (22-30) mmol/L BUN (7-17) mg/dL Creatinine (0.7-1.2) mg/dL POC Glucose 156 H (70-105)
--- NOTE | 2018-03-01 15:50 | Consultation ---
History of Present Illness Consult date: 03/01/18 Requesting physician: ROB SALDANA Consult reason: chest pain History of present illness: The patient is a 57 year old female with a history of CAD s/p PCI, ICMP, AICD in situ, HTN, DM, hyperlipidemia, anemia, PE anticoagulated with Xarelto, pulmonary HTN and recurrent chest pain who presented with complaints of intermittent, nonexertional, midsternal sharp chest pain for 3 days prior to arrival. The pain was associated with SOB and some palpitations. She denies any nausea, vomiting, diaphoresis, dizziness or syncope. LHC done 09/2017 showed mild to mod diffuse nonobstructive CAD with patent stents in the prox and mid LAD, mid circ, and full metal jacket of the prox, mid and distal RCA, no significant obstructive disease identified, EF 25-30%. Echo done 10/2017 showed EF 25-30%, LA mild to mod dilated, RA mildly dilated, mod to severe MR, mod to severe TR, mild AR, RV systolic function mildly reduced, severe pulm HTN with RVSP 61mmHg, minimal pericardial effusion. Past History Past Medical History: CAD, heart failure, hypertension, hyperlipidemia, pulmonary embolism Medications and Allergies Allergies Allergy/AdvReac Type Severity Reaction Status Date / Time codeine Allergy Hives Verified 06/15/14 05:41 Home Medications Medication Instructions Recorded Confirmed Last Taken Type AtorvaSTATin [Lipitor] 40 mg PO QHS #30 tablet 08/15/16 02/27/18 02/26/18 Rx Carvedilol [Coreg] 25 mg PO BID #60 tablet 09/02/16 02/27/18 02/26/18 Rx Furosemide [Lasix TAB] 40 mg PO QDAY #30 tablet 09/02/16 02/27/18 02/26/18 Rx ALBUTEROL Inhaler (OR & NICU) 2 puff IH QID PRN #1 inhalation 06/28/17 02/27/18 Unknown Rx [ProAir HFA Inhaler] Aspirin [Aspirin BABY CHEW TAB] 81 mg PO QDAY #30 tab.chew 09/23/17 02/27/18 Rx Ferrous Sulfate 325 mg PO DAILY #30 tablet. 09/23/17 02/27/18 02/26/18 Rx Acetaminophen [Acetaminophen TAB] 650 mg PO Q4H PRN #30 tablet 11/06/17 Unknown Rx Famotidine [Pepcid] 20 mg PO BID #60 tablet 11/06/17 03/01/18 Unknown Rx Ferrous Sulfate [Feosol 325 MG tab] 325 mg PO QDAY tablet 12/24/17 02/27/18 Rx ISOSORBIDE MONOnitrate [Imdur ER] 30 mg PO QDAY #30 tablet 12/24/17 03/01/18 Unknown Rx Ranolazine [Ranexa] 500 mg PO BID #60 tab.er.12h 12/24/17 02/27/18 02/26/18 Rx Rivaroxaban [Xarelto] 20 mg PO QDAY #30 tablet 12/24/17 02/27/18 02/26/18 Rx risperiDONE [RisperiDONE] 1 mg PO DAILY #30 tablet 12/24/17 02/27/18 02/26/18 Rx Lisinopril [Zestril TAB] 40 mg PO DAILY 02/27/18 02/27/18 02/26/18 History Active Meds: Active Medications Acetaminophen (Tylenol) 650 mg PO Q4H PRN PRN Reason: Pain MILD(1-3)/Fever >100.5/[facility] Last Admin: 03/01/18 10:58 Dose: 650 mg Albuterol (Proventil) 2.5 mg IH Q4HRT PRN PRN Reason: Shortness Of Breath Amlodipine Besylate (Norvasc) 10 mg PO QDAY [facility] Last Admin: 03/01/18 10:57 Dose: 10 mg Aspirin (Baby Aspirin) 81 mg PO QDAY [facility] Last Admin: 03/01/18 10:58 Dose: 81 mg Atorvastatin Calcium (Lipitor) 40 mg PO QHS [facility] Last Admin: 02/28/18 22:19 Dose: 40 mg Carvedilol (Coreg) 25 mg PO BID [facility] Last Admin: 03/01/18 10:59 Dose: 25 mg Famotidine (Pepcid) 20 mg PO BID [facility] Last Admin: 03/01/18 10:58 Dose: 20 mg Ferrous Sulfate (Feosol) 325 mg PO QDAY [facility] Last Admin: 03/01/18 10:58 Dose: 325 mg Insulin Glargine (Lantus) 10 units SUB-Q QHS [facility] Last Admin: 02/28/18 22:27 Dose: 10 units Insulin Human Regular (Humulin R) 0 units SUB-Q ACHS [facility]; Protocol Last Admin: 03/01/18 08:01 Dose: Not Given Isosorbide Mononitrate (Imdur) 30 mg PO QDAY [facility] Last Admin: 03/01/18 10:58 Dose: 30 mg Ondansetron HCl (Zofran) 4 mg IV Q8H PRN PRN Reason: Nausea And Vomiting Ranolazine (Ranexa Er) 500 mg PO BID [facility] Last Admin: 03/01/18 10:58 Dose: 500 mg Risperidone (Risperdal) 1 mg PO DAILY [facility] Last Admin: 03/01/18 10:59 Dose: 1 mg Rivaroxaban (Xarelto) 20 mg PO QDAY [facility]; Protocol Last Admin: 03/01/18 10:59 Dose: 20 mg Sodium Chloride (Sodium Chloride Flush Syringe 10 Ml) 10 ml IV BID [facility] Last Admin: 03/01/18 10:59 Dose: 10 ml Sodium Chloride (Sodium Chloride Flush Syringe 10 Ml) 10 ml IV PRN PRN PRN Reason: LINE FLUSH Review of Systems Constitutional: no weight loss, no weight gain, no fever, no chills, no sweats Ears, nose, mouth and throat: no ear pain, no nose pain, no sinus pressure, no sinus pain Cardiovascular: chest pain, palpitations, shortness of breath, no orthopnea, no rapid/irregular heart beat, no edema, no syncope, no lightheadedness, no high blood pressure, no leg edema Respiratory: shortness of breath, no cough, no congestion, no wheezing, no pain on inspiration Gastrointestinal: no abdominal pain, no nausea, no vomiting, no diarrhea, no constipation, no change in bowel habits Genitourinary Female: no pelvic pain, no flank pain, no dysuria, no urinary frequency, no urgency Musculoskeletal: no neck stiffness, no neck pain Integumentary: no rash, no pruritis, no redness, no sores, no wounds Neurological: no head injury, no paralysis, no weakness, no parathesias, no numbness, no tingling, no seizures, no syncope Psychiatric: no anxiety Endocrine: no cold intolerance, no heat intolerance Hematologic/Lymphatic: no easy bruising, no easy bleeding Allergic/Immunologic: no urticaria, no wheezing Physical Examination Vital Signs Temp Pulse Resp BP Pulse Ox 97.9 F 86 14 168/93 100 02/27/18 05:55 02/27/18 05:55 02/27/18 05:55 02/27/18 05:55 02/27/18 05:55 General appearance: no acute distress HEENT: Positive: PERRL, Normocephaly, Mucus Membranes Moist Neck: Positive: neck supple, trachea midline Cardiac: Positive: Reg Rate and Rhythm, S1/S2, Systolic Murmur Lungs: Positive: clear to auscultation Neuro: Positive: Grossly Intact Abdomen: Positive: Soft. Negative: Tender Musculoskeletal: No Fluid Collection, No Pain, Normal Range of Motion Extremities: Absent: edema Results 02/27/18 06:17 03/01/18 05:11 Comprehensive Metabolic Panel 03/01/18 Range/Units 05:11 Sodium 139 (137-145) mmol/L Potassium 4.0 (3.6-5.0) mmol/L Chloride 106.7 (98-107) mmol/L Carbon Dioxide 20 L (22-30) mmol/L BUN 25 H (7-17) mg/dL Creatinine 1.3 H (0.7-1.2) mg/dL Glucose 75 (65-100) mg/dL Calcium 8.6 (8.4-10.2) mg/dL - Imaging and Cardiology Echo: report reviewed (q) Cardiac cath: report reviewed (09/2017 showed mild to mod diffuse nonobstructive CAD with patent stents in the prox and mid LAD, mid circ, and full metal jacket of the prox, mid and distal RCA, no significant obstructive disease identified, EF 25-30%.) EKG: report reviewed, image reviewed EKG interpretations - Telemetry EKG Rhythm: Sinus Rhythm - EKG Sinus rhythms and dysrhythmias: sinus rhythm AV and intraventricular conduction: left bundle branch block Assessment and Plan ECG with no acute ischemic changes. Chest pain currently resolved. In setting of [facility] 09/2017 which showed patent stents and nonobstructive CAD, Malgorzata negative for AMI, ECG with no acute ischemic changes and rather atypical nature of chest pain, no plans for repeat ischemic evaluation or echo at this time. Currently stable cardiac status. Pt may discharge home from cardiology standpoint on current cardiac regimen. Recommend follow up in our office with Brandee Ambrocio NP, within 1-2 weeks of hospital discharge ([phone]). The patient has been seen in conjunction with Dr. Nicholas who agrees with the assessment and plan of care. - Patient Problems (1) Chest pain Current Visit: Yes Status: Acute (2) CAD (coronary artery disease) Current Visit: Yes Status: Chronic (3) Stented coronary artery Current Visit: Yes Status: Chronic (4) Ischemic cardiomyopathy Current Visit: Yes Status: Chronic (5) Automatic implantable cardioverter-defibrillator in situ Current Visit: Yes Status: Chronic (6) HTN (hypertension) Current Visit: Yes Status: Chronic Qualifiers: (7) Diabetes mellitus Current Visit: Yes Status: Chronic Qualifiers: Diabetes mellitus type: type 2 Diabetes mellitus fci insulin use: unspecified long term care administrator insulin use status Diabetes mellitus complication status : without complication Qualified Code(s): E11.9 - Type 2 diabetes mellitus without complications (8) Hyperlipidemia Current Visit: Yes Status: Chronic (9) Anemia Current Visit: Yes Status: Chronic (10) History of pulmonary embolism Current Visit: No Status: Chronic (11) Left bundle branch block Current Visit: Yes Status: Chronic
[2018-03-01] MEDS: LANTUS SUB-Q SCH (21:54)
[2018-03-01] MEDS: NORCO 5/325 PO PRN (21:54)
[2018-03-02] MEDS: NORCO 5/325 PO PRN ×3 (05:49→21:58)
[2018-03-02] MEDS: HumuLIN R SUB-Q SCH ×4 (08:43→22:00)
[2018-03-02] MEDS: RANEXA ER PO SCH ×2 (09:59→21:58)
[2018-03-02] MEDS: FEOSOL PO SCH (09:59)
[2018-03-02] MEDS: BABY ASPIRIN PO SCH (09:59)
[2018-03-02] MEDS: RisperDAL PO SCH (09:59)
[2018-03-02] MEDS: COREG PO SCH ×2 (10:00→22:01)
[2018-03-02] MEDS: PEPCID PO SCH ×2 (10:00→21:58)
[2018-03-02] MEDS: IMDUR PO SCH (10:00)
[2018-03-02] MEDS: XARELTO PO SCH (10:01)
[2018-03-02] MEDS: NORVASC PO SCH (10:01)
[2018-03-02] MEDS: SODIUM CHLORIDE FLUSH SYRINGE 10 ML IV SCH ×2 (10:02→22:01)
[2018-03-02 11:24] LABS: Calcium 8.9 mg/dL (8.4-10.2)
--- NOTE | 2018-03-02 16:23 | Progress Note ---
Assessment and Plan Acute respiratory failure, POA - gets SOB on ambulation/exertion - on N/c now, could be from underlying CHF - assessment for home O2 requirement pending Right-sided Chest pain - likely sec to costrochondritis vs PE - Serial troponin levels negative - no further workup per cardiology H/O CAD s/p cardiac stents, recent Cardiac cath on 09/23/2017 (nonobstructive CAD ), CHF, EF 25-30% with ICD, - cont statin, BB H/o PE on Xarelto, unsure about compliance - VQ scan suggested for intermediate possibility for PE (Recent CTA during prior admission was negative for PE) - Doppler doppler ultrasound BLE negative - per pulmonary no need to repeat CTA chest as there is a risk for contrast induced nephropathy, - Now cont xarelto HTN, uncontrolled - Continue Coreg, amlodipine added - Adjust meds as needed DM2 with hyperglycemia (a1c 12.6 on 10/30) - Continue SSI, added Lantus HUSEYIN, likely vasomotor nephropathy - Creatinine level improving, will monitor - Lasix and lisinopril on hold Physical debility, consult PT Dvt px, xarelto Disposition: For discharge after being eval for home o2 requirement Hospitalist Physical General appearance: Present: no acute distress - EENT Eyes: Present: PERRL, EOM intact ENT: hearing intact, clear oral mucosa - Neck Neck: Present: supple - Respiratory Respiratory effort: slightly labored Respiratory: bilateral: few crackles - Cardiovascular Rhythm: regular Heart Sounds: Present: S1 & S2 - Extremities Extremities: No edema - Abdominal General gastrointestinal: soft, non-tender, normal bowel sounds - Neurologic Neurologic: CNII-XII intact Subjective Date of service: 03/02/18 Principal diagnosis: Chest Pain; Anbormal VQ Scan; Cardiomyopathy s/p AICD Interval history: Pt seen and examined Appears comfortable but c/o rightsided chest pain Objective - Constitutional Vitals: Vital Signs - 12hr 03/02/18 03/02/18 03/02/18 05:49 08:47 10:00 Temperature 97.6 F Pulse Rate 75 75 Pulse Rate [ 75 Apical] Pulse Rate [ 75 Left Radial] Pulse Rate [ 75 Right Radial] Respiratory 20 18 18 Rate Blood Pressure 145/80 Blood Pressure 153/78 [Left] O2 Sat by Pulse 97 97 Oximetry 03/02/18 03/02/18 03/02/18 10:01 12:00 12:19 Temperature 97.4 F L Pulse Rate 75 72 72 Pulse Rate [ Apical] Pulse Rate [ Left Radial] Pulse Rate [ Right Radial] Respiratory 20 Rate Blood Pressure 154/80 Blood Pressure 133/76 [Left] O2 Sat by Pulse 100 Oximetry - Labs CBC & Chem 7: 02/27/18 06:17 03/02/18 10:35 Labs: Abnormal lab results 03/01/18 03/01/18 03/02/18 Range/Units 16:02 20:06 05:44 Sodium (137-145) mmol/L Carbon Dioxide (22-30) mmol/L BUN (7-17) mg/dL Glucose (65-100) mg/dL POC Glucose 273 H 252 H 165 H (70-105) 03/02/18 03/02/18 Range/Units 10:35 12:18 Sodium 135 L (137-145) mmol/L Carbon Dioxide 20 L (22-30) mmol/L BUN 24 H (7-17) mg/dL Glucose 225 H (65-100) mg/dL POC Glucose 218 H (70-105)
--- NOTE | 2018-03-02 17:05 | Progress Note ---
Assessment and Plan Chest Pain-atypical H/O VTE on Xarelto CAD HTN Diabetes type II HUSEYIN - prn analgesia - continue xarelto for VTE - supplemental oxygen as needed to keep sats > 90% - continue glycemic control with SSI - home oxygen evaluation - PT/OT as tolerated - continue other care per attending / other consultants - outpatient pulmonary clinic f/up -discharge planning Subjective Date of service: 03/02/18 Principal diagnosis: Chest Pain; Abormal VQ Scan; Cardiomyopathy s/p AICD Interval history: Patient is seen today for: Chest Pain; Anbormal VQ Scan; Cardiomyopathy s/p AICD Seen and examined at bedside; 24hour events reviewed; nursing and respiratory care staff consulted; no adverse overnight events reported to me; resting in bed ; on supplemental oxygen at 4L NC; denies acute chest pains or increased SOB; No N/V/F/C Objective Vital Signs - 12hr 03/02/18 03/02/18 03/02/18 05:49 08:47 10:00 Temperature 97.6 F Pulse Rate 75 75 Pulse Rate [ 75 Apical] Pulse Rate [ 75 Left Radial] Pulse Rate [ 75 Right Radial] Respiratory 20 18 18 Rate Blood Pressure 145/80 Blood Pressure 153/78 [Left] O2 Sat by Pulse 97 97 Oximetry 03/02/18 03/02/18 03/02/18 10:01 12:00 12:19 Temperature 97.4 F L Pulse Rate 75 72 72 Pulse Rate [ Apical] Pulse Rate [ Left Radial] Pulse Rate [ Right Radial] Respiratory 20 Rate Blood Pressure 154/80 Blood Pressure 133/76 [Left] O2 Sat by Pulse 100 Oximetry 03/02/18 16:51 Temperature 98.4 F Pulse Rate 70 Pulse Rate [ Apical] Pulse Rate [ Left Radial] Pulse Rate [ Right Radial] Respiratory 18 Rate Blood Pressure Blood Pressure 136/78 [Left] O2 Sat by Pulse 98 Oximetry Constitutional: no acute distress, alert, other (middle aged AAF, normocephalic and atraumatic) Eyes: non-icteric ENT: oropharynx moist, other (mallampati 2) Neck: supple, no lymphadenopathy, no JVD, other (no thyromegaly) Effort: mildly labored Ascultation: Bilateral: diminished breath sounds, rhonchi (bases) Percussion: Bilateral: not dull Cardiovascular: regular rate and rhythm, other (No R/M) Gastrointestinal: normoactive bowel sounds, soft, non-tender, non-distended, other (No HSM) Integumentary: normal Extremities: no cyanosis, no edema, pulses normal, no ischemia or petechiae Neurologic: normal mental status, non-focal exam, pupils equal and round, CN II- XII normal, motor strength normal and Psychiatric: mood appropriate, affect normal CBC and BMP: 02/27/18 06:17 03/02/18 10:35 ABG, PT/INR, D-dimer: PT/INR, D-dimer PT 15.6 Sec. (12.2-14.9) H 02/27/18 09:44 INR 1.17 (0.87-1.13) H 02/27/18 09:44 Abnormal lab findings: Abnormal Labs 02/27/18 02/27/18 02/27/18 06:17 06:17 09:44 RBC 2.83 L Hgb 8.6 L Hct 26.7 L RDW 22.7 H Delta % (Auto) 7.8 H Seg Neutrophils % 70.1 H PT 15.6 H INR 1.17 H Sodium 136 L Chloride 97.5 L Carbon Dioxide BUN 25 H Creatinine 1.4 H Glucose 340 H POC Glucose AST Alkaline Phosphatase NT-Pro-B Natriuret Pep 02/27/18 02/27/18 02/27/18 09:44 09:44 16:02 RBC Hgb Hct RDW Delta % (Auto) Seg Neutrophils % PT INR Sodium Chloride Carbon Dioxide BUN Creatinine Glucose POC Glucose 296 H AST 43 H Alkaline Phosphatase 236 H NT-Pro-B Natriuret Pep 5622 H 02/27/18 02/28/18 02/28/18 21:19 05:21 05:34 RBC Hgb Hct RDW Delta % (Auto) Seg Neutrophils % PT INR Sodium 135 L Chloride Carbon Dioxide BUN 21 H Creatinine 1.3 H Glucose 159 H POC Glucose 137 H 188 H AST Alkaline Phosphatase NT-Pro-B Natriuret Pep 02/28/18 02/28/18 03/01/18 17:55 21:31 05:11 RBC Hgb Hct RDW Delta % (Auto) Seg Neutrophils % PT INR Sodium Chloride Carbon Dioxide 20 L BUN 25 H Creatinine 1.3 H Glucose POC Glucose 258 H 161 H AST Alkaline Phosphatase NT-Pro-B Natriuret Pep 03/01/18 03/01/18 03/01/18 11:54 16:02 20:06 RBC Hgb Hct RDW Delta % (Auto) Seg Neutrophils % PT INR Sodium Chloride Carbon Dioxide BUN Creatinine Glucose POC Glucose 156 H 273 H 252 H AST Alkaline Phosphatase NT-Pro-B Natriuret Pep 03/02/18 03/02/18 03/02/18 05:44 10:35 12:18 RBC Hgb Hct RDW Delta % (Auto) Seg Neutrophils % PT INR Sodium 135 L Chloride Carbon Dioxide 20 L BUN 24 H Creatinine Glucose 225 H POC Glucose 165 H 218 H AST Alkaline Phosphatase NT-Pro-B Natriuret Pep Allied health notes reviewed: nursing
[2018-03-02] MEDS ORDERED: LANTUS SUB-Q SCH (22:00)
[2018-03-03] MEDS: NORCO 5/325 PO PRN (05:50)
[2018-03-03 09:22] VITALS: BP 143/76
[2018-03-03] MEDS: BABY ASPIRIN PO SCH (09:37)
[2018-03-03] MEDS: RANEXA ER PO SCH (09:38)
[2018-03-03] MEDS: XARELTO PO SCH (09:38)
[2018-03-03] MEDS: RisperDAL PO SCH (09:38)
[2018-03-03] MEDS: NORVASC PO SCH (09:38)
[2018-03-03] MEDS: SODIUM CHLORIDE FLUSH SYRINGE 10 ML IV SCH (09:39)
[2018-03-03] MEDS: FEOSOL PO SCH (09:39)
[2018-03-03] MEDS: IMDUR PO SCH (09:39)
[2018-03-03] MEDS: COREG PO SCH (09:39)
[2018-03-03] MEDS: PEPCID PO SCH (09:39)
[2018-03-03] MEDS: HumuLIN R SUB-Q SCH (09:48)
--- NOTE | 2018-03-03 11:37 | Discharge Summary ---
Providers - Providers Date of Admission: 02/27/18 12:56 Date of discharge: 03/03/18 Attending physician: ROB SALDANA 02/27/18 12:14 Consult to Physician [CONS] Routine Comment: Consulting Provider: DANN CHONG Physician Instructions: Reason For Exam: possible PE? 03/01/18 12:15 Consult to Physician [CONS] Routine Comment: Consulting Provider: LISETH VANG Physician Instructions: Reason For Exam: chf with chest pain 03/02/18 15:17 Physical Therapy Evaluation and Treat [CONS] Routine Comment: Reason For Exam: placement Hospitalization Reason for admission: chest pain Condition: Stable Hospital course: Discharge diagnosis and management: Acute respiratory failure, POA - gets SOB on ambulation/exertion - on N/c now, could be from underlying CHF - assessment for home O2 requirement pending Right-sided Chest pain - likely sec to costrochondritis vs PE - Serial troponin levels negative - no further workup per cardiology H/O CAD s/p cardiac stents, recent Cardiac cath on 09/23/2017 (nonobstructive CAD ), CHF, EF 25-30% on 2d echo 10/2017 with ICD, - cont statin, BB H/o PE on Xarelto, unsure about compliance - VQ scan suggested for intermediate possibility for PE (Recent CTA during prior admission was negative for PE) - Doppler doppler ultrasound BLE negative - per pulmonary no need to repeat CTA chest as there is a risk for contrast induced nephropathy, - Now cont xarelto HTN, uncontrolled - Continue Coreg, amlodipine added - Adjust meds as needed DM2 with hyperglycemia (a1c 12.6 on 10/30) - Continue SSI, added Lantus HUSEYIN, likely vasomotor nephropathy - Creatinine level improving, will monitor - Lasix and lisinopril on hold Physical debility, consult PT Dvt px, xarelto Disposition: For discharge after being eval for home o2 requirement Hospitalist Physical General appearance: Present: no acute distress - EENT Eyes: Present: PERRL, EOM intact ENT: hearing intact, clear oral mucosa - Neck Neck: Present: supple - Respiratory Respiratory effort: slightly labored Respiratory: bilateral: few crackles - Cardiovascular Rhythm: regular Heart Sounds: Present: S1 & S2 - Extremities Extremities: No edema - Abdominal General gastrointestinal: soft, non-tender, normal bowel sounds - Neurologic Neurologic: CNII-XII intact Disposition: DC/[place]-06 HOME UNDER HOME [facility] Time spent for discharge: 34 minutes Core Measure Documentation - Palliative Care Palliative Care/ Comfort Measures: Not Applicable - Core Measures Any of the following diagnoses?: none Exam - Physical Exam Narrative exam: GENERAL: well-developed and well-nourished lying on bed appeared to be in no discomfort. HEENT: Normocephalic. Atraumatic. No conjunctival congestion or icterus. Patient has moist mucous membranes. NECK: Supple. Trachea midline. CHEST/LUNGS: Clear to auscultated bilaterally, breathing nonlabored. No wheezes crackles or rhonchi. HEART/CARDIOVASCULAR: Regular in rate and rhythm. S1 and S2 positive. ABDOMEN: Abdomen is soft, nontender. Patient has normal bowel sounds. SKIN: There is no rash. Warm and dry. NEURO: No focal motor deficit. Follows command. MUSCULOSKELETAL: No joint effusion or tenderness. EXTRIMITY: No edema, no cyanosis or clubbing. PSYCH: Cooperative. - Constitutional Vitals: Temp Pulse Resp BP Pulse Ox 98.6 F 75 20 143/76 100 03/03/18 09:21 03/03/18 09:39 03/03/18 09:21 03/03/18 09:39 03/03/18 09:21 Plan Activity: advance as tolerated Weight Bearing Status: Non-Weight Bearing Diet: low fat, low salt Follow up with: JESSIE LEIVA [Other] - 3-5 Days
== END 2018-03-03 18:57 | disposition home health service (06) | DRG 682 ==
LOC: ED 05:38 → 4A 12:56
PROVIDERS: ADMIT Internal Medicine; ATTEND Internal Medicine
DX: N17.0 Acute kidney failure with tubular necrosis (principal); J96.00 Acute respiratory failure, unspecified whether with hypoxia or hypercapnia; M94.0 Chondrocostal junction syndrome [Tietze]; I25.10 Atherosclerotic heart disease of native coronary artery without angina pectoris; E11.65 Type 2 diabetes mellitus with hyperglycemia; I25.5 Ischemic cardiomyopathy; I08.3 Combined rheumatic disorders of mitral, aortic and tricuspid valves; I11.0 Hypertensive heart disease with heart failure; I50.9 Heart failure, unspecified; E78.5 Hyperlipidemia, unspecified; I44.7 Left bundle-branch block, unspecified; J44.9 Chronic obstructive pulmonary disease, unspecified; Z86.711 Personal history of pulmonary embolism; Z79.01 Long term (current) use of anticoagulants; Z95.810 Presence of automatic (implantable) cardiac defibrillator; Z95.5 Presence of coronary angioplasty implant and graft; Z88.5 Allergy status to narcotic agent; Z79.899 Other long term (current) drug therapy; Z79.51 Long term (current) use of inhaled steroids; Z79.84 Long term (current) use of oral hypoglycemic drugs; Z90.710 Acquired absence of both cervix and uterus; Z79.82 Long term (current) use of aspirin
CPT/HCPCS: 36415; 71045; 76770; 78582; 80048; 80074; 81001; 82140; 82962; 83735; 83880; 84484; 85025; 85610; 85730; 87040; 87086; 87116; 93005; 93010; 93970; 96374; 96375; A9270-GY; A9540; A9558; J1650; J1815; J2543; J7030

== ENCOUNTER 2018-03-18 05:13 | Inpatient (IN) | payer MEDICAID ==
[2018-03-18] MEDS ORDERED: ASPIRIN PO ONE (06:02)
[2018-03-18 06:53] LABS: BUN/Creatinine Ratio 22; Blood Urea Nitrogen 28 mg/dL (7-17); Calcium 9.5 mg/dL (8.4-10.2); Hemolysis Index 44
--- NOTE | 2018-03-18 07:57 | Emergency Department Report ---
ED Chest Pain HPI - General Chief Complaint: Chest Pain Stated Complaint: CHEST PAIN Time Seen by Provider: 03/18/18 07:55 Source: patient Mode of arrival: Ambulatory Limitations: No Limitations - History of Present Illness Initial Comments: This is a 57-year-old female who has right-sided chest pain which shortness breath and nausea recorded at triage. However the patient tells me that the pain is left sided nonpleuritic and nonradiating. She states it is on the left breast and not the right side at all. She did verify that she had some nausea. She stated that she has had chest pain like this many times before. She has had a history of pulmonary embolism with a recent negative workup for pulmonary embolism. She does have a history of ischemic cardiomyopathy with stents. A heart catheterization in September 2017 did not reveal any obstructive disease or stent blockage. At the time of my exam the patient has only mild persistent discomfort. She described it as a sure life. He did not take nitroglycerin. She states she is compliant with her blood pressure medicine. She states she is compliant with her Xarelto. February 2018 discharge Summary: Discharge diagnosis and management: Acute respiratory failure, POA - gets SOB on ambulation/exertion - on N/c now, could be from underlying CHF - assessment for home O2 requirement pending Right-sided Chest pain - likely sec to costrochondritis vs PE - Serial troponin levels negative - no further workup per cardiology H/O CAD s/p cardiac stents, recent Cardiac cath on 09/23/2017 (nonobstructive CAD ), CHF, EF 25-30% on 2d echo 10/2017 with ICD, - cont statin, BB H/o PE on Xarelto, unsure about compliance - VQ scan suggested for intermediate possibility for PE (Recent CTA during prior admission was negative for PE) - Doppler doppler ultrasound BLE negative - per pulmonary no need to repeat CTA chest as there is a risk for contrast induced nephropathy, - Now cont xarelto HTN, uncontrolled - Continue Coreg, amlodipine added - Adjust meds as needed DM2 with hyperglycemia (a1c 12.6 on 10/30) - Continue SSI, added Lantus HUSEYIN, likely vasomotor nephropathy - Creatinine level improving, will monitor - Lasix and lisinopril on hold Physical debility, consult PT Dvt px, xarelto Disposition: For discharge after being eval for home o2 requirement Complaint: chest pain -: days(s) Onset: during rest Pain Location: left chest Pain Radiation: none Severity: mild, moderate Quality: pressure Consistency: intermittent Improves With: nothing Worsens With: nothing re: nausea. denies: vomting, diaphoresis, dyspnea Other Symptoms: denies: cough, fever, syncope - Related Data Home Medications Medication Instructions Recorded Confirmed Last Taken Lisinopril [Zestril TAB] 40 mg PO DAILY 02/27/18 02/27/18 02/26/18 Previous Rx's Medication Instructions Recorded Last Taken Type AtorvaSTATin [Lipitor] 40 mg PO QHS #30 tablet 08/15/16 02/26/18 Rx Carvedilol [Coreg] 25 mg PO BID #60 tablet 09/02/16 02/26/18 Rx Furosemide [Lasix TAB] 40 mg PO QDAY #30 tablet 09/02/16 02/26/18 Rx ALBUTEROL Inhaler (OR & NICU) 2 puff IH QID PRN #1 inhalation 06/28/17 Unknown Rx [ProAir HFA Inhaler] Aspirin [Aspirin BABY CHEW TAB] 81 mg PO QDAY #30 tab.chew 09/23/17 02/26/18 Rx Ferrous Sulfate 325 mg PO DAILY #30 tablet.dr 09/23/17 02/26/18 Rx Acetaminophen [Acetaminophen TAB] 650 mg PO Q4H PRN #30 tablet 11/06/17 Unknown Rx Famotidine [Pepcid] 20 mg PO BID #60 tablet 11/06/17 Unknown Rx Ferrous Sulfate [Feosol 325 MG tab] 325 mg PO QDAY tablet 12/24/17 02/26/18 Rx ISOSORBIDE MONOnitrate [Imdur ER] 30 mg PO QDAY #30 tablet 12/24/17 Unknown Rx Ranolazine [Ranexa] 500 mg PO BID #60 tab.er.12h 12/24/17 02/26/18 Rx Rivaroxaban [Xarelto] 20 mg PO QDAY #30 tablet 12/24/17 02/26/18 Rx risperiDONE [RisperiDONE] 1 mg PO DAILY #30 tablet 12/24/17 02/26/18 Rx Allergies Allergy/AdvReac Type Severity Reaction Status Date / Time codeine Allergy Hives Verified 06/15/14 05:41 Heart Score - HEART Score History: Moderately suspicious EKG: Non-specific Age: 45-65 Risk factors: > 3 risk factors or hx of atherosclerotic disease Troponin: < normal limit HEART Score: 5 - Critical Actions Critical Actions: 4-6 pts:12-16.6% risk of adverse cardiac event. Should be admitted ED Review of Systems ROS: Stated complaint: CHEST PAIN Other details as noted in HPI Constitutional: denies: chills, fever Eyes: denies: eye pain, eye discharge, vision change ENT: denies: ear pain, throat pain Respiratory: denies: cough, shortness of breath, wheezing Cardiovascular: chest pain. denies: palpitations Endocrine: no symptoms reported Gastrointestinal: nausea. denies: abdominal pain, vomiting, diarrhea Genitourinary: denies: urgency, dysuria, discharge Musculoskeletal: denies: back pain, joint swelling, arthralgia Skin: denies: rash, lesions Neurological: denies: headache, weakness, paresthesias Psychiatric: denies: anxiety, depression Hematological/Lymphatic: denies: easy bleeding, easy bruising ED Past Medical Hx - Past Medical History Previous Medical History?: Yes Hx Hypertension: Yes Hx Heart Attack/AMI: Yes (2003) Hx Congestive Heart Failure: Yes Hx Diabetes: Yes Hx Deep Vein Thrombosis: No Hx Seizures: No Hx Asthma: Yes Hx COPD: Yes Hx Dementia: Yes Hx HIV: No Additional medical history: CAD - Surgical History Past Surgical History?: Yes Hx Coronary Stent: Yes ((8) heart stents) Hx Pacemaker: No Hx Internal Defibrillator: No Additional Surgical History: HYSTERECTOMY - Social History Smoking Status: Never Smoker Substance Use Type: None - Medications Home Medications: Home Medications Medication Instructions Recorded Confirmed Last Taken Type AtorvaSTATin [Lipitor] 40 mg PO QHS #30 tablet 08/15/16 02/27/18 02/26/18 Rx Carvedilol [Coreg] 25 mg PO BID #60 tablet 09/02/16 02/27/18 02/26/18 Rx Furosemide [Lasix TAB] 40 mg PO QDAY #30 tablet 09/02/16 02/27/18 02/26/18 Rx ALBUTEROL Inhaler (OR & NICU) 2 puff IH QID PRN #1 inhalation 06/28/17 02/27/18 Unknown Rx [ProAir HFA Inhaler] Aspirin [Aspirin BABY CHEW TAB] 81 mg PO QDAY #30 tab.chew 09/23/17 02/27/18 Rx Ferrous Sulfate 325 mg PO DAILY #30 tablet.dr 09/23/17 02/27/18 02/26/18 Rx Acetaminophen [Acetaminophen TAB] 650 mg PO Q4H PRN #30 tablet 11/06/17 Unknown Rx Famotidine [Pepcid] 20 mg PO BID #60 tablet 11/06/17 03/01/18 Unknown Rx Ferrous Sulfate [Feosol 325 MG tab] 325 mg PO QDAY tablet 12/24/17 02/27/18 Rx ISOSORBIDE MONOnitrate [Imdur ER] 30 mg PO QDAY #30 tablet 12/24/17 03/01/18 Unknown Rx Ranolazine [Ranexa] 500 mg PO BID #60 tab.er.h 12/24/17 02/27/18 02/26/18 Rx Rivaroxaban [Xarelto] 20 mg PO QDAY #30 tablet 12/24/17 02/27/18 02/26/18 Rx risperiDONE [RisperiDONE] 1 mg PO DAILY #30 tablet 12/24/17 02/27/18 02/26/18 Rx Lisinopril [Zestril TAB] 40 mg PO DAILY 02/27/18 02/27/18 02/26/18 History ED Physical Exam - General Limitations: No Limitations General appearance: alert, in no apparent distress - Head Head exam: Present: atraumatic, normocephalic - Eye Eye exam: Present: normal appearance. Absent: scleral icterus - ENT ENT exam: Present: mucous membranes moist - Neck Neck exam: Present: normal inspection. Absent: tenderness, meningismus - Respiratory Respiratory exam: Present: normal lung sounds bilaterally. Absent: respiratory distress - Cardiovascular Cardiovascular Exam: Present: regular rate, normal rhythm. Absent: systolic murmur, diastolic murmur, rubs, gallop - GI/Abdominal GI/Abdominal exam: Present: soft, normal bowel sounds. Absent: distended, tenderness, guarding, rebound, rigid - Extremities Exam Extremities exam: Present: normal inspection. Absent: pedal edema, calf tenderness - Back Exam Back exam: Present: normal inspection - Neurological Exam Neurological exam: Present: alert, oriented X3, CN II-XII intact. Absent: motor sensory deficit - Psychiatric Psychiatric exam: Present: normal affect, normal mood - Skin Skin exam: Present: warm, dry, intact, normal color. Absent: rash ED Course Vital Signs 03/18/18 05:58 Temperature 97.5 F L Pulse Rate 86 Respiratory 18 Rate Blood Pressure 184/103 O2 Sat by Pulse 100 Oximetry - Reevaluation(s) Reevaluation #1: Discussed with Dr. Shi. The patient was admitted to the hospital for further care and evaluation. 03/18/18 10:49 YANICK score - Yanick Score Age > 65: (0) No Aspirin use within the Past 7 Days: (1) Yes 3 or more CAD Risk Factors: (1) Yes 2 or more Angina events in past 24 hrs: (0) No Known CAD with more than 50% Stenosis: (1) Yes Elevated Cardiac Markers: (0) No ST Deviation Greater than 0.5mm: (0) No YANICK Score: 3 ED Medical Decision Making - Lab Data Result diagrams: 03/18/18 07:45 03/18/18 06:12 Laboratory Results - last 24 hr 03/18/18 03/18/18 03/18/18 06:12 07:45 08:35 WBC 7.1 RBC 3.23 L Hgb 10.0 L Hct 30.6 MCV 95 MCH 31 MCHC 33 RDW 20.8 H Plt Count 279 Lymph % (Auto) Measurement Advisor [place] % (Auto) Measurement Advisor Eos % (Auto) Measurement Advisor Baso % (Auto) Measurement Advisor Lymph # Measurement Advisor [place] # Measurement Advisor Eos # Measurement Advisor Baso # Measurement Advisor Seg Neutrophils % Measurement Advisor Seg Neutrophils # Measurement Advisor PT 14.0 INR 1.03 APTT 29.2 D-Dimer 535.58 H Sodium 131 L Potassium 4.6 Chloride 95.7 L Carbon Dioxide 18 L Anion Gap 22 BUN 28 H Creatinine 1.3 H Estimated GFR 51 BUN/Creatinine Ratio 22 Glucose 369 H Calcium 9.5 Total Bilirubin Direct Bilirubin Indirect Bilirubin AST ALT Alkaline Phosphatase Troponin T < 0.010 NT-Pro-B Natriuret Pep Total Protein Albumin Albumin/Globulin Ratio 03/18/18 08:36 WBC RBC Hgb Hct MCV MCH MCHC RDW Plt Count Lymph % (Auto) [place] % (Auto) Eos % (Auto) Baso % (Auto) Lymph # [place] # Eos # Baso # Seg Neutrophils % Seg Neutrophils # PT INR APTT D-Dimer Sodium Potassium Chloride Carbon Dioxide Anion Gap BUN Creatinine Estimated GFR BUN/Creatinine Ratio Glucose Calcium Total Bilirubin 0.50 Direct Bilirubin < 0.2 Indirect Bilirubin 0.3 AST 28 ALT 18 Alkaline Phosphatase 180 H Troponin T < 0.010 NT-Pro-B Natriuret Pep 2581 H Total Protein 8.3 H Albumin 4.0 Albumin/Globulin Ratio 0.9 - EKG Data -: EKG Interpreted by Me EKG shows normal: sinus rhythm, axis, intervals, QRS complexes Rate: normal - EKG Data Interpretation: nonspecific ST-T wave pj, LVH, other (biatrial enlargement occasional PVCs and nonspecific changes repolarization abnormality consistent with LVH) - Radiology Data Radiology results: report reviewed (cardiomegaly without decompensation) Critical care attestation.: If time is entered above; I have spent that time in minutes in the direct care of this critically ill patient, excluding procedure time. ED Disposition Clinical Impression: Renal insufficiency, Increased anion gap metabolic acidosis, Poorly-controlled hypertension CAD (coronary artery disease) Qualifiers: Coronary Disease-Associated Artery/Lesion type: unspecified vessel or lesion type [place] vs. transplanted heart: [place] heart Associated angina: angina presence unspecified Qualified Code(s): I25.10 - Atherosclerotic heart disease of [place] coronary artery without angina pectoris Chest pain Qualifiers: Chest pain type: unspecified Qualified Code(s): R07.9 - Chest pain, unspecified Hyperglycemia due to type 2 diabetes mellitus Qualifiers: Diabetes mellitus halfway insulin use: with halfway use Qualified Code(s): E11.65 - Type 2 diabetes mellitus with hyperglycemia; Z79.4 - long term care administrator (current ) use of insulin Disposition: -09 OP ADMIT IP TO THIS HOSP Is pt being admited?: Yes Does the pt Need Aspirin: Yes Condition: Stable Instructions: Chest Pain (ED), Diabetes Mellitus Type 2 in Adults (ED) Referrals: PRIMARY CARE, [Primary Care Provider] - 3-5 Days Time of Disposition: 10:53
[2018-03-18] MEDS ORDERED: NITRO-BID 2% TP ONE ×2 (07:59→10:14)
[2018-03-18 08:03] LABS: Hematocrit 30.6 % (30.3-42.9); Mean Corpuscular HGB Conc 33 % (30-34); Mean Corpuscular Hemoglobin 31 pg (28-32); Mean Corpuscular Volume 95 fl (79-97); Platelet Count 279 K/mm3 (140-440); Red Blood Count 3.23 M/mm3 (3.65-5.03)
[2018-03-18 08:04] LABS: Red Cell Distribution Width 20.8 % (13.2-15.2)
--- NOTE | 2018-03-18 08:36 | XRay Report ---
AP CHEST: HISTORY: Hypertension Mild cardiomegaly and single-lead pacemaker device appears stable since 02/27/18. No evidence for venous congestion, pleural effusion, infiltrate or pneumothorax. The lungs are clear. IMPRESSION: Mild cardiomegaly. Lungs clear.
[2018-03-18 09:10] LABS: Alanine Aminotransferase 18 units/L (7-56)
[2018-03-18 09:12] LABS: INR 1.03 (0.87-1.13)
[2018-03-18 09:12] LABS: Bilirubin,Direct < 0.2 mg/dL (0-0.2)
[2018-03-18 09:13] LABS: Partial Thromboplastin Time 29.2 Sec. (24.2-36.6)
[2018-03-18] MEDS ORDERED: ASPIRIN ONE (10:14)
[2018-03-18] MEDS ORDERED: HumuLIN R IV ONE (10:50)
[2018-03-18] MEDS ORDERED: NACL 0.9% 1000 ML 1,000 ML IV ONE (10:50)
--- NOTE | 2018-03-18 12:25 | History and Physical Report ---
History of Present Illness Date of examination: 03/18/18 Date of admission: 03/18/18 Chief complaint: chest pain History of present illness: 57 y/o female with h/o CAD, diabetes, heart failure, hypertension, hyperlipidemia, pulmonary embolism on xarelto presented with complaint of left sided chest pain with tenderness with radiation to her arm. Her chest pain started since yesterday morning while lying on couch. She describes her pain as constant, radiating to left arm and w/o any aggravating or relieving factor. She denies any rigor or chills. She denies any leg pain or recent travel. Her CE normal and no specific changes on EKG. She is getting admitted for further evaluation and management. Past History Past Medical History: CAD, diabetes, heart failure, hypertension, hyperlipidemia , pulmonary embolism, other (pulm HTN) Past Surgical History: PTCA, Other (AICD in situ) Social history: no significant social history Family history: no significant family history Review of System: Constitutional: no fever, no chills, no weight loss Ears, eyes, nose, mouth and throat: no nasal congestion, no nasal discharge, no sinus pressure, no vision change, no red eye. Neck: No neck pain or rigidity. Cardiovascular: + chest pain, no orthopnea, no palpitations, no leg swelling Respiratory: no shortness of breath, no cough, no congestion, no wheezing Gastrointestinal: no abdominal pain, no nausea, no vomiting Genitourinary : no dysuria, no hematuria Musculoskeletal: no joint swelling or muscle ache Integumentary: no rash, no pruritis Neurological: no parathesias, no numbness, no tingling Endocrine: no cold or heat intolerance, no polyuria or polydipsia Hematologic/Lymphatic: no easy bruising, no easy bleeding, no gland swelling Allergic/Immunologic: no urticaria, no angioedema. Medications and Allergies Allergies Allergy/AdvReac Type Severity Reaction Status Date / Time codeine Allergy Hives Verified 06/15/14 05:41 Home Medications Medication Instructions Recorded Confirmed Last Taken Type Aspirin [Aspirin BABY CHEW TAB] 81 mg PO QDAY #30 tab.chew 09/23/17 03/18/18 Rx Acetaminophen [Acetaminophen TAB] 650 mg PO Q4H PRN #30 tablet 11/06/17 Unknown Rx Famotidine [Pepcid] 20 mg PO BID #60 tablet 11/06/17 03/18/18 Unknown Rx ISOSORBIDE MONOnitrate [Imdur ER] 30 mg PO QDAY #30 tablet 12/24/17 03/18/18 Unknown Rx Ranolazine [Ranexa] 500 mg PO BID #60 tab.er.12h 12/24/17 03/18/18 02/26/18 Rx risperiDONE [RisperiDONE] 1 mg PO DAILY #30 tablet 12/24/17 03/18/18 02/26/18 Rx Lisinopril [Zestril TAB] 40 mg PO DAILY 02/27/18 03/18/18 02/26/18 History Ferrous Sulfate [Feosol 325 MG tab] 325 mg PO DAILY 03/18/18 03/18/18 Unknown History Rivaroxaban [Xarelto] 20 mg PO DAILY 03/18/18 03/18/18 Unknown History Active Meds: Active Medications Sodium Chloride (Nacl 0.9% 1000 Ml) 1,000 mls @ 125 mls/hr IV ONCE ONE Stop: 03/18/18 18:49 Last Admin: 03/18/18 12:14 Dose: 125 mls/hr Exam - Physical Exam Narrative exam: GENERAL: well-developed elderly female lying on bed appeared to be in no discomfort. HEENT: Normocephalic. Atraumatic. No conjunctival congestion or icterus. Patient has moist mucous membranes. NECK: Supple. Trachea midline. CHEST/LUNGS: Clear to auscultated bilaterally, breathing nonlabored. No wheezes crackles or rhonchi. HEART/CARDIOVASCULAR: Regular in rate and rhythm. S1 and S2 positive. ABDOMEN: Abdomen is soft, nontender. Patient has normal bowel sounds. SKIN: There is no rash. Warm and dry. NEURO: No focal motor deficit. Follows command. MUSCULOSKELETAL: No joint effusion or tenderness. EXTRIMITY: No edema, no cyanosis or clubbing. PSYCH: Cooperative. - Constitutional Vitals: Temp Pulse Resp BP Pulse Ox 97.5 F L 81 10 L 128/75 99 03/18/18 05:58 03/18/18 12:16 03/18/18 12:16 03/18/18 12:16 03/18/18 12:16 Results - Labs CBC & Chem 7: 03/18/18 16:21 03/18/18 17:57 Labs: Abnormal lab results 03/18/18 03/18/18 03/18/18 Range/Units 06:12 07:45 08:35 RBC 3.23 L (3.65-5.03) M/mm3 Hgb 10.0 L (10.1-14.3) gm/dl RDW 20.8 H (13.2-15.2) % D-Dimer 535.58 H (0-234) ng/mlDDU Sodium 131 L (137-145) mmol/L Chloride 95.7 L (98-107) mmol/L Carbon Dioxide 18 L (22-30) mmol/L BUN 28 H (7-17) mg/dL Creatinine 1.3 H (0.7-1.2) mg/dL Glucose 369 H (65-100) mg/dL POC Glucose (70-105) Alkaline Phosphatase (35-129) units/L NT-Pro-B Natriuret Pep (0-900) pg/mL Total Protein (6.3-8.2) g/dL 03/18/18 03/18/18 Range/Units 08:36 11:42 RBC (3.65-5.03) M/mm3 Hgb (10.1-14.3) gm/dl RDW (13.2-15.2) % D-Dimer (0-234) ng/mlDDU Sodium (137-145) mmol/L Chloride (98-107) mmol/L Carbon Dioxide (22-30) mmol/L BUN (7-17) mg/dL Creatinine (0.7-1.2) mg/dL Glucose (65-100) mg/dL POC Glucose 250 H (70-105) Alkaline Phosphatase 180 H (35-129) units/L NT-Pro-B Natriuret Pep 2581 H (0-900) pg/mL Total Protein 8.3 H (6.3-8.2) g/dL - Imaging and Cardiology Chest x-ray: report reviewed Assessment and Plan Chest pain, leftsided, - need to r/o ACS - trend CE, repeat EKG - stress test in the am, cardiology consult CAD s/p cardiac stents, recent Cardiac cath on 09/23/2017 (non obstructive CAD), CHF, EF 25-30% with ICD, - cont statin, aspirin, BB H/o PE on Xarelto, unsure about compliance - cont xarelto, VQ scan showed no acute PE HTN, uncontrolled - resumed home meds, adjust as needed Uncontrolled DM, a1c 12.6 on 10/30 - diabetic diet, home insulin dose CKD - follow renal function Dvt px, xarelto Radiological data: CXR; Mild cardiomegaly. Lungs clear. Pulmonary Vq scan; Low probability for pulmonary embolus.
[2018-03-18] MEDS ORDERED: TYLENOL PO PRN (12:27)
[2018-03-18] MEDS ORDERED: ZOFRAN IV PRN (12:27)
[2018-03-18] MEDS ORDERED: NITROSTAT SL PRN (12:27)
[2018-03-18] MEDS ORDERED: SODIUM CHLORIDE FLUSH SYRINGE 10 ML IV PRN (12:27)
--- NOTE | 2018-03-18 14:26 | Consultation ---
History of Present Illness Consult date: 03/18/18 Requesting physician: ROB SALDANA Consult reason: chest pain History of present illness: The patient is a 57 year old female with a history of CAD s/p PCI, ICMP, AICD in situ, HTN, DM, hyperlipidemia, anemia, PE anticoagulated with Xarelto, pulmonary HTN and recurrent chest pain who presented with complaints of intermittent, nonexertional, midsternal sharp chest pain for several days prior to arrival. The pain was associated with SOB. She denies any SOB, nausea, vomiting, diaphoresis, dizziness or syncope. She reports compliance with her home medication regimen, including Xarelto. LHC done 09/2017 showed mild to mod diffuse nonobstructive CAD with patent stents in the prox and mid LAD, mid circ, and full metal jacket of the prox, mid and distal RCA, no significant obstructive disease identified, EF 25-30%. Echo done 10/2017 showed EF 25-30%, LA mild to mod dilated, RA mildly dilated, mod to severe MR, mod to severe TR, mild AR, RV systolic function mildly reduced , severe pulm HTN with RVSP 61mmHg, minimal pericardial effusion. Medications and Allergies Allergies Allergy/AdvReac Type Severity Reaction Status Date / Time codeine Allergy Hives Verified 06/15/14 05:41 Home Medications Medication Instructions Recorded Confirmed Last Taken Type Aspirin [Aspirin BABY CHEW TAB] 81 mg PO QDAY #30 tab.chew 09/23/17 03/18/18 Rx Acetaminophen [Acetaminophen TAB] 650 mg PO Q4H PRN #30 tablet 11/06/17 Unknown Rx Famotidine [Pepcid] 20 mg PO BID #60 tablet 11/06/17 03/18/18 Unknown Rx ISOSORBIDE MONOnitrate [Imdur ER] 30 mg PO QDAY #30 tablet 12/24/17 03/18/18 Unknown Rx Ranolazine [Ranexa] 500 mg PO BID #60 tab.er.12h 12/24/17 03/18/18 02/26/18 Rx risperiDONE [RisperiDONE] 1 mg PO DAILY #30 tablet 12/24/17 03/18/18 02/26/18 Rx Lisinopril [Zestril TAB] 40 mg PO DAILY 02/27/18 03/18/18 02/26/18 History Ferrous Sulfate [Feosol 325 MG tab] 325 mg PO DAILY 03/18/18 03/18/18 Unknown History Rivaroxaban [Xarelto] 20 mg PO DAILY 03/18/18 03/18/18 Unknown History Active Meds: Active Medications Acetaminophen (Tylenol) 650 mg PO Q4H PRN PRN Reason: Pain MILD(1-3)/Fever >100.5/[facility] Aspirin (Ecotrin) 325 mg PO QDAY [facility] Atorvastatin Calcium (Lipitor) 40 mg PO QHS [facility] Carvedilol (Coreg) 3.125 mg PO BID [facility] Ferrous Sulfate (Feosol) 325 mg PO DAILY [facility] Sodium Chloride (Nacl 0.9% 1000 Ml) 1,000 mls @ 125 mls/hr IV ONCE ONE Stop: 03/18/18 18:49 Last Admin: 03/18/18 12:14 Dose: 125 mls/hr Morphine Sulfate (Morphine) 2 mg IV Q4H PRN PRN Reason: Pain, Moderate (4-6) Nitroglycerin (Nitrostat) 0.4 mg SL Q5M PRN PRN Reason: Chest Pain Ondansetron HCl (Zofran) 4 mg IV Q8H PRN PRN Reason: Nausea And Vomiting Pantoprazole Sodium (Protonix) 40 mg PO QDAY [facility] Ranolazine (Ranexa Er) 500 mg PO BID [facility] Risperidone (Risperdal) 1 mg PO DAILY [facility] Rivaroxaban (Xarelto) 20 mg PO DAILY [facility]; Protocol Sodium Chloride (Sodium Chloride Flush Syringe 10 Ml) 10 ml IV BID [facility] Sodium Chloride (Sodium Chloride Flush Syringe 10 Ml) 10 ml IV PRN PRN PRN Reason: LINE FLUSH Physical Examination Vital Signs Temp Pulse Resp BP Pulse Ox 97.5 F L 85 18 184/103 100 03/18/18 05:18 03/18/18 05:18 03/18/18 05:18 03/18/18 05:18 03/18/18 05:18 Results 03/18/18 07:45 03/18/18 06:12 Cardiac Enzymes 03/18/18 Range/Units 08:36 AST 28 (5-40) units/L Coagulation 03/18/18 Range/Units 08:35 PT 14.0 (12.2-14.9) Sec. INR 1.03 (0.87-1.13) APTT 29.2 (24.2-36.6) Sec. CBC 03/18/18 Range/Units 07:45 WBC 7.1 (4.5-11.0) K/mm3 RBC 3.23 L (3.65-5.03) M/mm3 Hgb 10.0 L (10.1-14.3) gm/dl Hct 30.6 (30.3-42.9) % Plt Count 279 (140-440) K/mm3 Lymph # Breaker Off Dickinson # Breaker Off Eos # Breaker Off Baso # Breaker Off Comprehensive Metabolic Panel 03/18/18 03/18/18 Range/Units 06:12 08:36 Sodium 131 L (137-145) mmol/L Potassium 4.6 (3.6-5.0) mmol/L Chloride 95.7 L (98-107) mmol/L Carbon Dioxide 18 L (22-30) mmol/L BUN 28 H (7-17) mg/dL Creatinine 1.3 H (0.7-1.2) mg/dL Glucose 369 H (65-100) mg/dL Calcium 9.5 (8.4-10.2) mg/dL Direct Bilirubin < 0.2 (0-0.2) mg/dL Indirect Bilirubin 0.3 mg/dL AST 28 (5-40) units/L ALT 18 (7-56) units/L Alkaline Phosphatase 180 H (35-129) units/L Total Protein 8.3 H (6.3-8.2) g/dL Albumin 4.0 (3.9-5) g/dL - Imaging and Cardiology Cardiac cath: report reviewed (09/2017 showed mild to mod diffuse nonobstructive CAD with patent stents in the prox and mid LAD, mid circ, and full metal jacket of the prox, mid and distal RCA, no significant obstructive disease identified, EF 25-30%. ) EKG: report reviewed, image reviewed EKG interpretations - Telemetry EKG Rhythm: Sinus Rhythm - EKG Sinus rhythms and dysrhythmias: sinus rhythm Chamber hypertrophy or enlargement: left ventricular hypertro Assessment and Plan ECG with no acute ischemic changes. Chest pain currently resolved. V/Q scan shows low prob for PE. In setting of [facility] 09/2017 which showed patent stents and nonobstructive CAD, Malgorzata negative for AMI, ECG with no acute ischemic changes and rather atypical nature of chest pain, no plans for repeat ischemic evaluation or echo at this time. Currently stable cardiac status. Pt may discharge home from cardiology standpoint on current cardiac regimen. Recommend follow up in our office with Brandee Ambrocio NP, within 1-2 weeks of hospital discharge ([phone]). The patient has been seen in conjunction with Dr. Wheeler who agrees with the assessment and plan of care. 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
--- NOTE | 2018-03-18 14:46 | Nuclear Medicine Report ---
LUNG SCAN, VENTILATION AND PERFUSION: History: Chest pain, elevated d-dimer. Technique: 5mci of Tc99m MAA was infused for the perfusion images. 15mci XE 133 gas was inhaled for the ventilatory images. Correlation is made with a chest x-ray dated 03/18/18. Findings: Inhalation of Xenon gas demonstrates a normal distribution of the activity throughout both lungs. The wash out phases show no focal retention of activity. After injection of Technetium 99m macroaggregated albumin gamma camera imaging of the lungs in multiple projections demonstrates normal pulmonary contours with a homogeneous distribution of activity. No focal areas of perfusion deficiency are identified. IMPRESSION: Low probability for pulmonary embolus.
[2018-03-18 16:54] LABS: Basophils # (Auto) 0.1 K/mm3 (0.0-0.1); Basophils % (Auto) 0.9 % (0.0-1.8); Eosinophils # (Auto) 0.2 K/mm3 (0.0-0.4); Eosinophils % (Auto) 3.6 % (0.0-4.3); Hematocrit 34.2 % (30.3-42.9); Hemoglobin 11.1 gm/dl (10.1-14.3); Lymphocytes # (Auto) 1.4 K/mm3 (1.2-5.4); Lymphocytes % (Auto) 22.5 % (13.4-35.0); Mean Corpuscular HGB Conc 32 % (30-34); Mean Corpuscular Hemoglobin 31 pg (28-32); Mean Corpuscular Volume 96 fl (79-97); Monocytes # (Auto) 0.6 K/mm3 (0.0-0.8); Monocytes % (Auto) 9.9 % (0.0-7.3); Platelet Count 278 K/mm3 (140-440); Red Blood Count 3.56 M/mm3 (3.65-5.03); Red Cell Distribution Width 21.5 % (13.2-15.2)
[2018-03-18] MEDS: PROTONIX PO SCH (17:00)
[2018-03-18] MEDS: RisperDAL PO SCH (17:00)
[2018-03-18 18:30] LABS: BUN/Creatinine Ratio 24; Blood Urea Nitrogen 24 mg/dL (7-17); Calcium 9.5 mg/dL (8.4-10.2); Hemolysis Index 63
[2018-03-18] MEDS: RANEXA ER PO SCH (21:19)
[2018-03-18] MEDS: COREG PO SCH (21:20)
[2018-03-18] MEDS: SODIUM CHLORIDE FLUSH SYRINGE 10 ML IV SCH (21:21)
[2018-03-18] MEDS ORDERED: PEPCID PO SCH (22:00)
[2018-03-19] MEDS: MORPHINE IV PRN ×3 (01:54→14:03)
[2018-03-19] MEDS: SODIUM CHLORIDE FLUSH SYRINGE 10 ML IV PRN ×2 (01:56→02:26)
[2018-03-19] MEDS ORDERED: FEOSOL PO SCH (10:00)
[2018-03-19] MEDS ORDERED: XARELTO PO SCH (10:00)
[2018-03-19] MEDS ORDERED: ZESTRIL PO SCH (10:00)
[2018-03-19] MEDS ORDERED: ECOTRIN PO SCH (10:00)
[2018-03-19] MEDS: PROTONIX PO SCH (10:05)
[2018-03-19] MEDS: RANEXA ER PO SCH (10:06)
[2018-03-19] MEDS: SODIUM CHLORIDE FLUSH SYRINGE 10 ML IV SCH (10:07)
[2018-03-19] MEDS: COREG PO SCH (11:04)
[2018-03-19 11:13] VITALS: BP 117/75
--- NOTE | 2018-03-19 13:49 | Discharge Summary ---
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 Hospitalization Condition: Stable Hospital course: Discharge diagnosis and management: Chest pain, leftsided, likely GERD - ruled out ACS - trended CE, no change on EKG -cardiology consulted and no further intervention recommended CAD s/p cardiac stents, recent Cardiac cath on 09/23/2017 (non obstructive CAD), CHF, EF 25-30% with ICD, - cont statin, aspirin, BB H/o PE on Xarelto, unsure about compliance - cont xarelto, VQ scan showed no acute PE HTN, uncontrolled - resumed home meds, adjust as needed Uncontrolled DM, a1c 12.6 on 10/30 - diabetic diet, home insulin dose CKD - follow renal function Dvt px, xarelto Radiological data: CXR; Mild cardiomegaly. Lungs clear. Pulmonary Vq scan; Low probability for pulmonary embolus. Disposition: [id number] HOME UNDER HOME [facility] Time spent for discharge: 34 minutes Core Measure Documentation - Palliative Care Palliative Care/ Comfort Measures: Not Applicable - Core Measures Any of the following diagnoses?: none Exam - Constitutional Vitals: Temp Pulse Resp BP Pulse Ox 97.9 F 81 20 117/75 98 03/19/18 11:07 03/19/18 11:07 03/19/18 11:07 03/19/18 11:07 03/19/18 11:07 Plan Activity: advance as tolerated Weight Bearing Status: Weight Bear as Tolerated Diet: low fat, low salt Additional Instructions: f[facility] Follow up with: PRIMARY CAREMD [Primary Care Provider] - 3-5 Days Prescriptions: Carvedilol [Coreg] 3.125 mg PO BID #60 tablet
[2018-03-19] MEDS: RisperDAL PO SCH (14:15)
== END 2018-03-19 19:11 | disposition home or self-care (01) | DRG 392 ==
LOC: ED 05:13 → 4A 12:27
PROVIDERS: ADMIT Internal Medicine; ATTEND Internal Medicine
DX: K21.9 Gastro-esophageal reflux disease without esophagitis (principal); I25.10 Atherosclerotic heart disease of native coronary artery without angina pectoris; E11.65 Type 2 diabetes mellitus with hyperglycemia; E11.22 Type 2 diabetes mellitus with diabetic chronic kidney disease; F03.90 Unspecified dementia, unspecified severity, without behavioral disturbance, psychotic disturbance, mood disturbance, and anxiety; E87.2 Acidosis; J44.9 Chronic obstructive pulmonary disease, unspecified; I50.9 Heart failure, unspecified; I27.20 Pulmonary hypertension, unspecified; I44.7 Left bundle-branch block, unspecified; N18.9 Chronic kidney disease, unspecified; I25.5 Ischemic cardiomyopathy; I13.0 Hypertensive heart and chronic kidney disease with heart failure and stage 1 through stage 4 chronic kidney disease, or unspecified chronic kidney disease; Z86.711 Personal history of pulmonary embolism; Z95.5 Presence of coronary angioplasty implant and graft; Z79.01 Long term (current) use of anticoagulants; I25.2 Old myocardial infarction; Z90.710 Acquired absence of both cervix and uterus; Z79.899 Other long term (current) drug therapy; Z79.82 Long term (current) use of aspirin; Z95.810 Presence of automatic (implantable) cardiac defibrillator; Z79.84 Long term (current) use of oral hypoglycemic drugs
CPT/HCPCS: 36415; 71045; 78582; 80048; 80074; 82962; 83036; 83880; 84484; 85025; 85379; 85610; 85730; 93005; 93010; 96374; A9270-GY; A9540; A9558; J1815; J2270; J2405; J7030